=== PATIENT | male | born 1950 | race Caucasian/White ===

== ENCOUNTER 2021-03-01 10:46 | Outpatient (CLI) | payer MEDICARE, SELFPAY ==
--- NOTE | ~2021-03-01 | CT_ITS ---
EXAMINATION:CT lung screening DATE: 03/01/2021 11:16 INDICATION: Personal history of tobacco dependence. Current smoker with 30 pack year history. TECHNIQUE: Computed tomography (CT) of the chest was performed without intravenous contrast. Automate d exposure control and iterative reconstruction technique were employed. The dose-length product (DLP ) was 69.74 mGy-cm. COMPARISON: CT abdomen and pelvis 03/10/2009 FINDINGS: There is moderate emphysema. Calcified bilateral lung nodules and calcified right hilar lym ph nodes are consistent with old granulomatous disease. There is mild scarring at the lung apices. No pleural effusion. The heart size is normal. No pericardial effusion. There is mild right paratrachea l lymphadenopathy, likely reactive. Again seen is a 1.6 cm mass in right hepatic lobe, likely benign. Calcifications in the spleen are consistent with old granulomatous disease. There is a 4.0 cm cyst i n left kidney. There is mild thoracic spondylosis. IMPRESSION: 1. Lung-RADS category 2: Benign appearance or behavior. Continue annual screening with noncontrast lo w-dose chest CT in 12 months. Reviewed, dictated and finalized at location B. IMPRESSION: 1. Lung-RADS category 2: Benign appearance or behavior. Continue annual screeni ng with noncontrast low-dose chest CT in 12 months.
== END 2021-03-01 10:47 | disposition home or self-care (01) ==
LOC: ANHIMG 10:48
PROVIDERS: PCP Internal Medicine; Visit Provider Nurse Practitioner Family
DX: Z12.2 Encounter for screening for malignant neoplasm of respiratory organs (principal); Z87.891 Personal history of nicotine dependence
CPT/HCPCS: 71271

== ENCOUNTER 2022-02-13 13:42 | Outpatient (CLI) | payer MEDICARE, SELFPAY ==
--- NOTE | ~2022-02-13 | US_ITS ---
EXAMINATION: US carotid duplex BI DATE: 02/13/2022 14:50 INDICATION: Syncope and collapse. TECHNIQUE: Grayscale, color Doppler, and pulsed Doppler images of the cervical carotid arteries were obtained. The degree of vessel stenosis is placed in one of the following categories: normal, <50%, 5 0-69%, >=70% but less than near-occlusion, near-occlusion, or total occlusion. Note that percent sten osis relative to normal distal artery lumen diameter is indirectly measured from velocity measurement s as described by Sandro, et al. Radiology 2003; 229:340-346. COMPARISON: None. FINDINGS: RIGHT: The right common carotid artery (CCA) peak systolic velocity (PSV) is 92 cm/s. The right internal car otid artery (ICA) PSV is 112 cm/s. The right ICA end-diastolic velocity (EDV) is 36 cm/s. The right I CA/CCA PSV ratio is 1.2. Grayscale and color Doppler images yield an estimate of <50% diameter reduct ion from plaque in the ICA. There is antegrade flow in the right vertebral artery. LEFT: The left CCA PSV is 111 cm/s. The left ICA PSV is 107 cm/s. The left ICA EDV is 38 cm/s. The left ICA /CCA PSV ratio is 1.0. Grayscale and color Doppler images yield an estimate of <50% diameter reductio n from plaque in the ICA. There is antegrade flow in the left vertebral artery. IMPRESSION: 1. <50% stenosis in the right internal carotid artery. 2. <50% stenosis in the left internal carotid artery. Reviewed, dictated and finalized at location A.
== END 2022-02-13 13:43 | disposition home or self-care (01) ==
PROVIDERS: PCP Internal Medicine; Visit Provider Internal Medicine
DX: R55 Syncope and collapse (principal); I65.23 Occlusion and stenosis of bilateral carotid arteries
CPT/HCPCS: 93880

== ENCOUNTER 2022-03-05 10:47 | Outpatient (CLI) | payer MEDICARE, SELFPAY ==
--- NOTE | ~2022-03-05 | CT_ITS ---
EXAMINATION: CT lung screening DATE: 03/05/2022 11:05 INDICATION: Personal history of nicotine dependence, current smoker with 40 pack year history TECHNIQUE: Computed tomography (CT) of the chest was performed without intravenous contrast. The dose -length product (DLP) was 78.44 mGy-cm. Automated exposure control and iterative reconstruction techn [employer] were employed. COMPARISON: 03/01/2021 FINDINGS: There is moderate emphysema. There is a stable 3 mm nodule of the right lower lobe on image 63. Calcified pulmonary nodules and calcified right hilar lymph nodes are consistent with old granul omatous disease. The lungs are free of acute opacities. No pleural effusion or pneumothorax. There is mild bilateral gynecomastia. There is stable mild right paratracheal lymphadenopathy, likely reactiv e. A stable mass is noted in the right hepatic lobe. There is a cyst of the left kidney. IMPRESSION: 1. Lung-RADS category 2: Benign appearance or behavior. Continue annual screening with noncontrast lo w-dose chest CT in 12 months. Reviewed, dictated and finalized at location B. IMPRESSION: 1. Lung-RADS category 2: Benign appearance or behavior. Continue annual screeni ng with noncontrast low-dose chest CT in 12 months.
== END 2022-03-05 10:48 | disposition home or self-care (01) ==
PROVIDERS: PCP Internal Medicine; Visit Provider Physician Assistant
DX: Z12.2 Encounter for screening for malignant neoplasm of respiratory organs (principal); Z87.891 Personal history of nicotine dependence
CPT/HCPCS: 71271

== ENCOUNTER 2022-03-22 09:44 | Outpatient (CLI) | payer MEDICARE, SELFPAY ==
--- NOTE | ~2022-03-22 | CT_ITS ---
EXAMINATION: CT abdomen pelvis w con DATE: 03/22/2022 10:29 INDICATION: Bilateral lower abdominal mass. Weight loss. TECHNIQUE: Computed tomography (CT) of the abdomen and pelvis was performed with 100 mL Omnipaque 350 intravenous contrast. Automated exposure control and iterative reconstruction technique were employe d. The dose-length product was 165.83 mGy-cm. COMPARISON: CT abdomen and pelvis 03/10/2009 FINDINGS: The visualized portions of the lung bases demonstrate mild emphysema. Calcified right lung nodules are consistent with old granulomatous disease. No pleural effusion. The heart size is normal. No pericardial effusion. There is a 9 mm mass in left hepatic lobe that demonstrated peripheral hype renhancement on the prior CT, likely a hemangioma. There is a chronic 2.6 cm hyperenhancing mass in r ight hepatic lobe, which may be a hemangioma or focal nodular hyperplasia. The gallbladder is normal. Calcifications in the spleen are consistent with old granulomatous disease. The pancreas, adrenal gl ands, and right kidney are normal. There is a 4.5 cm cyst in left kidney. There is diverticulosis of the colon without evidence of diverticulitis. There are no dilated loops of bowel. The appendix is no rmal. There are no pathologically enlarged lymph nodes. There is no free intraperitoneal fluid. Again seen is prominent fat in left inguinal canal that may be a hernia. Again seen is a 5 mm subcutaneous radiopaque foreign body in right anterior abdomen. There is moderate lumbar spondylosis. IMPRESSION: 1. No evidence of malignancy. Reviewed, dictated and finalized at location A.
[2022-03-22 10:26] LABS: Estimated Glomerular Filt Rate > 60
== END 2022-03-22 09:45 | disposition home or self-care (01) ==
PROVIDERS: PCP Internal Medicine; Visit Provider Internal Medicine
DX: R63.4 Abnormal weight loss (principal); R19.04 Left lower quadrant abdominal swelling, mass and lump; R19.03 Right lower quadrant abdominal swelling, mass and lump; M47.816 Spondylosis without myelopathy or radiculopathy, lumbar region
CPT/HCPCS: 74177; Q9967

== ENCOUNTER 2022-05-07 10:05 | Outpatient (CLI) | payer MEDICARE, SELFPAY ==
--- NOTE | ~2022-05-07 | CT_ITS ---
EXAMINATION: CTA chest DATE: 05/07/2022 10:38 INDICATION: Shortness of breath. Syncope. TECHNIQUE: Computed tomographic angiography (CTA) of the chest was performed with 100 mL Omnipaque-35 0 intravenous contrast. Automated exposure control and iterative reconstruction technique were employ ed. The dose-length product was 220.52 mGy-cm. Maximum intensity projection 3D-reconstructions of the aorta and other arteries were constructed by the technologist on a separate workstation. COMPARISON: Chest CT 03/05/2022, CT abdomen and pelvis 03/10/2009 FINDINGS: There is moderate emphysema. There is mild scarring at the lung apices. Calcified bilateral lung nodules and calcified right hilar lymph nodes are consistent with old granulomatous disease. No pleural effusion. There are small bilateral posterior diaphragmatic hernias containing fat. Cardiome bina is noted. No pericardial effusion. Thoracic aorta measures 4.6 cm at the sinuses of Valsalva, 4. 0 cm at the sinotubular junction, 3.7 cm at the mid ascending aorta, 3.2 cm at the aortic isthmus, an d 3.1 cm in the mid descending aorta. There is mild aortic atherosclerosis. There is ulcerating plaqu e in aortic arch. There is a 1.9 cm hyperenhancing mass in right hepatic lobe stable from 03/10/2009, likely a hemangioma or focal nodular hyperplasia.. There are cysts in the kidneys measuring up to 4.6 cm on the left. There is mild thoracic spondylosis. IMPRESSION: 1. 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 2. Moderate emphysema. Reviewed, dictated and finalized at location A.
[2022-05-07 10:30] LABS: Estimated Glomerular Filt Rate > 60
== END 2022-05-07 10:06 | disposition home or self-care (01) ==
PROVIDERS: PCP Internal Medicine; Visit Provider Internal Medicine Cardiovascular Disease
DX: I77.810 Thoracic aortic ectasia (principal); Q25.43 Congenital aneurysm of aorta; J43.9 Emphysema, unspecified
CPT/HCPCS: 71275; Q9967

== ENCOUNTER 2022-05-16 00:21 | Day surgery (SDC) | payer MEDICARE, SELFPAY ==
--- NOTE | 2022-05-04 09:35 | PC.NURSE ---
Report to the Outpatient Waiting Room, entrance under the green pavilion located off [facility], at time __0830 on date __05/16/22 . Planned Procedure Time: __1030 . Time changes happen often and if your time is changed the preop area will call you the afternoon before. - You and your visitor will be asked to self-screen and do not enter if you have any COVID symptoms. - We encourage only one visitor and NO visitors under age 16 are allowed at this time. Your visitor will receive communication by the phone number that is given day of service. - The patient visitor is requested to social distance or may leave the building when not with patient due to restrictions. - A mask is required within the hospital. Patients may have clear liquids (water, carbonated beverages, clear teas, apple juice) until 3 hours prior to surgery with a maximum of 20 ounces. - No food from midnight until time of surgery - Infants may have breast milk until 4 hours before surgery, formula 6 hours prior to surgery. - Children will be allowed to drink immediately following surgery. If applicable, please bring a bottle or sippy cup to assist with drinking. Juice, water, soda, and popsicles are readily available. For infants on formula, please bring formula the day of surgery. Pacifiers are allowed. Take the following medications with a SIP of water the morning of surgery: ___AMIODARONE Medications to discontinue per physician NONE Date to take last dose HIBICLENS SHOWER MORNING OF SURGERY Please no make-up, nail maltese, hairspray, perfume, deodorant, or body powder the day of surgery. No jewelry (including any body piercings) or valuables the day of surgery, leave them at home. Please take a shower or bath the night before, or the morning of, surgery with an antibacterial soap. Wear comfortable, loose fitting clothing. Children are encouraged to wear pajamas. - Jewelry must be removed prior to entering the operating room. Rings and piercings that are not removed may be cut off. - The hospital will not accept responsibility for valuables. - Please leave all valuables, including medications, at home the day of surgery. If you are going home after surgery, a licensed patient transportation driver must drive you home. - NO public transportation without another adult. - We recommend that an adult stay with you for 24 hours following discharge. - We also recommend that you do not drive, make important decision, drink alcoholic beverages, or take any drugs that were not prescribed by your health care provider for at least 24 hours after your discharge time. For Pediatric surgeries, we recommend two adults accompany the child home. Follow any additional instructions given to you from your surgeon. If you or anyone in your household have experienced Covid symptoms in the past week, please notify your surgeon or the nurse liaison at the phone number below for possible testing. Telephone instructions given to __PATIENT and asked if any additional questions and then verbalized understanding. Patient advised to call surgeon office or pre surgery nurse liaison [phone] if any additional questions.
[2022-05-04 09:42] VITALS: BMI 20.2
--- NOTE | 2022-05-16 06:50 | WPDHPUPDATE1 ---
History and Physical Update Update Date/Time: 05/16/22 06:50 History and Physical has been reviewed, including an updated exam of the patient. There are NO changes in the patient's condition. Risks, benefits, and alternatives have been discussed and questions answered. Patient agrees to proceed with procedure.
[2022-05-16] MEDS: ACETAMINOPHEN 500 MG TABLET 1000 MG PO (08:43)
[2022-05-16 08:57] VITALS: BP 113/74; PULSE 52; RESP 16; TEMP 36.6; O2SAT 98
[2022-05-16] MEDS: LACTATED RINGERS 1,000 ML 30 ML IV CONT ×2 (09:01→11:51)
[2022-05-16] MEDS: KETOROLAC 15 MG/ML VIAL (*BKC) IV PUSH (09:01)
--- NOTE | 2022-05-16 09:46 | P.PNAN_ITS ---
Anes - Initial Pre Proc Eval Procedure: Operation Date: 05/16/22 10:30 Proposed Procedures p Repair of Bilateral Inguinal Hernias - Maverick Preston MD Date/Time: 05/16/22 09:46 Surgeon: Maverick Preston MD Pre Op Diagnosis: Toño Ing Hernias Patient Data Age: 72 Gender: M Height: 1.7 m Weight: 56.4 kg Last Vital Signs Temp 36.6 C 05/16/22 08:57 Pulse 52 L 05/16/22 08:57 Resp 16 05/16/22 08:57 BP 113/74 05/16/22 08:57 Pulse Ox 98 05/16/22 08:57 O2 Del Method Room Air 05/16/22 08:57 Allergies Allergy/AdvReac Type Severity Reaction Status Date / Time No Known Allergies Allergy Unknown Verified 05/16/22 08:41 Home Medications Medication Instructions Recorded Confirmed Type metoprolol succinate 25 mg 25 mg PO DAILY #30 tabs 05/15/22 05/16/22 Rx tablet,extended release 24 hr Patient hx anesthesia problems: none Family hx anesthesia problems: none Results Review: All pre-operative results and documents have been reviewed as part of the pre- operative evaluation. [facility] Past Medical History Medical History Abnormal weight loss Annual physical exam Body mass index [BMI] 20.0-20.9, adult (03/19/19) Cervicalgia Contracture of joint of finger of right hand Cough Encounter for screening for malignant neoplasm of prostate Hx of asbestos exposure Nicotine dependence, unspecified, uncomplicated Other fatigue Pulmonary nodule SOB (shortness of breath) Surgical History Surgical History H/O inguinal hernia repair H/O neck surgery Family History Family History Mother Family history of congestive heart failure Patient's mother is Father Patient's father is Family history of pancreatic cancer Social History Social History Smoking packs per day: 1 Smoking cigarettes per day: 20.0 Years smoked: 56 Smoking pack-years: 56.00 Smoking status: Current every day smoker Tobacco type: cigarettes Alcohol intake: never Living arrangements: with family Spiritual care concerns: No Anes - Eval Final PreProcedure Day of Procedure 05/16/22 09:46 Patient weight: thin Heart: regular rate and rhythm Lungs: decreased breath sounds Airway: Mallampati scale class II Neurological: alert and oriented Last oral intake: >/= 8 hours ASA classification: III Emergent: no Anesthetic plan: proceed Anesthesia type and monitoring: general GIVS and standard monitoring Results Review: All pre-operative results and documents have been reviewed as part of the pre- operative evaluation. Informed Consent: The patient's anesthetic plan and its attendant risks and benefits were discussed with the patient/family/POA. Questions were solicited and answers provided to the satisfaction of the patient/family/POA.
[2022-05-16] MEDS: ceFAZolin 2 GM/D5W 50 ML 2 GM/50 ML BAG IVPB (10:22)
[2022-05-16] MEDS: BUPIVACAINE/EPINEPHRINE 0.25% 50 ML VIAL INFILTRATE (10:48)
--- NOTE | 2022-05-16 11:45 | SUR.OPER ---
EBL 5ML
[2022-05-16 11:51] VITALS: BP 125/65; PULSE 48; RESP 18; O2SAT 99
[2022-05-16 12:15] VITALS: BP 136/62; PULSE 48; RESP 14
--- NOTE | 2022-05-16 12:15 | W.PM.PROC2 ---
Procedure Note - Detailed Date of Procedure 05/16/22 Pre-op Diagnosis Toño Ing Hernias Post-op Diagnosis Same Procedure Performed Repair bilateral inguinal hernias with large PerFix plug and patch Surgeon Maverick Preston MD Roof Truss Detailer Citlalli CALDERON Anesthesia General (G IV S), Local (0.25% Marcaine with epinephrine) and Other (Xaracoll) Indications Patient noted bulging in both groins back in February. He also gets a stretching uncomfortable sensation with this. He was seen in the office and found to have bilateral inguinal hernias. He is taken to surgery now for repair. Findings Patient had bilateral direct inguinal hernias Description of Procedure Patient was taken to surgery and anesthesia was introduced. Both groins and genitalia were prepped and draped. We started on the patient's left side. The proposed incision was marked on the skin. Local anesthetic was infiltrated into the skin and the subcutaneous. Incision was made and dissection was carried down through Santa's fascia to the external oblique aponeurosis. Crossing veins were cauterized and divided. The aponeurosis was exposed as was the external ring. I then infiltrated additional local deep to the aponeurosis in the area of the inguinal canal and its contents. The aponeurosis was opened laterally and extended medially through the external ring. I then dissected the leaves of the aponeurosis from the inguinal canal contents. The ileoinguinal nerve was left attached to the cord and was carefully preserved through the surgery. I mobilized the cord medially on a Pacolet drain. I then further mobilized the cord back to the internal ring. A direct hernia was noted fairly easily. It was somewhat lateral in the direct space. I dissected out from the spermatic cord. The hernia was dissected circumferentially. I then divided through the transversalis fascia with the cautery circumferentially just above the neck of the hernia. The hernia was then dunked into the retroperitoneum. The large PerFix plug was then placed in the defect. The edges were sutured to the transversalis fascia with interrupted 3-0 Vicryl suture. I then partially closed the defect with interrupted 3-0 Vicryl suture. The patch was cut to the appropriate size and placed over the inguinal canal floor. The lateral leaves were passed beyond the cord. I then put the 1st piece of Xaracoll over the patch. I laid the cord and ilioinguinal nerve over the Xaracoll. The external oblique aponeurosis was then closed with interrupted 3-0 Vicryl suture. Second piece of Xaracoll was then placed over the aponeurosis. Santa's fascia was closed with interrupted 3-0 Vicryl suture. Last pieces Xaracoll was placed in the subcutaneous. The skin was closed with subcuticular interrupted 4-0 Vicryl suture followed by a running 4-0 Monocryl skin suture. We quarantined this incision. It was covered with a towel. I then went to the right side of the patient to repair the right inguinal hernia. A mirror image right inguinal incision was drawn on the skin on the right side. Local was infiltrated into the skin and the deeper subcutaneous tissues. Incision was then made dissection carried down through the subcutaneous. Crossing veins were cauterized and divided. We continued this dissection down to the external oblique aponeurosis. The aponeurosis was exposed as was the external ring. Additional local was infiltrated deep to the aponeurosis in the area of the inguinal canal and its contents. I then opened the aponeurosis laterally and extended this incision medially through the external ring. The leaves the aponeurosis were freed from the underlying spermatic cord and inguinal canal contents. I mobilized the cord medially on a Allyn drain. I then further mobilized the cord back to the internal ring. The right side also had a direct hernia that was fairly medial in the direct space. I dissected the hernia sac free from the spermat
[2022-05-16 12:45] VITALS: BP 126/66; PULSE 46; RESP 20
--- NOTE | 2022-05-16 12:53 | SUR.PHASEII ---
8800 - dr. juan at bedside talking with pt and pt's daughter
[2022-05-16 13:15] VITALS: BP 126/66; PULSE 51; RESP 20
== END 2022-05-16 13:20 | disposition home or self-care (01) ==
PROVIDERS: PCP Internal Medicine; Visit Provider Surgery
PROC: (CPT 49505; principal; 2022-05-16 10:30)
DX: K40.20 Bilateral inguinal hernia, without obstruction or gangrene, not specified as recurrent (principal); F17.210 Nicotine dependence, cigarettes, uncomplicated
CPT/HCPCS: 49505; A9270; C1781; J0690; J1885; J2704; J3010; J7120

== ENCOUNTER 2022-10-11 07:45 | Emergency (ER) | payer MEDICARE, SELFPAY ==
[2022-10-11] VITALS (8 sets, daily range): BP systolic 161–171; BP diastolic 64–81; PULSE 55–75; RESP 17–21; TEMP 36.8; O2SAT 100
--- NOTE | ~2022-10-11 | CT_ITS ---
EXAMINATION: CT brain wo con DATE: 10/11/2022 08:23 INDICATION: Headache TECHNIQUE: Computed tomography (CT) of the head was performed without intravenous contrast. The mA wa s adjusted according to patient size. Iterative reconstruction technique was employed. Exam dose: 60 5.33 mGy-cm total exam DLP. COMPARISON: None FINDINGS: No intracranial mass lesion or hemorrhage or cerebrovascular accident, midline shift or mas s effect is detected. Mild cerebral atherosclerotic calcification is noted. Nonspecific diminished attenuation of the cerebral white matter, likely due to chronic small vessel i schemic changes. Small chronic lacunar infarct of the right cerebellar hemisphere. No subdural or epidural hematoma. No fracture or bone destruction of the cranial vault. The mastoid air cells and included paranasal si nuses are unremarkable. IMPRESSION: Mild cerebral atherosclerosis Small chronic lacunar infarct right cerebellar hemisphere No acute intracranial finding Reviewed, dictated and finalized at [facility]. Reviewed, dictated and finalized at [facility].
--- NOTE | 2022-10-11 08:05 | ECG_ITS ---
Measurements Intervals [place] Rate: 69 P: 73 DE: 168 QRS: 56 QRSD: 89 T: 71 QT: 419 QTc: 449 Interpretive Statements SINUS RHYTHM ATRIAL PREMATURE COMPLEX POSSIBLE LEFT ATRIAL ENLARGEMENT DELAYED PRECORDIAL R/S TRANSITION BORDERLINE ST-T WAVE ABNORMALITY- ANTERIOR LEADS BASELINE ARTIFACT-I, III, AVR, AVL BORDERLINE ECG NO PREVIOUS ECG AVAILABLE FOR COMPARISON Electronically Signed On 10-11-2022 9:16:16 CDT by Jerald Morris D.O.
[2022-10-11 08:21] LABS: Basophils Absolute Auto 0.1 K/mm3 (0.0-0.1); Basophils Percent Auto 0.8 % (0.2-1.2); Eosinophils Absolute Auto 0.2 K/mm3 (0-0.3); Eosinophils Percent Auto 2.7 % (0-4.4); Hematocrit 44.8 % (42.0-52.0); Hemoglobin 14.2 g/dL (14.0-18.0); Immature Granulocyte Absolute 0.01 K/mm3 (0.00-0.031); Immature Granulocyte Percent A 0.1 % (0-0.5); Lymphocytes Absolute Auto 2.47 K/mm3 (0.9-3.2); Lymphocytes Percent Auto 33.4 % (18.3-44.2); Mean Corpuscular HGB Conc 31.7 g/dl (32-36); Mean Corpuscular Hemoglobin 28.3 pg (26-34); Mean Corpuscular Volume 89.2 fl (80-100); Mean Platelet Volume 10.4 fl (7.4-10.4); Monocytes Absolute Auto 0.5 K/mm3 (0.1-0.6); Monocytes Percent Auto 7.2 % (2.6-8.5); Neutrophils Absolute Auto 4.1 K/mm3 (1.3-6.7); Neutrophils Percent Auto 55.8 % (45.5-73.1); Platelet Count Result 300 k/mm3 (150-375); Red Blood Count 5.02 M/mm3 (4.6-6.20); Red Cell Distribution Width 13.9 % (11.5-14.5); White Blood Count 7.4 K/mm3 (4.5-10.0)
[2022-10-11] MEDS: SODIUM CHLORIDE 0.9% IV 1,000 ML 999 ML IV CONT (08:24)
[2022-10-11] MEDS: KETOROLAC 15 MG/ML VIAL (*BKC) IV PUSH (08:26)
[2022-10-11 09:29] LABS: Alanine Aminotransferase 10 U/L (6-50); Albumin Level 3.8 g/dL (3.5-5.1); Alkaline Phosphatase 53 U/L (38-126); Anion Gap 6 mmol/L (8-16); Aspartate Amino Transferase 18 U/L (17-59); Bilirubin,Total 0.5 mg/dL (0.2-1.3); Blood Urea Nitrogen 15 mg/dL (9-20); Calcium 8.5 mg/dL (8.4-10.2); Carbon Dioxide 25 mmol/L (22-30); Chloride 107 mmol/L (98-107); Estimated CRCL calculation 66 ml/min; Estimated Glomerular Filt Rate > 60; Glucose 92 mg/dL (65-110); Potassium 3.8 mmol/L (3.4-5.0); Sodium 138 mmol/L (137-145)
--- NOTE | 2022-10-11 11:51 | ED.GENADULT ---
HPI - General Adult General Chief complaint: Dizziness Stated complaint: Multiple complaints Time Seen by Provider: 10/11/22 07:49 History of Present Illness HPI narrative: Patient is a 72-year-old male who presents ER with reports of frontal headache. Throbbing. Ongoing for 3 days. No trauma. Reports some dizziness that occurs with movement. Mild nausea. No fevers or chills or sweats. No focal weakness or numbness in arm or leg Related Data Allergies Allergy/AdvReac Type Severity Reaction Status Date / Time No Known Allergies Allergy Unknown Verified 10/11/22 07:53 Review of Systems Constitutional: Constitutional: Denies chills, Denies fatigue and Denies fever(s) Eyes: Eyes: Denies change in vision and Denies photophobia ENT: Denies nasal congestion and Denies sore throat Respiratory: Respiratory: Denies chest congestion, Denies cough and Denies dyspnea Gastrointestinal: Gastrointestinal: Denies abdominal pain, Denies bloating and Denies constipation Neurologic: Reports dizziness, Reports headache(s), Denies focal weakness and Denies numbness PMFSH Past Medical History Medical History Abnormal weight loss Annual physical exam Body mass index [BMI] 20.0-20.9, adult (03/19/19) Cervicalgia Contracture of joint of finger of right hand Cough Encounter for screening for malignant neoplasm of prostate Hx of asbestos exposure Nicotine dependence, unspecified, uncomplicated Other fatigue Pulmonary nodule SOB (shortness of breath) Surgical History Surgical History H/O inguinal hernia repair H/O neck surgery Hx of bilateral inguinal hernia repair Repair bilateral inguinal hernias with large PerFix plug and patch 06/04/22 Family History Family History Mother Family history of congestive heart failure Patient's mother is Father Patient's father is Family history of pancreatic cancer Social History Social History (Updated 08/08/22 @ 09:47 by Snehal Vela MA) Smoking packs per day: 1 Smoking cigarettes per day: 20.0 Years smoked: 56 Smoking pack-years: 56.00 Smoking status: Current every day smoker Tobacco type: cigarettes Alcohol intake: never Lack of Transportation: No Lack of Food: Never True Current Housing: I Have Housing Concerned About Future Housing: No Difficulty Paying Gas/Electric Bills: No Difficulty Paying for Meds: No Currently Unemployed: No Education: Associate Degree Difficulty w/ Childcare or Family Care: No Living arrangements: with family Spiritual care concerns: No Exam Narrative: GENERAL: Well-appearing, well-nourished, and in no acute distress. HEAD: Normocephalic, atraumatic. EYES: PERRL and EOMI. ENT: Mucous membranes moist. CHEST: Clear to auscultation. No respiratory distress. HEART: Regular rate and rhythm. Normal peripheral pulses. ABDOMEN: Soft, nontender, nondistended. EXTREMITIES: Normal range of motion. No edema. NEURO: Alert and oriented x3. PSYCH: Normal mood and affect. Course Course Emergency Course: Minimal improvement with Toradol. Headache resolved with morphine and dizziness resolved with meclizine. Discharge home with supportive care. No focal deficits. No thunderclap headache. No fever. Vital Signs Vital signs: Vital Signs Temperature 98.2 F 10/11/22 07:49 Pulse Rate 75 10/11/22 07:49 Respiratory Rate 18 10/11/22 07:49 Blood Pressure 161/81 H 10/11/22 07:49 Pulse Oximetry 100 10/11/22 07:49 Oxygen Delivery Room Air 10/11/22 07:49 Temperature 98.2 F 10/11/22 07:49 Pulse Rate 57 L 10/11/22 09:30 Respiratory Rate 18 10/11/22 09:30 Blood Pressure 171/81 H 10/11/22 09:30 Pulse Oximetry 100 10/11/22 09:30 Oxygen Delivery Room Air 10/11/22 07:49 Medical Decision Making Vital Sig
[2022-10-11] MEDS: ONDANSETRON INJ 4 MG/2 ML VIAL IV PUSH (12:08)
[2022-10-11] MEDS: MORPHINE SULFATE (*CRX) 4 MG/ML INJ IV PUSH (12:09)
[2022-10-11] MEDS: MECLIZINE HCL 25 MG TABLET PO (12:09)
== END 2022-10-11 14:05 | disposition home or self-care (01) ==
PROVIDERS: Emergency Provider Emergency Medicine; PCP Internal Medicine
DX: R51.9 Headache, unspecified (principal); R42 Dizziness and giddiness; F17.210 Nicotine dependence, cigarettes, uncomplicated; I49.1 Atrial premature depolarization; R94.31 Abnormal electrocardiogram [ECG] [EKG]
CPT/HCPCS: 36415; 70450; 80053; 85025; 93005; 96361; 96374; 96375; 99284; A9270; J1885; J2270; J2405; J7030

== ENCOUNTER 2022-12-24 10:12 | Observation (INO) | payer MEDICARE, SELFPAY ==
[2022-12-24] VITALS (58 sets, daily range): BP systolic 131–173; BP diastolic 59–93; PULSE 45–63; RESP 11–24; TEMP 36.1–36.4; O2SAT 97–100; BMI 16.7
--- NOTE | ~2022-12-24 | US_ITS ---
EXAMINATION: US carotid duplex BI DATE: 12/24/2022 23:32 INDICATION: Syncope. TECHNIQUE: Grayscale, color Doppler, and pulsed Doppler images of the cervical carotid arteries were obtained. The degree of vessel stenosis is placed in one of the following categories: normal, <50%, 5 0-69%, >=70% but less than near-occlusion, near-occlusion, or total occlusion. Note that percent sten osis relative to normal distal artery lumen diameter is indirectly measured from velocity measurement s as described by Sandro, et al. Radiology 2003; 229:340-346. COMPARISON: Ultrasound 02/13/2022 FINDINGS: RIGHT: The right common carotid artery (CCA) peak systolic velocity (PSV) is 95 cm/s. The right internal car otid artery (ICA) PSV is 97 cm/s. The right ICA end-diastolic velocity (EDV) is 25 cm/s. The right IC A/CCA PSV ratio is 1.0. Grayscale and color Doppler images yield an estimate of <50% diameter reducti on from plaque in the ICA. There is antegrade flow in the right vertebral artery. LEFT: The left CCA PSV is 77 cm/s. The left ICA PSV is 76 cm/s. The left ICA EDV is 20 cm/s. The left ICA/C CA PSV ratio is 1.0. Grayscale and color Doppler images yield an estimate of <50% diameter reduction from plaque in the ICA. There is antegrade flow in the left vertebral artery. IMPRESSION: 1. <50% stenosis in the right internal carotid artery. 2. <50% stenosis in the left internal carotid artery. Reviewed, dictated and finalized at location [facility].
--- NOTE | ~2022-12-24 | XR_ITS ---
EXAMINATION: XR chest 2V 12/24/2022 12:58 INDICATION: Syncope. Hypertension. PROCEDURE: PA and lateral views of the chest COMPARISON: 08/15/2012 FINDINGS: The lungs are clear. The lungs are hyperinflated which is consistent with, but not diagnost ic of chronic obstructive pulmonary disease. The cardiomediastinal silhouette is within normal limits . There are no pleural effusions. There is no pneumothorax suspected. There are calcified granulom as of the right lung base. IMPRESSION: 1: NO ACUTE CARDIOPULMONARY DISEASE. Reviewed, dictated and finalized at location []
--- NOTE | 2022-12-24 10:15 | ECG_ITS ---
Measurements Intervals Wade Rate: 54 P: 82 KS: 172 QRS: 65 QRSD: 94 T: 71 QT: 448 QTc: 426 Interpretive Statements SINUS BRADYCARDIA POSSIBLE LEFT ATRIAL ENLARGEMENT BORDERLINE ECG COMPARED TO ECG 10/11/2022 07:55:05 SINUS BRADYCARDIA NOW PRESENT Electronically Signed On 12-24-2022 17:06:02 CDT by Rasheed Blunt M.D.
[2022-12-24 10:39] LABS: Basophils Absolute Auto 0.1 K/mm3 (0.0-0.1); Basophils Percent Auto 0.8 % (0.2-1.2); Eosinophils Absolute Auto 0.3 K/mm3 (0-0.3); Eosinophils Percent Auto 4.7 % (0-4.4); Hematocrit 45.9 % (42.0-52.0); Hemoglobin 14.5 g/dL (14.0-18.0); Immature Granulocyte Absolute 0.01 K/mm3 (0.00-0.031); Immature Granulocyte Percent A 0.2 % (0-0.5); Lymphocytes Absolute Auto 1.78 K/mm3 (0.9-3.2); Lymphocytes Percent Auto 29.7 % (18.3-44.2); Mean Corpuscular HGB Conc 31.6 g/dl (32-36); Mean Corpuscular Hemoglobin 28.4 pg (26-34); Mean Platelet Volume 10.1 fl (7.4-10.4); Monocytes Absolute Auto 0.5 K/mm3 (0.1-0.6); Neutrophils Absolute Auto 3.3 K/mm3 (1.3-6.7); Neutrophils Percent Auto 55.6 % (45.5-73.1); Platelet Count Result 263 k/mm3 (150-375); Red Cell Distribution Width 14.1 % (11.5-14.5)
[2022-12-24 10:57] LABS: Alanine Aminotransferase 13 U/L (6-50); Albumin Level 4.4 g/dL (3.5-5.1); Alkaline Phosphatase 65 U/L (38-126); Anion Gap 4 mmol/L (8-16); Aspartate Amino Transferase 25 U/L (17-59); Bilirubin,Total 0.5 mg/dL (0.2-1.3); Blood Urea Nitrogen 15 mg/dL (9-20); Calcium 9.1 mg/dL (8.4-10.2); Carbon Dioxide 35 mmol/L (22-30); Chloride 101 mmol/L (98-107); Estimated CRCL calculation 55 ml/min; Estimated Glomerular Filt Rate > 60; Glucose 98 mg/dL (65-110); Potassium 3.5 mmol/L (3.4-5.0); Sodium 140 mmol/L (137-145)
--- NOTE | 2022-12-24 12:48 | ED.SYNCOPE ---
HPI - Syncope General Chief Complaint: Syncope Stated Complaint: syncopal episode/htn Time Seen by Provider: 12/24/22 10:24 History of Present Illness HPI narrative: Patient is a 72-year-old male who presents to the ER status post syncope. Patient reports he was sitting on his porch watching his dog have bowel movement when he felt suddenly lightheaded and then lost consciousness and woke up on the ground. Unknown downtime. No chest pain or chest pressure or difficulty breathing. No history of arrhythmia. Reports she has history of an ascending aortic aneurysm that is not yet ready to be repaired. He follows with Dr. Morris. Berna at this time. Related Data Allergies Allergy/AdvReac Type Severity Reaction Status Date / Time No Known Allergies Allergy Unknown Verified 12/24/22 10:36 Review of Systems Review of Systems: All systems reviewed & are unremarkable except as noted in HPI and below Constitutional: Constitutional: Denies chills, Denies fatigue and Denies fever(s) Cardiovascular: Cardiovascular: Denies chest pain, Denies radiating jaw, neck or arm pain and Denies slow heart rate (Currently bradycardic but does not feel it.) Respiratory: Respiratory: Denies cough and Denies dyspnea Gastrointestinal: Gastrointestinal: Denies abdominal pain, Denies nausea and Denies vomiting Neurologic: Reports syncope, Denies headache(s), Denies focal weakness and Denies numbness PMFSH Past Medical History Medical History Abnormal weight loss Annual physical exam Body mass index [BMI] 20.0-20.9, adult (03/19/19) Cervicalgia Contracture of joint of finger of right hand Cough Encounter for screening for malignant neoplasm of prostate Hx of asbestos exposure Nicotine dependence, unspecified, uncomplicated Other fatigue Pulmonary nodule SOB (shortness of breath) Surgical History Surgical History H/O inguinal hernia repair H/O neck surgery Hx of bilateral inguinal hernia repair Repair bilateral inguinal hernias with large PerFix plug and patch 06/04/22 Family History Family History Mother Family history of congestive heart failure Patient's mother is Father Patient's father is Family history of pancreatic cancer Social History Social History Smoking packs per day: 1 Smoking cigarettes per day: 20.0 Years smoked: 56 Smoking pack-years: 56.00 Smoking status: Current every day smoker Tobacco type: cigarettes Alcohol intake: never Lack of Transportation: No Lack of Food: Never True Current Housing: I Have Housing Concerned About Future Housing: No Difficulty Paying Gas/Electric Bills: No Difficulty Paying for Meds: No Currently Unemployed: No Education: Associate Degree Difficulty w/ Childcare or Family Care: No Living arrangements: with family Spiritual care concerns: No Exam Narrative: GENERAL: Well-appearing, well-nourished, and in no acute distress. HEAD: Normocephalic, atraumatic. EYES: PERRL and EOMI. ENT: Mucous membranes moist. CHEST: Clear to auscultation. No respiratory distress. HEART: Regular rate and rhythm. No murmur heard. Normal peripheral pulses. ABDOMEN: Soft, nontender, nondistended, normal active bowel sounds. EXTREMITIES: Normal range of motion. No edema. SKIN: Warm, dry, no rash. NEURO: No focal deficits. Alert and oriented x3. PSYCH: Normal mood and affect. Course Course Emergency Course: Patient accepted to hospitalist service, cardiology will consult. 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
[2022-12-24 13:03] LABS: Troponin I < 0.012 ng/mL (0.000-0.034)
[2022-12-24] MEDS: ACETAMINOPHEN 325 MG TABLET 650 MG PO (15:01)
--- NOTE | 2022-12-24 17:22 | ADMGEN ---
This patient, Luis Felipe Robert, was admitted to [facility] Surg Room 326-01. Patient/family oriented to hospital policies and general routines including ID bracelet, bed and alarms, visiting hours, pain management, procedures, bathroom and other care routines, personal items, smoking policy, room service/diet, and visiting hours. Information on how to activate the Rapid Response Team has been discussed. Patient/Family are encouraged to report perceived risks to care and to ask questions if they do not understand what they are told or what they should do.
[2022-12-24] MEDS: HYDROcodone/acetaminophen (*CRX) 5-325 MG TABLET 1 TAB PO ×2 (18:01→22:25)
--- NOTE | 2022-12-24 20:53 | PM.IMHP ---
H&P: HPI History of Present Illness Date/Time: 12/24/22 20:50 Chief Complaint: Syncope. Narrative: This is a very pleasant 72-year-old male smoker with history of chronic obstructive pulmonary artery disease, ascending aortic aneurysm, and paroxysmal ventricular tachycardia who presented to the emergency department via private vehicle from home for evaluation after syncopal episode. The patient provides the following history. He has not been feeling himself for couple of days and he reports having occasional episodes of headache and fatigue which seems to correlate to his blood pressures running high, as high as 199/90. This is unusual for him and his blood pressures are typically very well controlled if not on the low end of normal. This morning he was sitting out on the porch while his dog was going to the bathroom and suddenly he felt warm and lightheaded. The next thing he knows he is waking up on his side on the ground. He is not certain as to how long he was unresponsive but he does not think it was a brief episode. He felt ?like I had been hit with a baseball bat all over? once he came to. He had a similar episode in March 2022 and he wore a 27 day event monitor which showed a predominantly sinus rhythm and 1 episode of nonsustained ventricular tachycardia at 195 beats per minute lasting 16 beats one afternoon while he was napping. He has been on metoprolol since that time and has not had any other episodes before today. He denies injury in the fall. He has not had chest or pleuritic pain he denies palpitations and shortness of breath. He does not drink much in the way of alcohol. He has no known history of ischemic disease. Blood pressure was 170/76 on arrival to the emergency department. His heart rate has been persistently in the mid 50s which seems to be his baseline. CMP and CBC were essentially unremarkable and baseline troponin was negative. EKG showed sinus bradycardia without ST segment depressions or elevations. Chest x-ray showed no acute cardiopulmonary disease. He is being admitted in this setting for close monitoring and Cardiology consultation. At the time my evaluation he is resting comfortably and has no specific complaints. He is however concerned about the event that happened today. Review of Systems Review of Systems: Twelve systems were reviewed. He has been monitoring his blood pressures at home and they seem to be fluctuating recently. He is typically at the lower end of normal however he has occasions where he develops fatigue and headache and he has noted his blood pressure to be as high as 199/90. He brought his cuff in with him today and it seems to correlate with the readings we have been getting here at the hospital. No recent cold or flu symptoms. He denies significant alcohol use. He does drink caffeine in the form of tea most days. Appetite has not been great for some time and he has lost about 30 lb in the last year and a half unintentionally. He does have COPD/emphysema but does not seem to be very limited by that. No significant cough. He has not noticed blood in the stool. He is up-to-date on PSA screening and surveillance chest CT given the fact that he is a smoker. Except as documented, all other systems were reviewed and are negative. [facility] Past Medical History Medical History (Updated 12/24/22 @ 20:58 by Valentina Esteban PA-C) Ascending aortic aneurysm Chronic obstructive pulmonary disease Migraine Nicotine dependence Pulmonary nodule Transient ischemic attack Surgical History Surgical History History of bilateral inguinal hernia repair History of colonoscopy History of inguinal hernia repair History of neck surgery Family History Family History Mother Patient's mother is Family history of congestive heart failure Diabetes mellitus Father Patient's father is deceas
[2022-12-24] MEDS: NICOTINE (*PBKC) 21 MG PATCH 1 PATCH TRANSDERM (23:23)
[2022-12-24] MEDS: POTASSIUM CHLORIDE 20 MEQ ER TABLET 40 MEQ PO (23:24)
[2022-12-25] VITALS (15 sets, daily range): BP systolic 128–158; BP diastolic 68–84; PULSE 57–83; RESP 16–18; TEMP 36–36.6; O2SAT 94–99; BMI 16.7
--- NOTE | 2022-12-25 | ECHO_ITS ---
Patient Info Name: Luis Felipe Robert Age: 72 years : 1950 Gender: Male Ht: 67 in Wt: 106 lbs BSA: 1.49 m2 HR: 63 bpm BP: 145 / 83 mmHg Heart Rhythm: Sinus Rhythm Technical Quality: Fair Exam Date: 12/25/2022 9:55 AM Exam Location: [facility] Patient Status: Inpatient Admit Date: 12/24/2022 Staff Ordering Physician: Valentina Esteban PA-C Senior Research Executive: Andie Hobbs RDCS Attending Provider: Stas Willson MD Referring Physician: Carlito MELENDEZ; Exam Type: CA echo doppler color flow Study Info Indications - syncope Complete two-dimensional, color flow and Doppler transthoracic echocardiogram is performed. Contrast/Agitated Saline Contrast/Ag. Saline: Definity Amount: 3.00 ml Summary 1. Complete two-dimensional, color flow and Doppler transthoracic echocardiogram is performed. 2. Left ventricular chamber dimension is normal. 3. Left ventricular systolic function is normal, estimated at 65-70%. 4. There is mildly increased left ventricular wall thickness. 5. The left ventricular diastolic function is grade I diastolic dysfunction. 6. There is no aortic valve stenosis. 7. There is mild to moderate tricuspid valve regurgitation. 8. Mild pulmonary hypertension, estimated pulmonary arterial systolic pressure is 36 mmHg. 9. Right atrial chamber dimension is mildly enlarged. Filamentous mobile echodensity in right atrium consistent with Chiari network, normal variant. Left Ventricle Left ventricular chamber dimension is normal. Left ventricular systolic function is normal, estimated at 65-70%. There is mildly increased left ventricular wall thickness. The left ventricular diastolic function is grade I diastolic dysfunction. Right Ventricle Right ventricular chamber dimension is normal. Right ventricular systolic function is normal. Left Atria Left atrial chamber dimension is normal. Right Atria Right atrial chamber dimension is mildly enlarged. Filamentous mobile echodensity in right atrium consistent with Chiari network, normal variant. Aortic Valve The aortic valve is trileaflet. There is mild aortic valve sclerosis. There is no aortic valve stenosis. There is mild aortic valve regurgitation. Pulmonic Valve The pulmonic valve is not well visualized. There is mild pulmonic regurgitation. Mitral Valve The mitral valve has normal leaflets. There is mild mitral valve regurgitation. Tricuspid Valve The tricuspid valve leaflets are normal. There is mild to moderate tricuspid valve regurgitation. Mild pulmonary hypertension, estimated pulmonary arterial systolic pressure is 36 mmHg. Pericardium/Pleural The pericardium appears normal. There is trivial pericardial effusion. Inferior Vena Cava Normal inferior vena cava with >50% collapse upon inspiration consistent with normal right atrial pressure, 5 mmHg. Aorta The aortic root size at the sinus of Valsalva is borderline dilated. Left Ventricular Outflow Tract Name Value Normal LVOT 2D LVOT Diameter 2.2 cm LVOT Doppler LVOT Peak Gradient 3 mmHg LVOT Mean Gradient 2 mmHg LVOT VTI 20 cm
[2022-12-25 06:58] LABS: Anion Gap -1 mmol/L (8-16); Blood Urea Nitrogen 18 mg/dL (9-20); Calcium 8.3 mg/dL (8.4-10.2); Carbon Dioxide 36 mmol/L (22-30); Chloride 103 mmol/L (98-107); Estimated CRCL calculation 56 ml/min; Estimated Glomerular Filt Rate > 60; Glucose 82 mg/dL (65-110); Sodium 138 mmol/L (137-145)
[2022-12-25] MEDS: NICOTINE (*PBKC) 21 MG PATCH 1 PATCH TRANSDERM (09:34)
[2022-12-25] MEDS: hydrALAZINE 10 MG TABLET PO ×4 (09:35→20:59)
[2022-12-25] MEDS: ACETAMINOPHEN/ASPIRIN/CAFFEINE 250-250-65 MG TABLET 1 TABLET PO (09:57)
--- NOTE | 2022-12-25 10:32 | PM.IMPN ---
Progress Note: A&P Assessment and Plan (1) Syncope: Code(s): R55 - Syncope and collapse Status: Acute Assessment and Plan: Likely secondary to bradycardia. Continue to monitor on telemetry. Cardiology consulted. Hold metoprolol for now. We will use hydralazine for elevated blood pressure (2) Chronic obstructive pulmonary disease: Code(s): J44.9 - Chronic obstructive pulmonary disease, unspecified Status: Acute Assessment and Plan: Stable (3) Nicotine dependence: Code(s): F17.200 - Nicotine dependence, unspecified, uncomplicated Status: Acute Assessment and Plan: Patient counseled on smoking cessation. Nicotine patch ordered Subjective Date/time seen: 12/25/22 10:32 Interval history: Patient currently asymptomatic Review of Systems Review of Systems: Negative other than HPI Exam Narrative: General: Well-developed, thin male sitting up in bed in no acute distress. Weight: 48.3 kg. BMI: 16.7. HEENT: PERRL, EOMI. Sclera anicteric. Oral mucosa moist. Oropharynx clear. Neck: Supple. No carotid bruits. Respiratory: Lungs are clear to auscultation bilaterally. Cardiovascular: Regular rate and rhythm with S1-S2. Gastrointestinal: Abdomen is soft, nontender, and nondistended with positive bowel sounds. Skin: Warm and dry. No rash or lesions on limited exam. Extremities: No cyanosis, clubbing, or edema. Radial and pedal pulses intact. Neurological: Alert. Cranial nerves 2-12 are grossly intact. No gross focal deficits to casual conversation. Psychiatric: Pleasant and cooperative with normal mood and affect. Judgment and insight intact. Objective Data Vital Signs Vital Signs: Vital Signs - 24 hr 12/24/22 10:34 12/24/22 10:45 12/24/22 10:46 Temperature Pulse Rate 49 L 51 L Respiratory Rate 18 19 Blood Pressure 139/78 Pulse Oximetry 99 98 99 Oxygen Delivery Room Air 12/24/22 11:00 12/24/22 11:01 12/24/22 11:15 Temperature Pulse Rate 46 L 54 L 54 L Respiratory Rate 16 17 Blood Pressure 143/81 H 163/81 H Pulse Oximetry 98 97 Oxygen Delivery 12/24/22 11:15 12/24/22 11:02 12/24/22 11:15 Temperature Pulse Rate 49 L 55 L Respiratory Rate 19 11 L Blood Pressure 140/84 163/81 H Pulse Oximetry 97 98 Oxygen Delivery 12/24/22 11:16 12/24/22 11:17 12/24/22 11:30 Temperature Pulse Rate 55 L 53 L 46 L Respiratory Rate 19 20 12 Blood Pressure 140/84 Pulse Oximetry 99 Oxygen Delivery 12/24/22 11:31 12/24/22 11:45 12/24/22 11:46 Temperature Pulse Rate 46 L 45 L 46 L Respiratory Rate 19 19 20 Blood Pressure 147/89 H 164/78 H Pulse Oximetry 100 99 99 Oxygen Delivery 12/24/22 12:00 12/24/22 12:01 12/24/22 12:15 Temperature Pulse Rate 45 L 48 L 62 Respiratory Rate 19 20 16 Blood Pressure 166/86 H Pulse Oximetry 99 99 98 Oxygen Delivery 12/24/22 12:16 12/24/22 12:30 12/24/22 12:31 Temperature Pulse Rate 54 L 47 L 48 L Respiratory Rate 20 20 20 Blood Pressure 156/87 H 163/81 H Pulse Oximetry 99 99 99 Oxygen Delivery 12/24/22 12:45 12/24/22 12:46 12/24/22 13:00 Temperature Pulse Rate 49 L 50 L 54 L Respiratory Rate 14 12 18 Blood Pressure 159/86 H Pulse Oximetry 99 99 99 Oxygen Delivery 12/24/22 13:06 12/24/22 13:15 12/24/22 13:16 Temperature Pulse Rate 62 50 L 55 L Respiratory Rate 24 H 14 16 Blood Pressure 157/87 H 159/87 H Pulse Oximetry 100 100 100 Oxygen Delivery 12/24/22 13:30 12/24/22 13:31 12/24/22 13:45 Temperature Pulse Rate 52 L 54 L 51 L Respiratory Rate 24 H 16 19 Blood Pressure 162/82 H Pulse Oximetry 100 100 100 Oxygen Delivery 12/24/22 13:46 12/24/22 14:00 12/24/22 14:01 Temperature Pulse Rate 54 L 63 63 Respiratory Rate 23 H 19 15 Blood Pressure 164/84 H 173/93 H Pulse Oximetry 99 98 100 Oxygen Delivery 12/24/22 14:15 12/24/22 14:16 12/24/22 14:30 Temperature
--- NOTE | 2022-12-25 15:02 | PM.CNCAR ---
Assessment and Plan Assessment and plan (1) Syncope: Qualifiers: Syncope type: unspecified Qualified Code(s): R55 - Syncope and collapse Code(s): R55 - Syncope and collapse Status: Acute Assessment and Plan: Etiology remains unclear. As patient describes he had been seated for 5-10 minutes next thing he recalls waking up on the ground. He states he had no warning or preceding symptoms of lightheadedness, dizziness, palpitation, chest pain, recent illness or preceding headache. A patient was bradycardic presentation he was asymptomatic in this regard and is not the cause of his symptoms. However, I cannot exclude possibility of tachy and or bradyarrhythmia was contribution as discussed at great length with the patient and his daughter bedside. All questions were answered to their satisfaction. Patient has had 2 episodes with complete loss of consciousness over the past year. He has had very frequent episodes of near-syncope and or transient lightheadedness, dizziness with position change and well seated which lasted few seconds and resolve but more often associated with severe headache for which he takes Excedrin. He does not know why he has been having more frequent headaches. He had noted his blood pressure was in the 190s prior to coming in after he passed out but had not been checking his blood pressure consistency. Metoprolol has been held. Carotid Dopplers personally reviewed and discussed negative for obstructive disease less than 50% stenosis bilaterally which is unchanged compared study performed a year earlier. Carotid arterial obstruction is not his problem. Discussed at length benefits, risks and alternatives to loop recorder implantation for evaluation for tachy/Marlen arrhythmias contribution to syncope and near-syncope. Given patient's very frequent near syncopal symptoms would not be unreasonable to repeat a 30 day classroom monitor upon discharge particular given recent syncopal spell and if at that time these results are unrevealing then proceed with an implantable loop recorder. They verbalized understanding agreed with plan of care. Patient will follow-up with Dr. Morris as an outpatient. By history there is no clear evidence for seizure although this cannot be entirely excluded. Patient has been advised not to drive until otherwise informed. Patient and his daughter verbalized understanding and agreed. Telemetry thus far does not reveal concerning tachy or bradyarrhythmia, prolonged pauses or high-grade AV blocks. Will review 2D echocardiogram with recommendations to follow. If no concerning or tachy-marlen arrhythmias, significant orthostasis and BP is control with medical therapy patient may then be considered for discharge home to follow up as an outpatient with Dr. Morris and his PCP. Spent 83 minutes in the care of this patient including discussions at bedside with the patient and his daughter, nursing staff, chart review, medical decision-making, and documentation. (2) Near syncope: Code(s): R55 - Syncope and collapse Status: Acute Assessment and Plan: Patient reports frequent intermittent near syncopal symptoms lightheaded, dizziness which passed several seconds occurring at rest, sometimes with position change or even sitting in a chair without warning. These symptoms sound vasovagal and orthostatic nature, however, orthostatics have not yet been documented. Patient reports frequent or recent headaches with occasional nausea and vomiting with near syncopal symptoms. (3) Hypertension: Code(s): I10 - Essential (primary) hypertension Status: Acute Assessment and Plan: BP elevated but asymptomatic at this time. I would favor simplification of his antihypertensive regimen. Consider discontinuation of hydralazine in favor of losartan 25 mg daily. Avoid symptomatic hypotension. Check orthostatic vital signs as patient reports symptoms concerning in this reg
[2022-12-26] MEDS: hydrALAZINE 10 MG TABLET PO (08:26)
[2022-12-26] MEDS: NICOTINE (*PBKC) 21 MG PATCH 1 PATCH TRANSDERM (08:26)
--- NOTE | 2022-12-26 19:13 | PC.NURSE ---
Paper documentation exists on this patient due to [facility] System downtime on 12/26/22 from 0030 to [1930] .
--- NOTE | 2022-12-27 06:45 | PN_ITS ---
DATE OF SERVICE: 12/26/2022 TIME OF SERVICE: 12:38 p.m. REASON FOR FOLLOWUP: Syncope. SUBJECTIVE: The patient feels well this morning. Denies dizziness or lightheadedness. No new issues overnight. No palpitations, chest pain, or shortness of breath. Telemetry reviewed personally, sinus rhythm, occasional bradycardia overnight upper 40s, low 50s while sleeping, brief asymptomatic SVT, heart rate in the 130s. No clear atrial fibrillation or atrial flutter. Orthostatics done last night. Lying systolic blood pressure 150, standing systolic blood pressure 128 mmHg. OBJECTIVE: VITAL SIGNS: Temperature 97.8 degrees Fahrenheit, pulse 83, respiratory rate 16, and blood pressure 128/84. The patient is saturating 96% on room air. The patient weighs 48.6 kg. He is 67 inches tall. GENERAL: The patient is a pleasant, thin male, in no apparent distress. Alert and oriented x3. HEENT: Head, atraumatic and normocephalic. Eyes, sclerae anicteric. NECK: Supple. Normal range of motion. No JVD. CARDIAC: Regular rate and rhythm. Normal S1 and S2. No appreciable murmurs, clicks, or rubs. LUNGS: Clear to auscultation bilaterally. Diminished breath sounds at bases. No rales or wheezes. ABDOMEN: Soft, nontender, and nondistended. Positive bowel sounds throughout. EXTREMITIES: No edema, clubbing, or cyanosis. Extremities warm and well perfused. NEURO: Nonfocal neuro exam. PSYCHIATRIC: Mood calm and appropriate. SKIN: Warm and dry without ecchymosis, rash, or petechiae. LABORATORY DATA: TSH 1.10, this is from 12/25/2022. Sodium 138, potassium 4.0, chloride 103, bicarb 36, and glucose 82. White blood cell count 6.0, hemoglobin 14.5, hematocrit 45.9, and platelet count 263. Telemetry sinus rhythm. Occasional PVCs. Brief SVT in 130s. No prolonged pauses or high-grade AV blocks. Further review of medical records is not possible as [facility] is inaccessible. IMPRESSION: 1. Unexplained syncope. 2. Hypertension. 3. Unintentional weight loss. 4. History of nonsustained ventricular tachycardia. 5. Tobacco abuse. 6. Ascending aortic aneurysm. PLAN OF CARE: 1. With regard to hypertension, consider alternative antihypertensive regimen for simplification, such as angiotensin receptor james low dose. 2. May hold beta-james for now given concern for bradycardia at admission as etiology of syncope remains unknown secondary to tachy, but more likely bradyarrhythmia and pathologic pause. 3. Orthostatic hypotension evident by vital signs. Advised the patient to remain hydrated, rise to floor from a seated position. Avoid falls and injuries. He was also counseled to wear compression stockings. 4. Beta blockers will be advised given his ascending aortic aneurysm. However, he has been instructed to obtain a 30-day potline monitor upon discharge for further evaluation of tachy and marlen arrhythmias contribution to syncopal episodes. I have also advised loop recorder implantation if this remains unrevealing. The patient follows with Dr. Morris and will contact his office immediately upon discharge to schedule followup. Further management per his office. 5. Discontinue hydralazine in favor of losartan. 6. Smoking cessation counseling. 7. The patient is stable for discharge from cardiac perspective. Given recurrent significant symptoms and/or syncope, return to the ER or contact Dr. Morris's office for further evaluation. We have been following this patient on behalf of Dr. Morris as he is out of town and unavailable. D I MT: Sidney
== END 2022-12-26 19:00 | disposition home or self-care (01) ==
LOC: ANHED 14:29 → ANH3MEDSUR 16:59
PROVIDERS: Physician Assistant; Admitting Provider Hospitalist; Emergency Provider Emergency Medicine; PCP Internal Medicine; Visit Provider Chiropractor
DX: R55 Syncope and collapse (principal); J44.9 Chronic obstructive pulmonary disease, unspecified; I71.21 Aneurysm of the ascending aorta, without rupture; I11.9 Hypertensive heart disease without heart failure; R06.02 Shortness of breath; I47.29 Other ventricular tachycardia; I48.0 Paroxysmal atrial fibrillation; R00.1 Bradycardia, unspecified; I07.1 Rheumatic tricuspid insufficiency; I27.20 Pulmonary hypertension, unspecified; R63.4 Abnormal weight loss; Z68.1 Body mass index [BMI] 19.9 or less, adult; F17.210 Nicotine dependence, cigarettes, uncomplicated; Z86.73 Personal history of transient ischemic attack (TIA), and cerebral infarction without residual deficits; Z79.82 Long term (current) use of aspirin; Z79.899 Other long term (current) drug therapy
CPT/HCPCS: 36415; 71046; 80048; 80053; 83735; 84443; 84484; 85025; 93005; 93306; 93880; 99285; A9270; G0378

== ENCOUNTER 2023-03-06 13:34 | Outpatient (CLI) | payer MEDICARE, SELFPAY ==
--- NOTE | ~2023-03-06 | CT_ITS ---
EXAMINATION: CT lung screening DATE: 03/06/2023 13:48 INDICATION: Z87.891 - Personal history of nicotine dependence TECHNIQUE: Computed tomography (CT) of the chest was performed without intravenous contrast. Addition al 3D reconstructions utilizing coronal maximum intensity projection (MIP) were performed. Automated exposure control and iterative reconstruction technique were employed. The dose-length product was 12 0.68 mGy-cm. COMPARISON: 05/07/2022 FINDINGS: Mild to moderate emphysema with biapical pleural-parenchymal scarring, right greater than left. There is a new region of tree-in-bud opacity in the right middle lobe which includes several <4 mm nodules . The tree-in-bud configuration favors an infectious or inflammatory etiology with endobronchial spre ad. There are few calcified nodules in the left upper and bilateral lower lobes which along with calc ified right hilar lymph nodes and a few splenic calcifications are consistent with old granulomatous disease. Heart size is normal. No pericardial effusion. No interval change in a sinus of Valsalva ane urysm which measures up to 4.6 cm on the current study. More distal aorta is normal in caliber. No pa thologically enlarged thoracic lymphadenopathy. 4.5 cm cyst at the upper pole the left kidney. 3 cm low-attenuation mass in the right hepatic lobe which can be seen dating back to 2020 and with hyperen hancement on the prior contrast enhanced study most consistent with either a hemangioma or focal nodu lar hyperplasia. Mild thoracic spondylosis. IMPRESSION: 1. Lung-RADS category 2: Benign appearance or behavior. Continue annual screening with noncontrast lo w-dose chest CT in 12 months. Reviewed, dictated and finalized at location A. IMPRESSION: 1. Lung-RADS category 2: Benign appearance or behavior. Continue annual screeni ng with noncontrast low-dose chest CT in 12 months.
== END 2023-03-06 13:35 | disposition home or self-care (01) ==
PROVIDERS: PCP Internal Medicine; Visit Provider Physician Assistant
DX: Z12.31 Encounter for screening mammogram for malignant neoplasm of breast (principal); R92.8 Other abnormal and inconclusive findings on diagnostic imaging of breast; Z87.891 Personal history of nicotine dependence
CPT/HCPCS: 71271

== ENCOUNTER 2023-04-19 15:24 | Outpatient (CLI) | payer MEDICARE, SELFPAY ==
--- NOTE | ~2023-04-19 | CT_ITS ---
EXAMINATION: CTA chest DATE: 04/19/2023 15:48 INDICATION: Aneurysm of ascending aorta without rupture. TECHNIQUE: Computed tomographic angiography (CTA) of the chest was performed with 100 mL Omnipaque-35 0 intravenous contrast. Automated exposure control and iterative reconstruction technique were employ ed. The dose-length product was 227.28 mGy-cm. Maximum intensity projection 3D-reconstructions of the aorta and other arteries were constructed by the technologist on a separate workstation. COMPARISON: Chest CT 03/06/2023, CTA 05/07/22, CT abdomen and pelvis 03/22/2022 FINDINGS: There is moderate emphysema. There is mild scarring at the lung apices. Calcified bilateral lung nodules and calcified hilar lymph nodes are consistent with old granulomatous disease. No pleur al effusion. The heart size is normal. No pericardial effusion. Again seen is a 3.4 cm hemangioma in the liver. There is a 4.8 cm cyst in left kidney. The aorta measures 4.6 cm at the sinuses of Valsalv a, 3.8 cm at the sinotubular junction, 3.7 cm in the mid ascending aorta, 2.9 cm at the aortic isthmu s, and 3.0 cm in the mid descending aorta. There is moderate thoracic spondylosis. IMPRESSION: 1. Ectasia of ascending aorta measuring up to 4.6 cm at the sinuses of Valsalva. Reviewed, dictated and finalized at location E. IMPRESSION: 1. Ectasia of ascending aorta measuring up to 4.6 cm at the sinuses of Valsalva .
[2023-04-19 15:41] LABS: Estimated Glomerular Filt Rate > 60
== END 2023-04-19 15:25 | disposition home or self-care (01) ==
LOC: ANHIMG 15:26
PROVIDERS: PCP Internal Medicine; Visit Provider Internal Medicine Cardiovascular Disease
DX: I71.21 Aneurysm of the ascending aorta, without rupture (principal)
CPT/HCPCS: 71275; Q9967

== ENCOUNTER 2023-08-06 06:47 | Emergency (ER) | payer MEDICARE, SELFPAY ==
[2023-08-06] VITALS (10 sets, daily range): BP systolic 135–154; BP diastolic 68–89; PULSE 59–67; RESP 15–21; TEMP 36.3; O2SAT 97–100
--- NOTE | ~2023-08-06 | XR_ITS ---
Clinical Indication: Chest pain PA and lateral views of the chest: Comparison: 12/24/2022 Findings: Stable calcified right basilar granuloma. The lungs are otherwise clear, without evidence o f focal consolidation or pleural effusion. Cardiomediastinal silhouette is within normal limits. Bon es and soft tissues are unremarkable. Impression: Possible COPD. No acute pulmonary abnormality seen. Reviewed, dictated and finalized at location M. SERVICING RIG OPERATOR Impression: Possible COPD. No acute pulmonary abnormality seen.
--- NOTE | ~2023-08-06 | US_ITS ---
US abdomen limited INDICATION: PROCEDURE: Realtime right upper abdominal ultrasound. COMPARISON: No prior studies for comparison. FINDINGS: The pancreas is normal without focal mass or pancreatic ductal dilation. There are multipl e echogenic masses of the liver, largest measuring 3.56 x 2.1 x 1.9 cm, suspicious for metastatic dis ease. There is normal directional flow in the portal vein. The gallbladder is normal without stones, gallbladder wall thickening or pericholecystic fluid. Comm on bile duct measures 5 mm. No sonographic Milian's sign. IMPRESSION: 1: Multiple echogenic masses of the liver measuring up to 3.5 cm, suspicious for metastatic disease. Correlate for history of malignancy. Recommend correlation with dynamic contrast-enhanced CT or MRI o f the abdomen. Reviewed, dictated and finalized at location L. T POTATO DISINTEGRATOR IMPRESSION: 1: Multiple echogenic masses of the liver measuring up to 3.5 cm, suspicious fo r metastatic disease. Correlate for history of malignancy. Recommend correlatio n with dynamic contrast-enhanced CT or MRI of the abdomen.
--- NOTE | 2023-08-06 06:51 | ECG_ITS ---
Measurements Intervals [place] Rate: 64 P: 79 NV: 173 QRS: 76 QRSD: 93 T: 76 QT: 403 QTc: 419 Interpretive Statements SINUS RHYTHM BORDERLINE T WAVE ABNORMALITY- ANTERIOR LEADS BORDERLINE ECG COMPARED TO ECG 12/24/2022 10:18:25 SINUS RHYTHM NOW PRESENT Electronically Signed On 08-06-2023 6:56:[address] PA[address] HELPER by Jerald Morris D.O.
[2023-08-06 07:10] LABS: Basophils Absolute Auto 0.1 K/mm3 (0.0-0.1); Basophils Percent Auto 0.8 % (0.2-1.2); Eosinophils Absolute Auto 0.4 K/mm3 (0-0.3); Eosinophils Percent Auto 5.8 % (0-4.4); Hematocrit 43.8 % (42.0-52.0); Hemoglobin 13.8 g/dL (14.0-18.0); Immature Granulocyte Absolute 0.02 K/mm3 (0.00-0.031); Immature Granulocyte Percent A 0.3 % (0-0.5); Lymphocytes Absolute Auto 1.86 K/mm3 (0.9-3.2); Lymphocytes Percent Auto 26.3 % (18.3-44.2); Mean Corpuscular HGB Conc 31.5 g/dl (32-36); Mean Corpuscular Hemoglobin 29.3 pg (26-34); Mean Platelet Volume 10.4 fl (7.4-10.4); Monocytes Absolute Auto 0.6 K/mm3 (0.1-0.6); Monocytes Percent Auto 8.6 % (2.6-8.5); Neutrophils Absolute Auto 4.1 K/mm3 (1.3-6.7); Neutrophils Percent Auto 58.2 % (45.5-73.1); Platelet Count Result 239 k/mm3 (150-375); Red Blood Count 4.71 M/mm3 (4.6-6.20); Red Cell Distribution Width 13.6 % (11.5-14.5); White Blood Count 7.1 K/mm3 (4.5-10.0)
[2023-08-06] MEDS: ASPIRIN 81 MG CHEWABLE TABLET 324 MG PO (07:21)
[2023-08-06 07:23] LABS: Prothrombin Time 13.5 Seconds (11.1-14.7)
[2023-08-06 07:24] LABS: Partial Thromboplastin Time 29.8 SECONDS (22.3-36.8)
[2023-08-06 07:25] LABS: Alanine Aminotransferase 13 U/L (6-50); Alkaline Phosphatase 60 U/L (38-126); Anion Gap 4 mmol/L (8-16); Aspartate Amino Transferase 24 U/L (17-59); Bilirubin,Total 0.6 mg/dL (0.2-1.3); Blood Urea Nitrogen 19 mg/dL (9-20); Calcium 9.2 mg/dL (8.4-10.2); Carbon Dioxide 32 mmol/L (22-30); Chloride 103 mmol/L (98-107); Estimated CRCL calculation 62 ml/min; Estimated Glomerular Filt Rate > 60; Glucose 86 mg/dL (65-110); Lipase 43 U/L (23-300); Potassium 3.7 mmol/L (3.4-5.0); Sodium 139 mmol/L (137-145)
[2023-08-06 07:37] LABS: Troponin I < 0.012 ng/mL (0.000-0.034)
--- NOTE | 2023-08-06 08:24 | ED.CHESTPAIN ---
HPI - Chest Pain General Chief Complaint: Chest Pain Stated Complaint: R sided chest pain Time Seen by Provider: 08/06/23 07:09 History of Present Illness HPI narrative: 73-year-old male presenting to the emergency department for evaluation of right upper quadrant pain. Patient states he is having no pain yesterday but began having the pain this morning approximately 5:00 a.m.. Patient states the pain is short lasting sharp and does not radiate. Patient denies any associated chest pain or shortness of breath. Patient denies any associated nausea vomiting diarrhea or constipation. Patient has no prior history of kidney stones and has no prior history of gallbladder disease. Patient denies any history of coronary artery disease and does follow-up with Cardiology, Dr. Morris for proximal AFib. Patient declined any medications for pain control Related Data Home Medications Medication Instructions Recorded Confirmed kuthftd-ibhfthexcaopk-oypfbfod 250 1 tablet PO Q4-6H PRN Headache 12/24/22 06/12/23 mg-250 mg-65 mg tablet (Excedrin Extra Strength) Allergies Allergy/AdvReac Type Severity Reaction Status Date / Time No Known Allergies Allergy Unknown Verified 08/06/23 07:16 Review of Systems Review of Systems: All systems reviewed & are unremarkable except as noted in HPI and below PMFSH Past Medical History Medical History Ascending aortic aneurysm Chronic obstructive pulmonary disease Migraine Nicotine dependence Pulmonary nodule Transient ischemic attack Surgical History Surgical History History of bilateral inguinal hernia repair History of colonoscopy History of inguinal hernia repair History of neck surgery Family History Family History Mother Patient's mother is Family history of congestive heart failure Diabetes mellitus Father Patient's father is Family history of pancreatic cancer Grandparent Diabetes mellitus Social History Social History Social History: Surrogate medical decision maker: Ciara Robert, spouse. Code status: Full code. Smoking packs per day: 1.5 Smoking cigarettes per day: 30.0 Years smoked: 56 Smoking pack-years: 84.00 Smoking status: Current every day smoker Tobacco type: cigarettes Alcohol intake: never Substance use: never Substance use type: does not use Lack of Transportation: No Lack of Food: Never True Current Housing: I Have Housing Concerned About Future Housing: No Difficulty Paying Gas/Electric Bills: No Difficulty Paying for Meds: No Currently Unemployed: No Education: Associate Degree Difficulty w/ Childcare or Family Care: No Additional living arrangements comments: Lives with spouse in [place]. Additional occupation/education comments: Retired. Spiritual care concerns: No Exam Narrative: APPEARANCE: Well appearing, no pain, no distress, well-nourished. HEAD: normocephalic, atraumatic. EYES: PERRLA/EOMI, conjunctivae clear. NOSE: Normal no drainage NECK: Supple. No adenopathy, no masses. RESPIRATORY: Airway patent, respirations nonlabored. Clear to auscultation bilaterally, no rales, rhonchi, wheezing. CARDIOVASCULAR: Regular rate and rhythm without murmurs rubs or gallops. ABDOMINAL: Right upper quadrant tenderness to palpation, no rib tenderness to palpation, MUSCULOSKELETAL: Moves all extremities. Strength/ROM intact, No edema, No calf tenderness. NEURO: Alert. Cranial nerves II through XII intact. Grossly intact SKIN: No overlying rash or urine Course Course Emergency Course: 73-year-old male present to the emergency department for evaluation of right-sided right upper quadrant pain. Ultrasound was negative for acute cholecystitis but did show meera
[2023-08-06 09:36] LABS: Appearance Urine Clear (Clear); Bilirubin Urine Negative (Negative); Blood Urine Negative (Negative); Color Urine Yellow (Yellow); Glucose Urine UA Negative (Negative); Ketones Urine Negative (Negative); Leukocyte Esterase Ur Negative LEU/UL (Negative); Nitrate Urine Negative (Negative); Protein Urine Negative (Negative); Specific Grav Ur 1.024 (1.001-1.035); Urobilinogen Urine 0.2 mg/dL (<2.0); pH Urine 5.5 (5.0-9.0)
[2023-08-06 09:43] LABS: Add Urine Microscopic? NO
--- NOTE | 2023-08-06 09:59 | ECG_ITS ---
Measurements Intervals [place] Rate: 55 P: 74 NH: 178 QRS: 68 QRSD: 87 T: 54 QT: 419 QTc: 403 Interpretive Statements SINUS BRADYCARDIA WITH SINUS ARRHYTHMIA BASELINE ARTIFACT- I, II, III, AVR, AVL, AVF, V4-V6 BORDERLINE ECG COMPARED TO ECG 08/06/2023 06:55:03 SINUS BRADYCARDIA NOW PRESENT SINUS ARRHYTHMIA NOW PRESENT Electronically Signed On 08-06-2023 10:08:46 INTERNATIONAL PROJECT MANAGER by Jerald Morris D.O.
[2023-08-06 10:19] LABS: Troponin I < 0.012 ng/mL (0.000-0.034)
--- NOTE | 2023-08-06 10:58 | PC.NURSE ---
Report given to Arlene BUNCH, all questions answered
== END 2023-08-06 11:10 | disposition home or self-care (01) ==
PROVIDERS: Emergency Medicine; Emergency Provider Emergency Medicine; PCP Internal Medicine
DX: R10.11 Right upper quadrant pain (principal); J44.9 Chronic obstructive pulmonary disease, unspecified; I71.21 Aneurysm of the ascending aorta, without rupture; Z86.73 Personal history of transient ischemic attack (TIA), and cerebral infarction without residual deficits; F17.210 Nicotine dependence, cigarettes, uncomplicated; R00.1 Bradycardia, unspecified; R22.0 Localized swelling, mass and lump, head
CPT/HCPCS: 36415; 71046; 76705; 80053; 81003; 83690; 84484; 85025; 85610; 85730; 93005; 99284; A9270

== ENCOUNTER 2023-08-15 06:34 | Outpatient (CLI) | payer MEDICARE, SELFPAY ==
--- NOTE | ~2023-08-15 | CT_ITS ---
CT of the Abdomen and Pelvis: Indication: Hepatomegaly Technique: 2.5 mm axial scans were obtained through the abdomen and pelvis prior to and following in travenous administration of 100 cc of Omnipaque 350. Dose reduction technique was used on this scan b y utilizing automated exposure control and iterative reconstruction technique. The dose-length produc t (DLP) was 433.92 mGy-cm. COMPARISON: 03/22/2022 Findings: Scans through the lung bases are unremarkable. There is a 4 cm cm subtle hypodense hepatic mass which demonstrate discontinuous nodular peripheral e nhancement on postcontrast images, with progressive fill in, most compatible with hemangioma. The spl een, pancreas, gallbladder, adrenals and kidneys are within normal limits. No evidence of aortic ane urysm. No lymphadenopathy. No bowel obstruction or bowel wall thickening. There is no evidence to suggest acute appendicitis. Images through the pelvis were performed. Urinary bladder unremarkable. Prostate gland enlarged. No a scites. Impression: Hepatic hemangioma, as detailed above. Reviewed, dictated and finalized at location . HOST OR HOSTESS Impression: Hepatic hemangioma, as detailed above.
== END 2023-08-15 06:35 | disposition home or self-care (01) ==
PROVIDERS: PCP Internal Medicine; Visit Provider Internal Medicine
DX: R16.0 Hepatomegaly, not elsewhere classified (principal)
CPT/HCPCS: 74178; Q9967

== ENCOUNTER 2024-03-24 13:30 | Outpatient (CLI) | payer MEDICARE, SELFPAY ==
--- NOTE | ~2024-03-24 | CT_ITS ---
CT Scan of the Chest without Contrast: Clinical Indication: Lung cancer screening, nicotine dependence Technique: Contiguous sections were acquired throughout the chest without intravenous contrast. Dose reduction technique was used on this scan by utilizing automated exposure control and iterative recon struction technique. The dose-length product (DLP) was 72.33 mGy-cm. COMPARISON: 04/19/2023 Findings: There is no evidence of any significant mediastinal, hilar or axillary lymphadenopathy. The mediastin al soft tissues appear normal. There is no evidence of pleural or pericardial effusion. There is bilateral upper lobe emphysema and right apical scarring. Calcified right lower lobe granulo ma present. Images through the upper abdomen reveal no abnormalities. Impression: Lung RADS 2: Benign appearance. [address] advised. Reviewed, dictated and finalized at location . Impression: Lung RADS 2: Benign appearance. [address] advised.
== END 2024-03-24 13:31 | disposition home or self-care (01) ==
PROVIDERS: PCP Internal Medicine; Visit Provider Nurse Practitioner Family
DX: Z12.2 Encounter for screening for malignant neoplasm of respiratory organs (principal); F17.210 Nicotine dependence, cigarettes, uncomplicated
CPT/HCPCS: 71271

== ENCOUNTER 2024-06-02 12:37 | Outpatient (CLI) | payer MEDICARE, SELFPAY ==
--- NOTE | ~2024-06-02 | CT_ITS ---
EXAMINATION: CTA chest DATE: 06/02/2024 13:12 INDICATION: Aneurysm of ascending aorta without rupture. TECHNIQUE: Computed tomographic angiography (CTA) of the chest was performed with 100 mL Omnipaque-35 0 intravenous contrast. Automated exposure control and iterative reconstruction technique were employ ed. The dose-length product was 216.11 mGy-cm. Maximum intensity projection 3D-reconstructions of the aorta and other arteries were constructed by the technologist on a separate workstation. COMPARISON: Chest CT 03/24/2024, 04/19/2023 FINDINGS: There is moderate emphysema. There is mild scarring at the lung apices. A calcified right l radha nodule and calcified right hilar lymph nodes are consistent with old granulomatous disease. No pl eural effusion. The heart size is normal. No pericardial effusion. There is no pulmonary embolus. The re is a 3.1 cm mass in right hepatic lobe with peripheral puddling of contrast, consistent with a hem angioma. Calcifications in the spleen are consistent with old granulomatous disease. There are cysts in the kidneys measuring up to 5.1 cm on the left. The aorta measures 4.6 cm at the sinuses of Valsa lva, 3.6 cm at the sinotubular junction, 3.7 cm in the mid aorta, 3.2 cm at the aortic isthmus, and 3 .2 cm in the mid descending aorta. There is mild thoracic spondylosis. IMPRESSION: 1. Aortic ectasia measuring 4.6 cm at the sinuses of Valsalva, stable from 04/19/2023. Reviewed, dictated and finalized at location A. BER HAND IMPRESSION: 1. Aortic ectasia measuring 4.6 cm at the sinuses of Valsalva, stable from 04/19.
[2024-06-02 12:58] LABS: Estimated Glomerular Filt Rate > 60
== END 2024-06-02 12:38 | disposition home or self-care (01) ==
LOC: MICIMG 12:38
PROVIDERS: PCP Internal Medicine; Visit Provider Internal Medicine Cardiovascular Disease
DX: I71.21 Aneurysm of the ascending aorta, without rupture (principal)
CPT/HCPCS: 71275; Q9967

== ENCOUNTER 2024-08-27 11:41 | Emergency (ER) | payer MEDICARE, SELFPAY ==
--- NOTE | ~2024-08-27 | CT_ITS ---
EXAMINATION: CTA BRAIN/CAROTID DATE: 08/27/2024 16:28 INDICATION: Headache with neuropathy TECHNIQUE: Computed tomographic angiography (CTA) of the head and neck was performed with 100 mL Omni paque-350 intravenous contrast. Multiplanar reconstructions and maximum intensity projection 3D-recon structions of the carotid arteries and of the intracranial arteries were created by the technologist on a separate workstation. Precontrast CT of the head was also obtained. Automated exposure control and iterative reconstruction technique were employed.The dose-length product was 1639.27 mGy-cm. COMPARISON: Head CT dated 10/11/[address] dated 06/02/2024 FINDINGS: Carotid arteries: Thoracic aorta is normal in caliber with small amount of nonhemodynamically significant atherosclerot ic plaque including some ulcerated plaque but no dissection. There is 0% stenosis of the right and le ft carotid bulbs relative to normal distal artery lumen diameter (NASCET criteria). The cervical port ion of the right internal carotid artery is tortuous. No interval change since 05/06 and mild medias tinal lymphadenopathy. There are calcified AP window lymph nodes consistent with old granulomatous di sease. Moderate paraseptal and upper lungs. Head: No acute intracranial hemorrhage, acute infarction or abnormal extra axial fluid collection. There is mild scattered white matter hypoattenuation consistent with chronic small vessel ischemic disease. Ventricles are normal and symmetric. No mass/mass effect. No abnormally enhancing brain lesions. The orbits, paranasal sinuses and mastoid air cells are normal. Intracranial arteries There is no hemodynamically significant stenosis in the vertebral, basilar and internal carotid arter ies. Vertebral arteries are codominant. There are no aneurysms identified. Both A1 and P1 segments a re patent. Cerebral arterial arborization appears symmetric. IMPRESSION: 1. 0% stenosis of the right and left carotid bulbs relative to normal distal artery lumen diameter (N ASCET criteria). 2. Normal aging brain. No acute intracranial process or abnormally enhancing brain lesions. 3. Unremarkable cerebral CT angiogram with no thrombosis, hemodynamically significant stenosis or ane urysm. Reviewed, dictated and finalized at location A. WORKER GENERAL IMPRESSION: 1. 0% stenosis of the right and left carotid bulbs relative to normal distal ar jalen lumen diameter (NASCET criteria). 2. Normal aging brain. No acute intracranial process or abnormally enhancing br ain lesions. 3. Unremarkable cerebral CT angiogram with no thrombosis, hemodynamically signi ficant stenosis or aneurysm.
--- OUTSIDE RECORDS SUMMARY | 2024-08-27 11:44 | XMS_ITS | Clinical Summary ---
Author Organization [facility] Address [address] [place] [address] Care Team Providers Care Molder Name Role Phone Jorge Sin MD Primary Care Provider [phone] Allergies No known active allergies Medications albuterol sulfate HFA 108 (90 Base) MCG/ACT inhaler Inhale 2 puffs into the lungs every 6 (six) hours as needed for Wheezing. 1 Inhaler 07/29/2020 Active Social History Tobacco Use Types Packs/Day Years Used Date Smoking Tobacco: Every Day Cigarettes 1 50 Smokeless Tobacco: Never Tobacco Cessation:Ready to Q uit: No; Counseling Given: Yes Alcohol Use Standard Drinks/Week Comments Never 0 (1 standard drink = 0.6 oz pur e alcohol) AUDIT-C Answer Date Recorded Q1: How often do you have a drink containing alc ohol? Never 07/29/2020 Average Number of Drinks Not on file 021 Frequency of Binge Drinking Not on file 07/15 Sex and Gender Information Value Date Recorded Sex Assigned at Not on file Legal Sex Male 5:32 PM CDT Gender Identity Not on file Sexual Orientation Not on file Last Filed Vital Signs Vital Sign Reading Time Taken Comments Blood Pressure 130/83 07/29/2020 11:06 AM KAPOK MACHINE OPERATOR Pulse 58 07/29/2020 11:09 AM KAPOK MACHINE OPERATOR Temperature 36.9 C (98.5 F) 07/29/2020 9:47 AM KAPOK MACHINE OPERATOR Respiratory Rate 21 07/29/2020 11:09 AM KAPOK MACHINE OPERATOR Oxygen Saturation 96% 07/29/2020 11:09 AM KAPOK MACHINE OPERATOR Inhaled Oxygen Concentration - - Weight 63.5 kg (140 lb) 07/29/2020 9:47 AM KAPOK MACHINE OPERATOR Height 171.5 cm (5' 7.5 ) 07/29/2020 9:47 AM KAPOK MACHINE OPERATOR Body Mass Index 21.6 07/29/2020 9:47 AM KAPOK MACHINE OPERATOR Plan of Treatment Health Maintenance Due Date Last Done Comments Colorectal Cancer Screening Colonoscopy (10 Years) 1950 Pneumococcal Vaccine: 65+ Ye ars (1 of 2 - PCV) 1956 Hepatitis C 1968 DTaP, Tdap and Td Vaccines ( 1 - Tdap) 1969 Zoster Vaccines (1 of 2) 2000 Annual Medicare Wellness Visit 2015 COVID-19 Vaccine (1 - 2023-2 5 season) 2024 Influenza Adult (#1) 2024 RSV Immunization or 60+ Years (1 - 1-dose 75+ series) 2025 Meningococcal B Vaccine Aged Out No l onger eligible based on patient's age to complete this topic Meningococcal Vaccine Aged Out No jacoby ean eligible based on patient's age to complete this topic RSV Immunizations Under 20 Months Aged Out No longer eligible based on patient's age to complete this topic Insurance Care Teams Molder Relationship Specialty Start Date End Date Jorge Sin MD [address] [place] [address] PCP - General INTERNAL MEDICINE 03/24/19
--- OUTSIDE RECORDS SUMMARY | 2024-08-27 11:44 | XMS_ITS | Continuity of Care Document ---
Author Organization [facility] Address [address] [place] [address] Phone Care Team Providers Care Sandal Parts Assembler Name Role Phone Doisy, Edward Unavailable Unavailable Advance Directives Directive Yes / No Effective Date File Name No Information Encounters Encounter Description Practice Location Reason(s) For Visit Diagnoses Date Provider Providers Copied on Encounter [facility], [address], [place], [place], [id number], [place] tel:[phone] [address] [facility] [place] No Information Sep-1 8-200 0 Doisy Edward. [address] [place] , [address], [place], [address], [place]. tel:[phone] Family History Family Member Type Diagnosis Age At Onset No Information Payers Payer name Insurance type Covered republican ID Authoriza tion(s) [employer] [id number] Social History Type Description Quantity Date Captured [...]
--- OUTSIDE RECORDS SUMMARY | 2024-08-27 11:45 | XMS_ITS | Clinical Summary ---
Author Organization [facility] [address] Address [address] [place] [address] Care Team Providers Care Middle [employer] Sports Coach Name Role Phone Jorge Sin MD Primary Care Provider [phone] Allergies No known active allergies Medications metoprolol gandhi-hydrochloroth iaz 100-12.5 mg tablet extended release 24 hr Take 12 mg by mouth daily Active losartan (COZAAR) 50 mg tablet Take 1 tablet (50 mg total) by mouth daily Active Active Problems Problem Noted Date Diagnosed Date Epistaxis 04/01/2023 Deviated nasal septum 04/01/2023 Cervicalgia 08/30/2011 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 Castañeda (Added by TW Conv) HERNIA REPAIR 07/15/2021 - 07/14/2022 Bilateral Medical History Medical History Date Comments Cervicalgia Neck pain - (Add ed by TW Conv) Family History Medical History Relation Name Comments Cancer Other Cancer - (Added by TW Conv) Diabetes Other Diabetes Mellit us - (Added by TW Conv) Heart disease Other Heart Disease - (Added by TW Conv) Hypertension Other Hypertension - (Added by TW Conv) Relation Name Status Comments Other Social History Tobacco Use Types Packs/Day Years Used Date Smoking Tobacco: Every Day Cigarettes Tobacco Cessation:Ready to Q uit: Not Asked; Counseling Given: Not Answered Sex and Gender Information Value Date Recorded Sex Assigned at Not on file Legal Sex Male 9:17 AM SHIP'S SURVEYOR Gender Identity Not on file Sexual Orientation Not on file Obstetrics History Last Filed Vital Signs Vital Sign Reading Time Taken Comments Blood Pressure 119/73 07/31/2012 10:19 AM SHIP'S SURVEYOR Pulse 75 07/31/2012 10:19 AM SHIP'S SURVEYOR Temperature - - Respiratory Rate 18 04/01/2023 9:32 AM CDT Oxygen Saturation 96% 07/31/2012 10:19 AM SHIP'S SURVEYOR Inhaled Oxygen Concentration - - Weight 56.7 kg (125 lb) 04/01/2023 9:32 AM CDT Height 170.2 cm (5' 7 ) 04/01/2023 9:32 AM CDT Body Mass Index 19.58 04/01/2023 9:32 AM CDT Plan of Treatment Health Maintenance Due Date Last Done Comments Colon Cancer Screening-Colonoscopy 1950 Depression Screening 1950 Fall Risk Assessment 1950 Hepatitis C Screening 1950 Pneumococcal vaccine 65+ (1 of 2 - PCV) 1956 DTaP/Tdap/Td Vaccine (1 - Tdap) 1961 Hepatitis B Screening 1968 Zoster Vaccine (1 of 2) 2000 Abdominal Aortic Aneurysm (AAA) Screen 2015 Well Visit 65+ 2015 Influenza Vaccine (#1) 2024 Insurance [facility]IC[facility] Address: [address] [address] [facility] Address: [facility] [address] [place] [address] Care Teams Middle School Sports Coach Relationship Specialty Start Date End Date Jorge Sin MD [address] [facility] [address] [place] [address] PCP - General Internal Medicine 12/24/22
--- OUTSIDE RECORDS SUMMARY | 2024-08-27 11:45 | XMS_ITS | Referral Summary ---
Author Organization [facility] [address] Address [address] [place] [address] Care Team Providers Care Blood Donor Recruiter Name Role Phone Jorge Sin MD Primary Care Provider [phone]- [phone] Allergies No known active allergies Medications metoprolol gandhi-hydrochloroth iaz 100-12.5 mg tablet extended release 24 hr Take 12 mg by mouth daily Active losartan (COZAAR) 50 mg tablet Take 1 tablet (50 mg total) by mouth daily Active Active Problems Problem Noted Date Diagnosed Date Epistaxis 04/01/2023 Deviated nasal septum 04/01/2023 Cervicalgia 08/30/2011 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 Social History Tobacco Use Types Packs/Day Years Used Date Smoking Tobacco: Every Day Cigarettes Tobacco Cessation:Ready to Q uit: Not Asked; Counseling Given: Not Answered Sex and Gender Information Value Date Recorded Sex Assigned at Not on file Legal Sex Male 9:17 AM AUTOGRAPHER Gender Identity Not on file Sexual Orientation Not on file Last Filed Vital Signs Vital Sign Reading Time Taken Comments Blood Pressure 119/73 07/31/2012 10:19 AM AUTOGRAPHER Pulse 75 07/31/2012 10:19 AM AUTOGRAPHER Temperature - - Respiratory Rate 18 04/01/2023 9:32 AM CDT Oxygen Saturation 96% 07/31/2012 10:19 AM AUTOGRAPHER Inhaled Oxygen Concentration - - Weight 56.7 kg (125 lb) 04/01/2023 9:32 AM CDT Height 170.2 cm (5' 7 ) 04/01/2023 9:32 AM CDT Body Mass Index 19.58 04/01/2023 9:32 AM CDT Plan of Treatment Not on file Insurance MEDICARE SOLUTIONS Member Subscriber Plan / Payer (Ef fective 2022-Present) Name:Luis Felipe Robert Erica Relation to Subscriber:Self Name:Luis Felipe Robert Erica Payer ID:[id number] (NAIC) Type:[facility] MEDIC[facility] Address: [place] [phone] MEDICARE SOLUTIONS Care Teams Blood Donor Recruiter Relationship Specialty Start Date End Date Jorge Sin MD [address] [facility] [address] [place] [address] PCP - General Internal Medicine 12/24/22
[2024-08-27 11:47] VITALS: BP 183/83; PULSE 65; RESP 16; TEMP 36.4; O2SAT 98
[2024-08-27 14:29] VITALS: BP 188/96; PULSE 56; RESP 17; O2SAT 99
--- OUTSIDE RECORDS SUMMARY | 2024-08-27 14:53 | XMS_ITS | Clinical Summary ---
Author Organization [facility] Address [address] [place] [address] Care Team Providers Care Manager Oracle Database Name Role Phone Jorge Sin MD Primary Care Provider [phone] Allergies No known active allergies Medications albuterol [...] Comments Blood Pressure 130/83 07/29/2020 11:06 AM TELECOM FIELD TECHNICIAN Pulse 58 07/29/2020 11:09 AM TELECOM FIELD TECHNICIAN Temperature 36.9 C (98.5 F) 07/29/2020 9:47 AM TELECOM FIELD TECHNICIAN Respiratory Rate 21 07/29/2020 11:09 AM TELECOM FIELD TECHNICIAN Oxygen Saturation 96% 07/29/2020 11:09 AM TELECOM FIELD TECHNICIAN Inhaled Oxygen Concentration - - Weight 63.5 kg (140 lb) 07/29/2020 9:47 AM TELECOM FIELD TECHNICIAN Height 171.5 cm (5' 7.5 ) 07/29/2020 9:47 AM TELECOM FIELD TECHNICIAN Body Mass Index 21.6 07/29/2020 9:47 AM TELECOM FIELD TECHNICIAN Plan of Treatment Health Maintenance Due Date [...] to complete this topic Insurance Care Teams Manager Oracle Database Relationship Specialty Start Date End Date Jorge Sin MD [address] [place] [address] PCP - General INTERNAL MEDICINE 03/24/19
--- OUTSIDE RECORDS SUMMARY | 2024-08-27 14:53 | XMS_ITS | Referral Summary ---
Author Organization [facility] [address] Address [address] [place] [address] Care Team Providers Care Squad Sergeant Name Role Phone Jorge Sin MD Primary Care Provider [phone]- [phone] Allergies No known active allergies Medications metoprolol [...] on file Legal Sex Male 9:17 AM TENSIONING MACHINE OPERATOR Gender Identity Not on file Sexual Orientation Not on file Last Filed Vital Signs Vital Sign Reading Time Taken Comments Blood Pressure 119/73 07/31/2012 10:19 AM TENSIONING MACHINE OPERATOR Pulse 75 07/31/2012 10:19 AM TENSIONING MACHINE OPERATOR Temperature - - Respiratory Rate 18 04/01/2023 9:32 AM CDT Oxygen Saturation 96% 07/31/2012 10:19 AM TENSIONING MACHINE OPERATOR Inhaled Oxygen Concentration - - Weight 56.7 kg (125 lb) 04/01/2023 9:32 AM CDT Height 170.2 cm (5' 7 ) 04/01/2023 9:32 AM CDT Body Mass Index 19.58 04/01/2023 9:32 AM CDT Plan of Treatment Not on file Insurance MEDICARE SOLUTIONS Member Subscriber Plan / Payer (Ef fective 2022-Present) Name:Luis Felipe Robert Erica Relation to Subscriber:Self Name:Luis Felipe Robert Erica Payer ID:[id number] (NAIC) Type:[facility] MEDICARE Address: [place] [id number] MEDICARE SOLUTIONS Care Teams Squad Sergeant Relationship Specialty Start Date End Date Jorge Sin MD [address] [facility] [address] [place] [address] PCP - General Internal Medicine 12/24/22
--- OUTSIDE RECORDS SUMMARY | 2024-08-27 14:53 | XMS_ITS | Clinical Summary ---
Author Organization [facility] [address] Address [address] [place] [address] Care Team Providers Care Photo Intern Name Role Phone Jorge Sin MD Primary Care Provider [phone]- [phone] Allergies No known active allergies Medications metoprolol [...] 05/29/2011 Surgical History Surgery Date Site/Laterality Comments [place] UNLISTED PROCEDURE ABDOMEN PERITONEUM & OMENTUM Hernia [...] on file Legal Sex Male 9:17 AM WASTE AND BATTING WASTE CHOPPER Gender Identity Not on file Sexual Orientation Not on file Obstetrics History Last Filed Vital Signs Vital Sign Reading Time Taken Comments Blood Pressure 119/73 07/31/2012 10:19 AM WASTE AND BATTING WASTE CHOPPER Pulse 75 07/31/2012 10:19 AM WASTE AND BATTING WASTE CHOPPER Temperature - - Respiratory Rate 18 04/01/2023 9:32 AM CDT Oxygen Saturation 96% 07/31/2012 10:19 AM WASTE AND BATTING WASTE CHOPPER Inhaled Oxygen Concentration - - Weight 56.7 [...] Influenza Vaccine (#1) 2024 Insurance MEDICARE SOLUTIONS MEDICARE SOLUTIONS Care Teams Photo Intern Relationship Specialty Start Date End Date Jorge Sin MD [address] [facility] [address] [place] [address] PCP - General Internal Medicine 12/24/22
--- OUTSIDE RECORDS SUMMARY | 2024-08-27 14:53 | XMS_ITS | Continuity of Care Document ---
Author Organization [facility] Address [address] [place] [address] Phone Care Team Providers Care Carry In Worker Name Role Phone Doisy, Edward Unavailable Unavailable Advance Directives Directive Yes / No Effective Date File Name No Information Encounters Encounter Description Practice Location Reason(s) For Visit Diagnoses Date Provider Providers Copied on Encounter [facility], [address], [place], [place], [id number], [place] tel:[phone] [facility] [place] No Information Sep-1 8-200 0 Doisy Edward. [address] , [address], [place], [address], [place]. tel:[phone] Family History Family Member Type Diagnosis Age At Onset No Information Payers Payer name Insurance type Covered republican ID Authoriza tion(s) [employer] Workers Compensation [id number] Social History Type Description Quantity Date Captured [...]
[2024-08-27] MEDS: METOCLOPRAMIDE HCL INJ 10 MG/2 ML VIAL IV PUSH (15:25)
[2024-08-27] MEDS: diphenhydrAMINE HCl INJ 50 MG/ML VIAL 25 MG IV PUSH (15:25)
[2024-08-27 15:29] LABS: Basophils Percent Auto 0.6 % (0.2-1.2); Eosinophils Absolute Auto 0.2 K/mm3 (0-0.3); Eosinophils Percent Auto 4.3 % (0-4.4); Hematocrit 41.1 % (42.0-52.0); Hemoglobin 12.9 g/dL (14.0-18.0); Immature Granulocyte Absolute 0.02 K/mm3 (0.00-0.031); Immature Granulocyte Percent A 0.4 % (0-0.5); Lymphocytes Absolute Auto 1.69 K/mm3 (0.9-3.2); Lymphocytes Percent Auto 33.1 % (18.3-44.2); Mean Corpuscular HGB Conc 31.4 g/dl (32-36); Mean Corpuscular Volume 89.2 fl (80-100); Mean Platelet Volume 9.7 fl (7.4-10.4); Monocytes Absolute Auto 0.4 K/mm3 (0.1-0.6); Monocytes Percent Auto 8.6 % (2.6-8.5); Neutrophils Absolute Auto 2.7 K/mm3 (1.3-6.7); Platelet Count Result 234 k/mm3 (150-375); Red Blood Count 4.61 M/mm3 (4.6-6.20); Red Cell Distribution Width 13.9 % (11.5-14.5); White Blood Count 5.1 K/mm3 (4.5-10.0)
[2024-08-27] MEDS: SODIUM CHLORIDE 0.9% IV 50 ML (15:31)
[2024-08-27 15:48] LABS: Anion Gap 6 mmol/L (4-12); Blood Urea Nitrogen 16 mg/dL (9-20); Calcium 8.5 mg/dL (8.4-10.2); Carbon Dioxide 31 mmol/L (22-30); Chloride 101 mmol/L (98-107); Estimated CRCL calculation 64 ml/min; Estimated Glomerular Filt Rate > 60; Glucose 88 mg/dL (65-110); Potassium 3.8 mmol/L (3.4-5.0); Sodium 138 mmol/L (137-145)
--- NOTE | 2024-08-27 16:47 | ED_ITS ---
HPI - Headache General Chief Complaint: Headache Stated Complaint: h/a x2 months +mult. other complaints Time Seen by Provider: 08/27/24 14:34 History of Present Illness HPI Narrative: Patient presents with months of headache, worse with light, associated with nausea. H/o AVM, aneurysms, wanted to f/u with his PCP but there is months of waiting and he is very concerned and wants to make sure things okay. He has also noticed occasionally a pulsing spot around his left neck, and occasionally some tingling to his 3rd and 4th toe pain Related Data Home Medications ?Medication ?Instructions ?Recorded ?Confirmed ?Last Taken ?Type vzclyjd-ppmwolkfousfg-ppzzmock 250 1 tablet PO Q4-6H PRN Headache 12/24/22 05/05/24 12/24/22 07:00 History mg-250 mg-65 mg tablet (Excedrin Extra Strength) Allergies Allergy/AdvReac Type Severity Reaction Status Date / Time No Known Allergies Allergy Unknown Verified 08/27/24 11:47 Review of Systems 2 Review of Systems: All systems reviewed & are unremarkable except as noted in HPI and below PMFSH Past Medical History Medical History Ascending aortic aneurysm Chronic obstructive pulmonary disease Migraine Nicotine dependence Pulmonary nodule Transient ischemic attack Surgical History Surgical History History of bilateral inguinal hernia repair History of colonoscopy History of inguinal hernia repair History of neck surgery Family History Family History Mother Patient's mother is Family history of congestive heart failure Diabetes mellitus Father Patient's father is Family history of pancreatic cancer Grandparent Diabetes mellitus Social History Social History Social History: Surrogate medical decision maker: Ciara Robert, spouse. Code status: Full code. Smoking packs per day: 1.5 Smoking cigarettes per day: 30.0 Years smoked: 56 Smoking pack-years: 84.00 Smoking status: Current every day smoker Tobacco type: cigarettes Alcohol intake: never Substance use: never Substance use type: does not use Do You Feel Safe in your Home?: Yes Lack of Transportation: No Lack of Food: Never True Current Housing: I Have Housing Concerned About Future Housing: No Difficulty Paying Gas/Electric Bills: No Difficulty Paying for Meds: No Currently Unemployed: No Education: Associate Degree Difficulty w/ Childcare or Family Care: No Additional living arrangements comments: Lives with spouse in [place]. Additional occupation/education comments: Retired. Spiritual care concerns: No Exam 2 Narrative: EXAMINATION OF ORGAN SYSTEMS/BODY AREAS: Constitutional: Vital signs per nursing GENERAL:[No acute distress, non-toxic appearing.] HEAD: Normal with no signs of head trauma. EYES: EOMI, conjunctiva normal ENT: Hearing grossly intact LUNGS: Nonlabored breathing. HEART: [Regular rate and rhythm], normal left DP pulses, good perfusion to the toes ABD: [Soft], [nontender to palpation] EXT: Normal range of motion SKIN: [No rashes or lesions.] NEURO: [Alert and oriented x 3. No gross focal sensory or strength deficits.] PSYCH: Normal affect Course Vital Signs Vital signs: Vital Signs Temperature 97.6 F 08/27/24 11:47 Pulse Rate 65 08/27/24 11:47 Respiratory Rate 16 08/27/24 11:47 Blood Pressure 183/83 H 08/27/24 11:47 Pulse Oximetry 98 08/27/24 11:47 Oxygen Delivery Room Air 08/27/24 11:47 Temperature 97.6 F 08/27/24 11:47 Pulse Rate 56 L 08/27/24 14:29 Respiratory Rate 17 08/27/24 14:29 Blood Pressure 188/96 H 08/27/24 14:29 Pulse Oximetry 99 08/27/24 14:29 Oxygen Delivery Room Air 08/27/24 11:47 MDM - Headache MDM Narrative Medical decision making narrative: 74M presents to the emergency department for headache as well as the occasional paresthesias to 2 of his left toes.. Patient is hemodynamically stable. No focal neurological or cranial nerve deficits on exam. No meningeal signs. The headache was gradual in onset, it is not exertional and does not appear consistent with subarachnoid hemorrhage or intracranial bleeding. No trauma. Has also been ongoing for months. He does have history of aneurysms and AVM so I will obtain imaging. Patient is given headache cocktail including Reglan, Benadryl On reevaluation, the patient feels significantly better with the headache resolved. Repeat BP 160s/80s; he does have h/o htn on BP meds already. No neurological deficits. Patient is comfortable going home for outpatient follow- up with primary care physician and/or neurology and provided with strict return precautions, especially for worsening headaches, neck pain/stiffness, fever or weakness, numbness/tingling or persistent vomiting Lab Data 08/27/24 15:23 08/27/24 15:23 Labs: Lab Results 08/27/24 Range/Units 15:23 WBC 5.1 (4.5-10.0) K/mm3 RBC 4.61 (4.6-6.20) M/mm3 Hgb 12.9 L (14.0-18.0) g/dL Hct 41.1 L (42.0-52.0) % MCV 89.2 (80-100) fl MCH 28.0 (26-34) pg MCHC 31.4 L (32-36) g/dl RDW 13.9 (11.5-14.5) % Plt Count 234 (150-375) k/mm3 MPV 9.7 (7.4-10.4) fl Immature Gran % (Auto) 0.4 (0-0.5) % Neut % (Auto) 53.0 (45.5-73.1) % Lymph % (Auto) 33.1 (18.3-44.2) % Edwards % (Auto) 8.6 H (2.6-8.5) % Eos % (Auto) 4.3 (0-4.4) % Baso % (Auto) 0.6 (0.2-1.2) % Lymph # (Auto) 1.69 (0.9-3.2) K/mm3 Edwards # (Auto) 0.4 (0.1-0.6) K/mm3 Eos # (Auto) 0.2 (0-0.3) K/mm3 Baso # (Auto) 0.0 (0.0-0.1) K/mm3 Abs Immat Gran (auto) 0.02 (0.00-0.031) K/mm3 Absolute Neuts (auto) 2.7 (1.3-6.7) K/mm3 Absolute Nucleated RBC 0.000 (0.0-0.012) K/mm3 Nucleated RBC % 0.0 (0.0-0.2) % Sodium 138 (137-145) mmol/L Potassium 3.8 (3.4-5.0) mmol/L Chloride 101 (98-107) mmol/L Carbon Dioxide 31 H (22-30) mmol/L Anion Gap 6 (4-12) mmol/L BUN 16 (9-20) mg/dL Creatinine 0.73 (0.7-1.3) mg/dL Estim Creat Clear Calc 64 ml/min Estimated GFR > 60 (59 - ) Glucose 88 (65-110) mg/dL Calcium 8.5 (8.4-10.2) mg/dL Discharge Plan Discharge Clinical Impression: Headache Patient Disposition: Home, Self-Care Condition: Stable Instructions: General Headache (ED) Additional Instructions: Please follow up with your doctor; you can always return for any further issues. Patient Language: Mongolian Prescriptions: No Action Excedrin Extra Strength 250-250-65 mg Tablet 1 tablet PO Q4-6H PRN (Reason: Headache) metoprolol succinate 25 mg tablet extended release 24 hr See Rx Instructions .ROUTE .COMPLEX Qty: 180 2RF Dose Instruction: TAKE 1 TABLET BY MOUTH TWICE DAILY Rx Instructions: TAKE 1 TABLET BY MOUTH TWICE DAILY losartan 50 mg tablet 50 mg PO BID Qty: 180 3RF Follow-up/Referrals: Robert Kendrick DO [Primary Care Provider] -
== END 2024-08-27 16:59 | disposition home or self-care (01) ==
PROVIDERS: Emergency Provider Emergency Medicine; PCP Internal Medicine
DX: J44.9 Chronic obstructive pulmonary disease, unspecified (principal); I71.40 Abdominal aortic aneurysm, without rupture, unspecified; F17.210 Nicotine dependence, cigarettes, uncomplicated; Z86.73 Personal history of transient ischemic attack (TIA), and cerebral infarction without residual deficits; Z79.899 Other long term (current) drug therapy
CPT/HCPCS: 36415; 70496; 70498; 80048; 85025; 96374; 96375; 99284; J1200; J2765; Q9967

== ENCOUNTER 2024-09-21 15:41 | Outpatient (CLI) | payer MEDICARE, SELFPAY ==
--- NOTE | ~2024-09-21 | MR_ITS ---
EXAMINATION: MR cervical spine wo con DATE: 09/21/2024 17:11 INDICATION: Neck pain. TECHNIQUE: Magnetic resonance imaging (MRI) of the cervical spine was performed without intravenous c ontrast. COMPARISON: Cervical spine MRI 05/03/2011 FINDINGS: There is kyphosis of cervical spine. There is 2 mm anterolisthesis of C7 on T1. There is mi ld chronic anterior wedging of T1 vertebral body. There are laminectomies at C3 and C4. There is mild ly decreased disc height at C3-C4, moderately decreased disc height at C4-C5 and C5-C6, and severely decreased disc height at C6-C7. There is increased T2-weighted signal intensity in the spinal cord at the right at C3, consistent with myelomalacia. There are old blood products in this area. The follow ing disc levels are specifically discussed: C2-C3: There is a central protrusion. There is mild bilateral uncovertebral joint osteoarthritis. The re is severe right and moderate left facet joint osteoarthritis. There is moderate right and mild lef t neural foraminal stenosis. There is mild central canal stenosis. C3-C4: The disc is bulging. There is moderate and severe left uncovertebral joint osteoarthritis. The re is moderate right and severe left facet joint osteoarthritis. There is mild right and moderate lef t neural foraminal stenosis. There is mild central canal stenosis. There is posterior decompression. C4-C5: The disc is bulging. There is mild right and severe left uncovertebral joint osteoarthritis. T here is mild bilateral facet joint osteoarthritis. There is mild right and moderate left neural mickey inal stenosis. There is mild central canal stenosis. There is posterior decompression. C5-C6: The disc is bulging. There is severe bilateral uncovertebral joint osteoarthritis. There is mi ld bilateral facet joint osteoarthritis. There is moderate right and mild left neural foraminal steno sis. There is mild central canal stenosis. C6-C7: The disc is bulging. There is severe bilateral uncovertebral joint osteoarthritis. There is mo derate bilateral facet joint osteoarthritis. There is moderate bilateral neural foraminal stenosis. T here is mild central canal stenosis. C7-T1: The disc does not extend beyond the endplate margin. There is no uncovertebral joint osteoarth ritis. There is severe bilateral facet joint osteoarthritis. There is mild bilateral neural foraminal stenosis. There is no central canal stenosis. IMPRESSION: 1. 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 2. Severe cervical spondylosis, worsened from 05/03/2011. Reviewed, dictated and finalized at location B.
--- OUTSIDE RECORDS SUMMARY | 2024-09-21 18:21 | XMS_ITS | Clinical Summary ---
Author Organization [facility] Address [address] [place] [address] Care Team Providers Care Life Science Technician Name Role Phone Jorge Sin MD Primary Care Provider [phone] Allergies No known active allergies Medications albuterol [...] Comments Blood Pressure 130/83 07/29/2020 11:06 AM NOVELTY DIPPER Pulse 58 07/29/2020 11:09 AM NOVELTY DIPPER Temperature 36.9 C (98.5 F) 07/29/2020 9:47 AM NOVELTY DIPPER Respiratory Rate 21 07/29/2020 11:09 AM NOVELTY DIPPER Oxygen Saturation 96% 07/29/2020 11:09 AM NOVELTY DIPPER Inhaled Oxygen Concentration - - Weight 63.5 kg (140 lb) 07/29/2020 9:47 AM NOVELTY DIPPER Height 171.5 cm (5' 7.5 ) 07/29/2020 9:47 AM NOVELTY DIPPER Body Mass Index 21.6 07/29/2020 9:47 AM NOVELTY DIPPER Plan of Treatment Health Maintenance Due Date [...] to complete this topic Insurance Care Teams Life Science Technician Relationship Specialty Start Date End Date Jorge Sin MD [address] [place] [address] PCP - General INTERNAL MEDICINE 03/24/19
--- OUTSIDE RECORDS SUMMARY | 2024-09-21 18:21 | XMS_ITS | Continuity of Care Document ---
Author Organization [facility] Address [address] [place] [address] Phone Care Team Providers Care Photograph Mounter Name Role Phone Doisy, Edward Unavailable Unavailable Advance Directives Directive Yes / No Effective Date File Name No Information Encounters Encounter Description Practice Location Reason(s) For Visit Diagnoses Date Provider Providers Copied on Encounter [facility], [address], [place], [place], [id number], [place] tel:[phone] [facility] [place] No Information Sep-1 8-200 0 Doisy Edward. [address] [facility] [address] [place] , [address], [place], [address], [place]. tel:[phone] Family History Family Member Type Diagnosis Age At Onset No Information Payers Payer name Insurance type Covered constitution party ID Authoriza tion(s) [employer] Workers Compensation [id number] Social History Type Description Quantity Date Captured [...]
--- OUTSIDE RECORDS SUMMARY | 2024-09-21 18:21 | XMS_ITS | Clinical Summary ---
Author Organization [facility] [address] Address [address] [place] [address] Care Team Providers Care It Applications Manager Name Role Phone Jorge Sin MD Primary Care Provider [phone] Allergies No known active allergies Medications metoprolol [...] 05/29/2011 Surgical History Surgery Date Site/Laterality Comments CT UNLISTED PROCEDURE ABDOMEN PERITONEUM & OMENTUM Hernia [...] on file Legal Sex Male 9:17 AM PERFORATOR OPERATOR Gender Identity Not on file Sexual Orientation Not on file Obstetrics History Last Filed Vital Signs Vital Sign Reading Time Taken Comments Blood Pressure 119/73 07/31/2012 10:19 AM PERFORATOR OPERATOR Pulse 75 07/31/2012 10:19 AM PERFORATOR OPERATOR Temperature - - Respiratory Rate 18 04/01/2023 9:32 AM CDT Oxygen Saturation 96% 07/31/2012 10:19 AM PERFORATOR OPERATOR Inhaled Oxygen Concentration - - Weight 56.7 kg (125 lb) 04/01/2023 9:32 AM CDT Height 170.2 cm (5' 7 ) 04/01/2023 9:32 AM CDT Body Mass Index 19.58 04/01/2023 9:32 AM CDT Plan of Treatment Health Maintenance Due Date Last Done Comments Colon Cancer Screening-Colonoscopy 1950 Depression Screening 1950 Fall Risk Assessment 1950 Hepatitis C Screening 1950 DTaP/Tdap/Td Vaccine (1 - Tdap) 1961 Hepatitis B Screening 1968 Pneumococcal vaccine 65+ (1 of 2 - PCV) 1969 Zoster Vaccine (1 of 2) 2000 Abdominal Aortic Aneurysm (AAA) Screen 2015 Well Visit 65+ 2015 Influenza Vaccine (#1) 2024 Insurance MEDICARE SOLUTIONS MEDICARE SOLUTIONS Care Teams It Applications Manager Relationship Specialty Start Date End Date Jorge Sin MD [address] [facility] [address] [place] [address] PCP - General Internal Medicine 12/24/22
--- OUTSIDE RECORDS SUMMARY | 2024-09-21 18:21 | XMS_ITS | Referral Summary ---
Author Organization [facility] [address] Address [address] [place] [address] Care Team Providers Care College Counselor Name Role Phone Jorge Sin MD Primary Care Provider [phone]- [phone] Allergies No known active allergies Medications metoprolol [...] on file Legal Sex Male 9:17 AM SUPERVISOR ASSEMBLY AND PACKING Gender Identity Not on file Sexual Orientation Not on file Last Filed Vital Signs Vital Sign Reading Time Taken Comments Blood Pressure 119/73 07/31/2012 10:19 AM SUPERVISOR ASSEMBLY AND PACKING Pulse 75 07/31/2012 10:19 AM SUPERVISOR ASSEMBLY AND PACKING Temperature - - Respiratory Rate 18 04/01/2023 9:32 AM CDT Oxygen Saturation 96% 07/31/2012 10:19 AM SUPERVISOR ASSEMBLY AND PACKING Inhaled Oxygen Concentration - - Weight 56.7 kg (125 lb) 04/01/2023 9:32 AM CDT Height 170.2 cm (5' 7 ) 04/01/2023 9:32 AM CDT Body Mass Index 19.58 04/01/2023 9:32 AM CDT Plan of Treatment Not on file Insurance MEDICARE SOLUTIONS Member Subscriber Plan / Payer (Ef fective 2022-Present) Name:Luis Felipe Robert Erica Relation to Subscriber:Self Name:Luis Felipe Robert Erica Payer ID:[id number] (NAIC) Type:[facility] Address: [place] [id number] MEDICARE SOLUTIONS Care Teams College Counselor Relationship Specialty Start Date End Date Jorge Sin MD [address] [facility] [address] [place] [address] PCP - General Internal Medicine 12/24/22
== END 2024-09-21 15:42 | disposition home or self-care (01) ==
PROVIDERS: PCP Internal Medicine; Visit Provider Internal Medicine
DX: G95.89 Other specified diseases of spinal cord (principal); M47.812 Spondylosis without myelopathy or radiculopathy, cervical region; Z98.890 Other specified postprocedural states
CPT/HCPCS: 72141

== ENCOUNTER 2024-12-23 00:48 | Day surgery (SDC) | payer MEDICARE, SELFPAY ==
[2024-12-11 13:30] VITALS: BMI 21.2
[2024-12-23 09:45] VITALS: BP 150/85; PULSE 84; RESP 16; TEMP 36.2; O2SAT 98; BMI 18.2
[2024-12-23] MEDS: LACTATED RINGERS 1,000 ML 150 ML IV CONT (10:01)
--- NOTE | 2024-12-23 10:14 | PM.HPGS ---
History of Present Illness History of Present Illness Consent: Risks, benefits, and alternatives have been discussed and questions answered. Patient agrees to proceed with procedure. Chief complaint: Diverticulitis of intestine Narrative: Luis Felipe Robert is a 74 year old male with sigmoid diverticulitis about 2 months ago treated with abx, now back to his baseline, last colonoscopy years ago Review of Systems Review of Systems: All systems reviewed & are unremarkable except as noted in HPI and below PMFSH Past Medical History Medical History (Updated 12/23/24 @ 10:16 by Noel Guillory MD) History of diverticulitis of colon Chronic obstructive pulmonary disease Migraine Transient ischemic attack Nicotine dependence Ascending aortic aneurysm Pulmonary nodule Surgical History Surgical History History of colonoscopy History of bilateral inguinal hernia repair History of neck surgery History of inguinal hernia repair Family History Family History Mother Patient's mother is Family history of congestive heart failure Diabetes mellitus Father Patient's father is Family history of pancreatic cancer Grandparent Diabetes mellitus Social History Social History Social History: Surrogate medical decision maker: Ciara Robert, spouse. Code status: Full code. Smoking packs per day: 1.5 Smoking cigarettes per day: 30.0 Years smoked: 56 Smoking pack-years: 84.00 Smoking status: Current every day smoker Tobacco type: cigarettes Alcohol intake: never Substance use: never Substance use type: does not use Do You Feel Safe in your Home?: Yes Lack of Transportation: No Lack of Food: Never True Current Housing: I Have Housing Concerned About Future Housing: No Difficulty Paying Gas/Electric Bills: No Difficulty Paying for Meds: No Currently Unemployed: No Education: Associate Degree Difficulty w/ Childcare or Family Care: No Additional living arrangements comments: Lives with spouse in [place]. Additional occupation/education comments: Retired. Spiritual care concerns: No Meds Home Medications and Allergies Home Medications ?Medication ?Instructions ?Recorded ?Confirmed ?Type puzeylu-kgdefkoeutxds-[id number] 250 1 tablet PO Q4-6H PRN Headache 12/24/22 12/11/24 History mg-250 mg-65 mg tablet (Excedrin Extra Strength) valsartan 320 mg tablet 320 mg PO DAILY #90 tabs 09/09/24 12/23/24 Rx metoprolol succinate 25 mg See Rx Instructions .Route 10/05/24 12/23/24 Rx tablet,extended release 24 hr .COMPLEX #180 tabs atogepant 30 mg tablet (Qulipta) 30 mg PO DAILY #90 tabs 12/08/24 12/23/24 Rx sumatriptan succinate 100 mg See Rx Instructions PO .COMPLEX 12/23/24 12/23/24 History tablet (Imitrex) PRN migraine headache Allergies Allergy/AdvReac Type Severity Reaction Status Date / Time No Known Allergies Allergy Unknown Verified 12/23/24 09:49 Vital Signs Vital Signs - 24 hr 12/23/24 09:45 Temperature 97.2 F L Pulse Rate 84 Respiratory Rate 16 Blood Pressure 150/85 H Pulse Oximetry 98 Oxygen Delivery Room Air Exam Const: General: comfortable and no acute distress HENMT: Face/Nose/Sinus: Normal nares present Eyes: General: appearance normal, both eyes and all related structures Neck: Neck: no JVD Resp: Auscultation: clear to auscultation bilaterally Cardio: Rate: regular rate Rhythm: regular rhythm GI: Inspection: non-distended GI Palp: Yes Soft to palpation Skin: General skin exam: normal color Neuro: General: gait normal Speech: normal speech Extrem: General: normal to inspection Psych: Mental Status: mental status grossly normal Assessment and Plan Assessment and plan (1) History of diverticulitis of colon: Code(s): Z87.19 - Personal history of other diseases of the digestive system Status: Acute Assessment and Plan: colonoscopy
--- NOTE | 2024-12-23 10:17 | P.PNAN_ITS ---
Anes - Initial Pre Proc Eval Procedure: Operation Date: 12/23/24 11:00 Proposed Procedures p Colonoscopy - Noel Guillory MD Date/Time: 12/23/24 10:17 Surgeon: Noel Guillory MD Pre Op Diagnosis: Diverticulitis of intestine Patient Data Age: 74 Gender: M Height: 1.7 m Weight: 52.9 kg Last Vital Signs Temp 36.2 C L 12/23/24 09:45 Pulse 84 12/23/24 09:45 Resp 16 12/23/24 09:45 BP 150/85 H 12/23/24 09:45 Pulse Ox 98 12/23/24 09:45 O2 Del Method Room Air 12/23/24 09:45 Allergies Allergy/AdvReac Type Severity Reaction Status Date / Time No Known Allergies Allergy Unknown Verified 12/23/24 09:49 Home Medications ?Medication ?Instructions ?Recorded ?Confirmed ?Type knedzvn-itibfnmsxvuld-tcjxsshr 250 1 tablet PO Q4-6H PRN Headache 12/24/22 12/11/24 History mg-250 mg-65 mg tablet (Excedrin Extra Strength) valsartan 320 mg tablet 320 mg PO DAILY #90 tabs 09/09/24 12/23/24 Rx metoprolol succinate 25 mg See Rx Instructions .Route 10/05/24 12/23/24 Rx tablet,extended release 24 hr .COMPLEX #180 tabs atogepant 30 mg tablet (Qulipta) 30 mg PO DAILY #90 tabs 12/08/24 12/23/24 Rx sumatriptan succinate 100 mg See Rx Instructions PO .COMPLEX 12/23/24 12/23/24 History tablet (Imitrex) PRN migraine headache Patient hx anesthesia problems: none Family hx anesthesia problems: none Results Review: All pre-operative results and documents have been reviewed as part of the pre- operative evaluation. [facility] Past Medical History Medical History History of diverticulitis of colon Chronic obstructive pulmonary disease Migraine Transient ischemic attack Nicotine dependence Ascending aortic aneurysm Pulmonary nodule Surgical History Surgical History History of colonoscopy History of bilateral inguinal hernia repair History of neck surgery History of inguinal hernia repair Family History Family History Mother Patient's mother is Family history of congestive heart failure Diabetes mellitus Father Patient's father is Family history of pancreatic cancer Grandparent Diabetes mellitus Social History Social History Social History: Surrogate medical decision maker: Ciara Robert, spouse. Code status: Full code. Smoking packs per day: 1.5 Smoking cigarettes per day: 30.0 Years smoked: 56 Smoking pack-years: 84.00 Smoking status: Current every day smoker Tobacco type: cigarettes Alcohol intake: never Substance use: never Substance use type: does not use Do You Feel Safe in your Home?: Yes Lack of Transportation: No Lack of Food: Never True Current Housing: I Have Housing Concerned About Future Housing: No Difficulty Paying Gas/Electric Bills: No Difficulty Paying for Meds: No Currently Unemployed: No Education: Associate Degree Difficulty w/ Childcare or Family Care: No Additional living arrangements comments: Lives with spouse in [place]. Additional occupation/education comments: Retired. Spiritual care concerns: No Anes - Eval Final PreProcedure Day of Procedure 12/23/24 10:17 Patient weight: normal Heart: regular rate and rhythm Lungs: decreased breath sounds Airway: Mallampati scale class II Neurological: alert and oriented Last oral intake: >/= 8 hours ASA classification: IV Emergent: no Anesthetic plan: proceed Anesthesia type and monitoring: general GIVS and standard monitoring Results Review: All pre-operative results and documents have been reviewed as part of the pre- operative evaluation. Informed Consent: The patient's anesthetic plan and its attendant risks and benefits were discussed with the patient/family/POA. Questions were solicited and answers provided to the satisfaction of the patient/family/POA.
--- NOTE | 2024-12-23 10:41 | S_PTH ---
PATIENT: Luis Felipe Robert LOC: [facility] Diaz#:[id number] AGE/SX: 74/M ROOM: RE12/23/[address]: Noel Guillory MD : 1950 BED: DIS: 12/23/2024 SPEC #: [id number] RECD: 12/23/24 11:42 STATUS: MAYE REQ #: [id number] JULIA: 12/23/24 10:[address]: Noel Guillory DEPT: [facility] Surgical RECD BY: Jackie Richardson ENTERED: 12/23/24 11:43 SP TYPE: Surgical OTHR DR: Robert Kendrick DO Tissues: A - Colon Polypectomy B - Colon Polypectomy Procedures: Hematoxylin and Eosin Stain Gross and Microscopic Level 4
[2024-12-23 10:43] VITALS: BP 135/59; PULSE 79; RESP 25; O2SAT 96
[2024-12-23 10:53] VITALS: BP 126/97; PULSE 69; RESP 17; O2SAT 94
[2024-12-23 11:03] VITALS: BP 124/70; PULSE 70; RESP 17; O2SAT 97
== END 2024-12-23 11:20 | disposition home or self-care (01) ==
PROVIDERS: PCP Internal Medicine; Referring Provider Internal Medicine; Visit Provider Internal Medicine Gastroenterology
PROC: 0DJD8ZZ Inspection of Lower Intestinal Tract, Via Natural or Artificial Opening Endoscopic (ICD-10-PCS; CPT 45378; principal; 2024-12-23 11:00)
DX: Z12.11 Encounter for screening for malignant neoplasm of colon (principal); D12.2 Benign neoplasm of ascending colon; D12.3 Benign neoplasm of transverse colon; K57.30 Diverticulosis of large intestine without perforation or abscess without bleeding; K64.8 Other hemorrhoids; F17.210 Nicotine dependence, cigarettes, uncomplicated; Z87.19 Personal history of other diseases of the digestive system
CPT/HCPCS: 45385; 88305; J2003; J2704; J7120

== ENCOUNTER 2025-03-24 08:39 | Outpatient (CLI) | payer MEDICARE, SELFPAY ==
--- OUTSIDE RECORDS SUMMARY | 2000-04-01 09:15 | XMS_ITS | Continuity of Care Document ---
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 [address] [facility] [address] , [address], [place], [address], [place]. tel:[phone] Family History Family Member Type Diagnosis Age At Onset No Information Payers Payer name Insurance type Covered republican ID Authoriza tion(s) [employer] [id number] Social History Type Description Quantity Date Captured Comments Sex Male Smoking Status No Information Chief Complaint And Reason For Visit No Information Reason For Referral Reason For Referral No Information History Of Present Illness Encounter Date Complaint History Of Prese nt Illness No Information Functional Status Date Functional Assessmen t No Information Instructions Date Instruction Additional Infor mation No Information Assessments Type Assessment Date No Information Patient Care Teams Name Effective Dates (start - stop) Status Members No Information
--- NOTE | 2025-03-24 | EST_ITS ---
Patient Info Name: Luis Felipe Robert Age: 74 years : 1950 Gender: Male Ht: 67 in Wt: 120 lbs BSA: 1.60 m2 HR: 56 bpm BP: 146 / 80 mmHg Exam Date: 03/24/2025 9:47 AM Patient Status: O Admit Date: 03/24/2025 Exam Type: CA stress test treadmill A treadmill exercise stress test was performed. Staff Referring Physician: Jerald Morris DO Attending Provider: Jerald Morris DO Exercise Technologist: Carmen Marquez Exercise Physician: Jerald Morris DO Summary 1. 1. Negative Ryley exercise stress test for ischemic ST changes by ECG criteria. 2. 2. Reduced functional capacity, achieving 5 METs of workload. 3. 3. Baseline hypertension. 4. 4. Appropriate HR response to exercise. 5. 5. Appropriate HR recovery at 1 minute post exercise. 6. 6. No imaging with stress testing. 7. 7. Patient informed of the above results. Protocol: Ryley Stress ECG Details Stage: REST Duration (min): 0 min : 37 sec Speed (mph): 0.0 Grade (%): 0 HR (bpm): 55 SBP (mmHg): 146 DBP (mmHg): 80 METS: --- Stage: REST Duration (min): 10 min : 1 sec Speed (mph): 0.0 Grade (%): 0 HR (bpm): 74 SBP (mmHg): 146 DBP (mmHg): 80 METS: --- Stage: STAGE 1 Duration (min): 1 min : 0 sec Speed (mph): 1.7 Grade (%): 10 HR (bpm): 97 SBP (mmHg): 146 DBP (mmHg): 80 METS: --- Stage: STAGE 1 Duration (min): 2 min : 0 sec Speed (mph): 1.7 Grade (%): 10 HR (bpm): 117 SBP (mmHg): 146 DBP (mmHg): 80 METS: --- Stage: STAGE 1 Duration (min): 3 min : 0 sec Speed (mph): 1.7 Grade (%): 10 HR (bpm): 129 SBP (mmHg): 191 DBP (mmHg): 95 METS: --- Stage: STAGE 2 Duration (min): 0 min : 18 sec Speed (mph): 2.5 Grade (%): 12 HR (bpm): 131 SBP (mmHg): 191 DBP (mmHg): 95 METS: --- Stage: RECOVERY Duration (min): 0 min : 42 sec Speed (mph): 0.0 Grade (%): 0 HR (bpm): 120 SBP (mmHg): 191 DBP (mmHg): 95 METS: --- Stage: RECOVERY Duration (min): 1 min : 42 sec Speed (mph): 0.0 Grade (%): 0 HR (bpm): 93 SBP (mmHg): 191 DBP (mmHg): 95 METS: --- Stage: RECOVERY Duration (min): 2 min : 42 sec Speed (mph): 0.0 Grade (%): 0 HR (bpm): 81 SBP (mmHg): 193 DBP (mmHg): 91 METS: --- Stage: RECOVERY Duration (min): 3 min : 42 sec Speed (mph): 0.0 Grade (%): 0 HR (bpm): 75 SBP (mmHg): 193 DBP (mmHg): 91 METS: --- Stage: RECOVERY Duration (min): 4 min : 14 sec Speed (mph): 0.0 Grade (%): 0 HR (bpm): 76 SBP (mmHg): 175 DBP (mmHg): 88 METS: --- Rest HR: 74 bpm Peak HR: 137 bpm Rest Sys BP: 146 mmHg Peak Sys BP: 193 mmHg Max Pred HR: 146 bpm % Max Pred HR: 94 % Target HR: 124 bpm Max RPP: 26,441 bpm*mmHg Fish Score: -2 Termination Reason: Reached target heart rate or workload Cardiac Symptoms: Shortness of breath Max ST Seg Deviation: -1.00 mm Total Time: 3 min : 18 sec Rest Hilliard BP: 80 mmHg Peak Hilliard BP: 91 mmHg Angina Score: None Total METS: 5.0 Resting ECG Sinus rhythm. Stress ECG No ST changes. Arrhythmias None. PVC's. Report Signatures
--- NOTE | 2025-03-24 | ECHO_ITS ---
Patient Info Name: Luis Felipe Robert Age: 74 years : 1950 Gender: Male Ht: 67 in Wt: 120 lbs BSA: 1.60 m2 HR: 58 bpm BP: 154 / 85 mmHg Technical Quality: Good Exam Date: 03/24/2025 10:19 AM Patient Status: O Admit Date: 03/24/2025 Exam Type: CA echo doppler color flow Complete two-dimensional, color flow and Doppler transthoracic echocardiogram is performed. Rat Exterminator: Ema Sgae Attending Provider: Jerald Morris DO Summary 1. Complete two-dimensional, color flow and Doppler transthoracic echocardiogram is performed. 2. Left ventricular chamber dimension is normal. 3. Left ventricular systolic function is normal, estimated at 60-65. 4. The left ventricular diastolic function is normal. 5. E/e' 7 is not elevated. 6. There is mild aortic valve sclerosis. 7. There is mild aortic valve regurgitation. 8. There is mild mitral valve regurgitation. 9. There is mild tricuspid valve regurgitation. 10. Moderate pulmonary hypertension, estimated pulmonary arterial systolic pressure is 50 mmHg. 11. There is mild pulmonic regurgitation. 12. The aortic root size at the sinus of Valsalva is borderline dilated at 4.1 cm. 13. Dilated inferior vena cava with >50% collapse upon inspiration consistent with elevated right atrial pressure, 10 mmHg. Left Ventricle E/e' 7 is not elevated. Left ventricular chamber dimension is normal. Left ventricular systolic function is normal, estimated at 60-65. The left ventricular diastolic function is normal. Right Ventricle Right ventricular chamber dimension is normal. Right ventricular systolic function is normal and with normal TAPSE 2.8 cm. Left Atria Left atrial chamber dimension is normal. Right Atria Right atrial chamber dimension is normal. Aortic Valve The aortic valve is trileaflet. There is mild aortic valve sclerosis. There is no aortic valve stenosis. There is mild aortic valve regurgitation. Pulmonic Valve There is mild pulmonic regurgitation. Mitral Valve There is no mitral valve stenosis. There is mild mitral valve regurgitation. Tricuspid Valve There is mild tricuspid valve regurgitation. Moderate pulmonary hypertension, estimated pulmonary arterial systolic pressure is 50 mmHg. Pericardium/Pleural There is no pericardial effusion. Inferior Vena Cava Dilated inferior vena cava with >50% collapse upon inspiration consistent with elevated right atrial pressure, 10 mmHg. Aorta The aortic root size at the sinus of Valsalva is borderline dilated at 4.1 cm. Left Ventricular Outflow Tract Name Value Normal LVOT 2D LVOT Diameter 2.3 cm LVOT Doppler LVOT Peak Velocity 71 cm/s LVOT Peak Gradient 2 mmHg LVOT Mean Gradient 1 mmHg LVOT VTI 17 cm LVOT Stroke Volume 70 ml LVOT CO 4.1 l/min LVOT CI 2.6 l/min/m2 Pulmonic Valve Name Value Normal RVOT Doppler RVOT Peak Velocity 69 cm/s RVOT Peak Gradient 2 mmHg PV Doppler PV Peak Velocity 75 cm/s PV Peak Gradient 2 mmHg PV Regurgitation Doppler MS Peak End Diastolic Velocity 160 cm/s Mitral Valve Name Value Normal MV Diastolic Function MV E Peak Velocity 54 cm/s MV A Peak Velocity 46 cm/s MV E/A 1.2 MV Decel Time (PW) 229 ms MV Annular TDI MV E/e' (Septal) 9.3 MV E/e' (Lateral) 5.7 MV E/e' (Average) 7.5 Tricuspid Valve Name Value Normal TV Regurgitation Doppler TR Peak Velocity 317 cm/s TR Peak Gradient 40 mmHg Estimated PAP/RSVP RA Pressure 10 mmHg <=5 PA Systolic Pressure 50 mmHg <36 RV Systolic Pressure 50 mmHg <36 Aortic Valve Name Value Normal AV Doppler AV Peak Velocity 73 cm/s AV Peak Gradient 2 mmHg AV Area (Cont Eq Bhupinder) 3.9 cm2 AV DI (Bhupinder) 0.97 AV Regurgitation 2D LVOT Area 4.1 cm2 Ventricles Name Value Normal LV Dimensions 2D/MM IVS Diastolic Thickness (2D) 0.8 cm 0.6-1.0 LVID Diastole (2D) 4.3 cm 4.2-5.8 LVIW Diastolic Thickness (2D) 0.9 cm 0.6-1.0 LVID Systole (2D) 2.7 cm 2.5-4.0 LVOT Diameter 2.3 cm LV Mass (2D Cubed) 115.51 g 88.00-224.00 LV Mass Index (2D Cubed) 72 g/m2 49-115 Relative Wall Thickness (2D) 0.43 <=0.42 LV Fractional Shortening/Ejection Fraction 2D/MM LV Fractional Shortening (2D) 38 % 25-43 LV EF (2D Teichholz) 68 % LV Diastolic Volume (4C MOD) 92 ml LV EF (4C MOD) 54 % LV Diastolic Volume (2C MOD) 106 ml LV EF (2C MOD) 55 % LV Diastolic Volume (BP MOD) 100 ml 62-150 LV Diastolic Volume Index (BP MOD) 63 ml/m2 34-74 LV Systolic Volume (BP MOD) 46 ml 21-61 LV Systolic Volume Index (BP MOD) 29 ml/m2 11-31 LV EF (BP MOD) 54 % 52-72 LV Diastolic Length (4C) 7.5 cm LV Systolic Length (4C) 6.5 cm LV Stroke Volume (4C MOD) 50 ml Atria Name Value Normal LA Dimensions LA Volume (4C A-L) 26 ml LA Volume (BP A-L) 32 ml RA Dimensions RA Systolic Major [place] Length (4C) 5.5 cm 2.1-2.7 RA Area (4C) 18.7 cm2 <=18.0 Report Signatures
--- OUTSIDE RECORDS SUMMARY | 2025-03-24 09:06 | XMS_ITS | Clinical Summary ---
Author Organization [facility] [place] [address] Address [address] [place] [address] Care Team Providers Care Occ Ther Name Role Phone Robert Kendrick DO Primary Care Provider [phone] Juanita De La Torre MD Unavailable [phone] Allergies No known active allergies Medications atogepant (Qulipta) 30 mg tablet Take 30 mg by mouth daily Active metoprolol XL (TOPROL-XL) 25 mg extended release tablet Take 1 tablet (25 mg total) by mouth 2 (two) times a day Active SUMAtriptan (IMITREX) 100 mg tabletIndications:M igraine Take 1 tablet (100 mg total) by mouth once as needed for migraine Active acetaminophen-aspir in-caffeine (EXCEDRIN MIGRAINE) 250-250-65 mg per tablet Take 1 tablet by mouth every 6 (six) hours as needed for headaches Active aspirin 81 mg enteric coated tabletIndications:c erebral ischemia Take 1 tablet (81 mg total) by mouth daily 30 tablet 01/12/20 25 026 Active atorvastatin (LIPITOR) 80 mg tabletIndications:S econdary Stroke Prevention Take 1 tablet (80 mg total) by mouth daily 30 tablet 01/12/20 25 026 Active clopidogreL (PLAVIX) 75 mg tabletIndications:C erebral Thromboembolism Prevention Take 1 tablet (75 mg total) by mouth daily for 19 doses 19 tablet 01/12/20 25 Active Additional Information Patient not taking.Reported on 02/09/2025 valsartan (DIOVAN) 320 mg tablet Take 0.5 tablets (160 mg total) by mouth daily 01/13/20 25 Active Active Problems Problem Noted Date Diagnosed Date Protein-calorie malnutrition, moderate Cerebrovascular accident (CVA) 01/09/2025 Epistaxis 04/01/2023 Deviated nasal septum 04/01/2023 Cervicalgia 08/30/2011 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 Encounters Date Type Department Care Team Description 02/09/2025 2:00 PM CDT Office Visit [facility] [address] [place] [address] Chantelle Roger NP Cerebrovascular accident (CVA), unspecified mechanism (HCC) (Primary Dx) 01/19/2025 [facility] Post Discharge Follow up phone call [facility] [address] [place] [phone] Kirstie Santana RN 01/12/2025 9:45 AM CDT Anesthesia Event [facility] [address] [place] [phone] Fletcher Marley MD 01/09/2025 12:09 PM CDT - 01/12/2025 1:52 PM CDT Hospital Encounter [facility] [address] [place] [phone] Amparo Tariq MD Anacius, Elisabeth, MD Phatak, Rahul S., MD Madej, Harshad Lopez, Cerebrovascular accident (CVA), unspecified mechanism (HCC) (Primary Dx); Benign neoplasm of spinal cord (HCC) [D33.4] Discharge Disposition: Discharge to home, home health skilled care from Last 3 Months Surgical History Surgery Date Site/Laterality Comments IA UNLISTED PROCEDURE ABDOMEN PERITONEUM & OMENTUM Hernia Repair - (Added by TW Conv) HAND SURGERY Hand Surgery - (Added by Conv) BACK SURGERY 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 Castañeda (Added by Conv) HERNIA REPAIR 07/15/2021 - 07/14/2022 Bilateral [...] uit: Not Asked; Counseling Given: Not Answered [facility] Utilities Answer Date Recorded In the past 12 months has th e electric, gas, oil, or water [employer] threatened to shut off services in your home? No 01/11/2025 Social Connection and Isolation Panel Answer Date Recorded In a typical week, how many times do you talk on the phone with family, friends, or neighbors? More than three times a week 01/11/2025 How often do you get togethe r with friends or relatives? More than three times a week 01/11/2025 How often do you attend [facility] or [facility] services? Patient unable to answer 01/11/2025 Do you belong to any clubs o r organizations such as uatsdin groups, unions, fraternal or athletic groups, or school groups? Patient declined 01/11/2025 How often do you attend meet ings of the clubs or organizations you belong to? Patient unable to answer 01/11/2025 Are you , , di vorced, , never , or living with a partner? 01/11/2025 AUDIT-C Answer Date Recorded Q1: How often do you have a drink containing alc ohol? Never 02/09/2025 Average Number of Drinks Not on file 025 Frequency of Binge Drinking Not on file 01/13 Overall Financial Resource Strain (CARDIA) Answe r Date Recorded How hard is it for you to pa y for the very basics like food, housing, medical care, and heating? Not very hard 01/11/2025 PHQ-2 Answer Date Recorded PHQ-2 Total Score (If total score is 3 or more points, staff should administer the PHQ-9) 0 01/09/2025 PRAPARE - Transportation Answer Date Re corded In the past 12 months, has l ack of transportation kept you from medical appointments or from getting medications? No 12/15 In the past 12 months, has l ack of transportation kept you from meetings, work, or from getting things needed for daily living? No 01/11/2025 Personal Safety Answer Date Recorded Have you ever been in or are you currently in a harmful physical or emotional relationship or is someone making you feel afraid or unsafe? Denies 01/09/2025 Sex and Gender Information Value Date Recorded Sex Assigned at Not on file Legal Sex Male 9:17 AM [employer] Gender Identity Not on file Sexual Orientation Not on file Obstetrics History Last Filed Vital Signs Vital Sign Reading Time Taken Comments Blood Pressure 126/62 02/09/2025 1:36 PM CDT Pulse 50 02/09/2025 1:36 PM CDT Temperature 36.6 C (97.8 F) 01/12/2025 12:10 PM CDT Respiratory Rate 16 02/09/2025 1:36 PM CDT Oxygen Saturation 97% 02/09/2025 1:36 PM CDT Inhaled Oxygen Concentration - - Weight 54.4 kg (120 lb) 02/09/2025 1:36 PM CDT Height 170.2 cm (5' 7) 02/09/2025 1:36 PM CDT Body Mass Index 18.79 02/09/2025 1:36 PM CDT Plan of Treatment Health Maintenance Due Date Last Done Comments Colon Cancer Screening-Colonoscopy 1950 Hepatitis C Screening 1950 DTaP/Tdap/Td Vaccine (1 - Tdap) 1961 Hepatitis B Screening 1968 Pneumococcal vaccine 65+ (1 of 2 - PCV) 1969 Zoster Vaccine (1 of 2) 2000 Well Visit 65+ 2015 Influenza Vaccine (#1) 2025 Depression Screening 01/09/2026 01/09/2025 Fall Risk Assessment 01/12/2026 01/12/2025 Abdominal Aortic Aneurysm (AAA) Screen Completed Procedures Procedure Name Priority Date/Time Associated Diagnosis Comments TRANSESOPHAGEAL ECHO (AILYN) W DOPPLER/CF WO CONTRAST Routine 01/12/2025 10:10 AM CDT CTA HEART AND CORONARIES WITH THORACIC AORTA IP Routine 01/11/2025 6:00 PM CDT TRANSTHORACIC ECHO (TTE) COMPLETE W DOPPLER/CF W CONTRAST W BUBBLE Routine 01/11/2025 11:39 AM CDT POCT GLUCOSE DEVICE Routine 01/11/2025 8 :07 AM CDT US CAROTIDS DUPLEX BILATERAL IP Routine 01/10/2025 4:24 PM CDT EGFR Routine 01/10/2025 5:19 AM CDT COMPREHENSIVE METABOLIC PANEL Routine 01/10/2025 5:19 AM CDT LIPID PANEL Routine 01/10/2025 5:19 AM CDT HEMOGLOBIN A1C Routine 01/10/2025 5:19 AM CDT MRI BRAIN W WO CONTRAST ED 01/10/20 5:28 PM CDT MRI LUMBAR SPINE W WO CONTRAST ED 01/09/2025 5:28 PM CDT TROPONIN T HIGH-SENSITIVITY 2-HOUR Timed 01/09/2025 3:33 PM CDT URINALYSIS AND REFLEX TO MICROSCOPIC AND CULTURE STAT 01/09/2025 3:33 PM CDT CTA HEAD NECK W WO CONTRAST ED 01/09/2025 1:35 PM CDT ECG 12-LEAD STAT 01/09/2025 12:39 PM CDT EGFR STAT 01/09/2025 12:22 PM CDT DIFFERENTIAL AUTO STAT 01/09/2025 12: 22 PM CDT TROPONIN T HIGH-SENSITIVITY SERIES (BASELINE, 2HR, 4HR, 6HR) STAT 01/09/2025 12:22 PM CDT PROTIME-INR STAT 01/09/2025 12:22 PM CDT APTT STAT 01/09/2025 12:22 PM CDT COMPREHENSIVE METABOLIC PANEL STAT 01/09/2025 12:22 PM CDT CBC WITH AUTO DIFFERENTIAL STAT 01/09/2025 12:22 PM CDT from Last 3 Months Results * TRANSESOPHAGEAL ECHO (AILYN) W DOPPLER/CF WO CONTRAST (01/12/2025 10:10 AM CDT) Estimated EF 55-60 % CONS SCIMAGE Anatomical Region Laterality Modality Echocardiography 01/12/2025 9:38 AM CDT Narrative 01/12/2025 9:38 PM CDT [facility] [address] 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 The procedure was monitored with automatic blood pressure monitoring, ECG tracings, and pulse oximetry. Sedation was achieved by anesthesia using Propofol IV. The transesophageal probe was placed in the esophagus posterior to the heart without any complications. The patient tolerated the procedure well. INDICATIONS: Aortic Valve Disease. MEASUREMENTS: 2D/MM Value Range Estimated EF 55-60 % AoR Diam 2D 4.20 cm [ 3.10 - 3.70 ] AoR Diam 2D Index 2.68 2D/MM Value Range - FINDINGS: BP: Blood pressure: 146/62 mmHg. Left Ventricle: Normal global and regional left ventricular systolic function. Ejection Fraction is estimated to be 55-60 %. Right Ventricle: Normal right ventricular size. Normal right ventricular systolic function. Left Atrium: There is mild enlargement of the left atrium. LA Appendage: No EMELY thrombus seen. Right Atrium: The right atrium is normal in size. Atrial Septum: Saline contrast study positive for R to L shunt consistent with PFO. Thin and hypermobile atrial septum (but no atrial septal aneurysm). Mitral Valve: Normal appearance of the mitral valve. Trace mitral valve regurgitation. Aortic Valve: Trileaflet aortic valve. There is mild to moderate aortic valve regurgitation. Eccentric jet, directed into anterior mitral leaflet. No aortic stenosis. Tricuspid Valve: Normal appearance of the tricuspid valve. There is mild- moderate tricuspid regurgitation. Pulmonic Valve: Normal pulmonic valve appearance and function with trace (physiologic) regurgitation. Pericardium: Normal pericardium with no significant pericardial effusion. Aorta: Sinus of valsalva is moderately dilated. 4.4 cm. Ascending aorta is normal in size. CONCLUSIONS: 1. Normal global and regional left ventricular systolic function. Ejection Fraction is estimated to be 55-60 %. 2. Normal right ventricular size. Normal right ventricular systolic function. 3. Saline contrast study positive for R to L shunt consistent with PFO. Thin and hypermobile atrial septum (but no atrial septal aneurysm). 4. Trileaflet aortic valve. There is mild to moderate aortic valve regurgitation. Eccentric jet, directed into anterior mitral leaflet. No aortic stenosis. 5. Normal appearance of the tricuspid valve. There is mild-moderate tricuspid regurgitation. 6. Sinus of valsalva is moderately dilated. 4.4 cm. Ascending aorta is normal in size. 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 The procedure was monitored with automatic blood pressuremonitoring, ECG tracings, and pulse oximetry. Sedation was achieved by anesthesia usingPropofol IV. The transesophageal probe was placed in the esophagus posterior to the heartwithout any complications. The patient tolerated the procedure well. INDICATIONS: Aortic Valve Disease. MEASUREMENTS: 2D/MM Value Range Estimated EF 55-60 % AoR Diam 2D 4.20 cm [ 3.10 - 3.70 ] AoR Diam 2D Index 2.68 2D/MM Value Range - FINDINGS: BP: Blood pressure: 146/62 mmHg. Left Ventricle: Normal global and regional left ventricular systolicfunction. Ejection Fraction is estimated to be 55-60 %. Right Ventricle: Normal right ventricular size. Normal right ventricularsystolic function. Left Atrium: There is mild enlargement of the left atrium. LA Appendage: No EMELY thrombus seen. Right Atrium: The right atrium is normal in size. Atrial Septum: Saline contrast study positive for R to L shunt consistentwith PFO. Thin and hypermobile atrial septum (but no atrial septal aneurysm). Mitral Valve: Normal appearance of the mitral valve. Trace mitral valveregurgitation. Aortic Valve: Trileaflet aortic valve. There is mild to moderate aorticvalve regurgitation. Eccentric jet, directed into anterior mitral leaflet. Noaortic stenosis. Tricuspid Valve: Normal appearance of the tricuspid valve. There ismild-moderate tricuspid regurgitation. Pulmonic Valve: Normal pulmonic valve appearance and function with trace(physiologic) regurgitation. Pericardium: Normal pericardium with no significant pericardialeffusion. Aorta: Sinus of valsalva is moderately dilated. 4.4 cm. Ascending aorta isnormal in size. CONCLUSIONS: 1. Normal global and regional left ventricular systolic function. EjectionFraction is estimated to be 55-60 %. 2. Normal right ventricular size. Normal right ventricular systolicfunction. 3. Saline contrast study positive for R to L shunt consistent with PFO.Thin and hypermobile atrial septum (but no atrial septal aneurysm). 4. Trileaflet aortic valve. There is mild to moderate aortic valveregurgitation. Eccentric jet, directed into anterior mitral leaflet. No aorticstenosis. 5. Normal appearance of the tricuspid valve. There is mild-moderatetricuspid regurgitation. 6. Sinus of valsalva is moderately dilated. 4.4 cm. Ascending aorta isnormal in size. Electronically Signed By: Juanita De La Torre [facility] Card 01/12/2025 9:38:12 PM CDT us Juanita De La Torre MD CV ECHO PROCEDURES Final Result * CTA, Thoracic Aorta with Contrast and without is performed with Heart and Coronary Arteries (01/11/2025 6:00 PM CDT) Anatomical Region Laterality Modality Chest N/A Computed Tomogra phy 01/12/2025 7:08 AM CDT Impressions 01/12/2025 7:08 AM CDT 1. Dilated aortic root with maximal measurement of 4.3 x 4.3 x 4.0 cm which has increased when compared to 2012 when it measured 4.1 x 4.1 cm. 2. No pulmonary embolism or acute aortic syndrome. 3. Severe emphysema with no dominant bulla or bleb. 4. Only minimal atherosclerosis of the proximal left anterior descending coronary artery with stenosis of less than 30%. There is no obstructive coronary atherosclerosis. Electronically signed by: Vega Moura M.D. Narrative 01/12/2025 7:08 AM CDT Examination: CT angiogram of the chest and coronary arteries with and without intravenous contrast HISTORY: Severe aortic root enlargement on echo TECHNIQUE: Standard ECG gated CT angiogram of the coronary arteries and thoracic aorta was performed prior to and after the administration of 100 mL of Optiray 350 intravenous contrast. Images and 3-dimensional workstation for further evaluation. FINDINGS: Comparison is made to prior chest CT of 07/28/2011. No supraclavicular, axillary or mediastinal lymphadenopathy. No pleural or pericardial effusion. The heart size is at upper limit of normal. Note is made of thickening of the mitral and tricuspid valves in keeping with mild myxoid degeneration. There is no filling defect seen within the heart. The left atrial appendage is normal and there is no intracameral thrombus. No pleural or pericardial effusion. The aortic arch is left-sided with only minimal atherosclerosis of the origin of the left clavian artery. The lung windows show severe emphysema with an apical predominance but no dominant bulla or bleb. Again seen is biapical pleural-parenchymal scarring. There is no noncalcified nodule seen. Mild bronchial wall thickening is in keeping with bronchitis and bronchiolitis. The patient has codominant coronary arteries. The calcium score is 1.4 placing the patient at less than 25% risk for age. The right coronary artery, circumflex coronary artery, left main coronary artery and ramus intermedius are normal in caliber without atherosclerosis. Very minimal calcified plaque is seen within the proximal left anterior descending coronary artery with less than 30% stenosis. There is a small myocardial bridge of the mid left anterior descending coronary artery. There is also a wraparound component to the left anterior descending coronary artery. The posterior descending coronary artery is not well formed. Images of the upper abdomen show flash filling hemangiomas of the liver and a replaced left hepatic artery. Renal cysts are seen but there is no hydronephrosis. The aorta is again noted to be mildly enlarged but there is no evidence for an acute aortic syndrome. The following measurements are obtained orthogonal to the long axis: 1. Sinuses of Valsalva 4.3 x 4.3 x 4.0 cm. Previously they measured 4.1 x 4.1 cm 2. Sinotubular junction 4 x 4 centimeters. 3. Ascending aorta at the level of the main pulmonary artery 3.7 x 3.7 cm. 4. Descending thoracic aorta 2.8 x 2.8 cm at the level of the left inferior pulmonary vein. The bone windows do not demonstrate any osseous lesion. Degenerative changes are seen throughout the lower cervical and gastric spine. Procedure Note Vega Moura MD - 01/12/2025 Examination: CT angiogram of the chest and coronary arteries with and without intravenous contrast HISTORY: Severe aortic root enlargement on echo TECHNIQUE: Standard ECG gated CT angiogram of the coronary arteries and thoracic aorta was performed prior to and after the administration of 100 mL of Optiray 350 intravenous contrast. Images and 3-dimensional workstation for further evaluation. FINDINGS: Comparison is made to prior chest CT of 07/28/2011. No supraclavicular, axillary or mediastinal lymphadenopathy. No pleural or pericardial effusion. The heart size is at upper limit of normal. Note is made of thickening of the mitral and tricuspid valves in keeping with mild myxoid degeneration. There is no filling defect seen within the heart. The left atrial appendage is normal and there is no intracameral thrombus. No pleural or pericardial effusion. The aortic arch is left-sided with only minimal atherosclerosis of the origin of the left clavian artery. The lung windows show severe emphysema with an apical predominance but no dominant bulla or bleb. Again seen is biapical pleural-parenchymal scarring. There is no noncalcified nodule seen. Mild bronchial wall thickening is in keeping with bronchitis and bronchiolitis. The patient has codominant coronary arteries. The calcium score is 1.4 placing the patient at less than 25% risk for age. The right coronary artery, circumflex coronary artery, left main coronary artery and ramus intermedius are normal in caliber without atherosclerosis. Very minimal calcified plaque is seen within the proximal left anterior descending coronary artery with less than 30% stenosis. There is a small myocardial bridge of the mid left anterior descending coronary artery. There is also a wraparound component to the left anterior descending coronary artery. The posterior descending coronary artery is not well formed. Images of the upper abdomen show flash filling hemangiomas of the liver and a replaced left hepatic artery. Renal cysts are seen but there is no hydronephrosis. The aorta is again noted to be mildly enlarged but there is no evidence for an acute aortic syndrome. The following measurements are obtained orthogonal to the long axis: 1. Sinuses of Valsalva 4.3 x 4.3 x 4.0 cm. Previously they measured 4.1 x 4.1 cm 2. Sinotubular junction 4 x 4 centimeters. 3. Ascending aorta at the level of the main pulmonary artery 3.7 x 3.7 cm. 4. Descending thoracic aorta 2.8 x 2.8 cm at the level of the left inferior pulmonary vein. The bone windows do not demonstrate any osseous lesion. Degenerative changes are seen throughout the lower cervical and gastric spine. IMPRESSION: 1. Dilated aortic root with maximal measurement of 4.3 x 4.3 x 4.0 cm which has increased when compared to 2012 when it measured 4.1 x 4.1 cm. 2. No pulmonary embolism or acute aortic syndrome. 3. Severe emphysema with no dominant bulla or bleb. 4. Only minimal atherosclerosis of the proximal left anterior descending coronary artery with stenosis of less than 30%. There is no obstructive coronary atherosclerosis. Electronically signed by: Vega Moura M.D. 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 INDICATIONS: Cerebrovascular accident. MEASUREMENTS: 2D/MM Value Range Doppler Value Range IVSd 2D 1.04 cm [ 0.60 - 1.00 ] AV Peak Bhupinder 0.95 m/s [ 1.00 - 1.70 ] LVIDd 2D 3.84 cm [ 4.20 - 5.80 ] AV Peak PG 3.6 mmHg LVIDs 2D 2.52 cm [ 2.50 - 4.00 ] AV Mean PG 1.9 mmHg LVPWd 2D 1.12 cm [ 0.60 - 1.00 ] AV VTI 17.4 cm Estimated EF 55-60 % SAMANTHA V max 2.8 cm2 LA Dimension 2D 2.24 cm [ 3.00 - 4.00 ] SAMANTHA VTI 2.6 cm2 AoR Diam 2D 4.80 cm [ 3.10 - 3.70 ] LVOT Peak Bhupinder 0.95 m/s [ 0.70 - 1.10 ] AoR Diam 2D Index 3.06 LVOT Diam 1.9 cm RA Volume 47.00 ml LVOT Peak PG 3.6 mmHg TAPSE 2.27 cm [ 1.71 - 5.00 ] LVOT VTI 16.2 cm MV Peak PG 1.2 mmHg MV Mean PG 0.8 mmHg MV E Peak Bhupinder 0.4 m/s [ 0.6 - 1.3 ] MV A Peak Bhupinder 0.5 m/s [ 1.0 - 1.2 ] MV PHT 101.7 ms [ 20.0 - 100.0 ] MV Decel Time 270.2 ms [ 104.0 - 258.0 ] MVA PHT 2.2 ms MV E/A Ratio 0.8 TR Peak Bhupinder 2.9 m/s [ 1.0 - 2.8 ] TR Peak PG 33 mmHg RVSP 35.9 mmHg [ 10.0 - 36.0 ] RA Pressure 3.0 mmHg PV Peak Bhupinder 0.8 m/s [ 0.4 - 0.8 ] PV Peak PG 2.6 mmHg Lat E` Bhupinder 0.10 m/s [ 0.10 - 0.15 ] Sept E' Bhupinder 0.08 m/s [ 0.08 - 0.15 ] E/E` 4.00 RV S' 0.21 m/s 2D/MM Value Range Doppler Value Range - FINDINGS: BP: Blood pressure: 119/71 mmHg. Left Ventricle: Normal global and regional left ventricular systolic function. Ejection Fraction is estimated at 55-60 %. Diastolic indices overall most consistent with Grade I diastolic dysfunction (impaired myocardial relaxation without elevated filling pressures). The left ventricular cavity is low normal in size. Mild concentric left ventricular hypertrophy. Right Ventricle: Normal right ventricular systolic function. Normal right ventricular size. Left Atrium: The left atrium is normal in size. Right Atrium: There is mild enlargement of the right atrium. Atrial Septum: Atrial septum color Doppler interrogation consistent with a PFO. Saline contrast study positive for R to L shunt consistent with PFO. Mitral Valve: Normal appearance of the mitral valve leaflets. Mitral stenosis is absent. Mild mitral valve regurgitation. Aortic Valve: Aortic valve appears tricuspid in configuration. Aortic cusps appear mildly calcified. Aortic valve cusps appear minimally sclerotic. There is no aortic stenosis. At least moderate eccentric aortic valve regurgitation; consider advanced imaging to quantify severity of AV disease if clinicaly indicated. Tricuspid Valve: Normal appearance of the tricuspid leaflets. Moderate to severe tricuspid regurgitation. Unable to assess RVSP in the setting of severe TV disease. Pulmonic Valve: Grossly normal appearing pulmonic valve. Pulmonic valve not well visualized. There is no pulmonic stenosis. Moderate pulmonic regurgitation. Pericardium: Normal appearing pericardial thickness. No significant pericardial effusion. Aortic Root and Aorta: Severe aortic root enlargement (4.8cm at SoV); consider CTA to better assess aortic root/asc ao dimensions given limited views in the current study. Mild ascending aortic enlargement (3.8 cm). Aortic Arch: The aortic arch is poorly visualized. IVC: Normal appearance of the inferior vena cava. CONCLUSIONS: 1. Normal global and regional left ventricular systolic function. Ejection Fraction is estimated at 55-60 %. Diastolic indices overall most consistent with Grade I diastolic dysfunction (impaired myocardial relaxation without elevated filling pressures). The left ventricular cavity is low normal in size. Mild concentric left ventricular hypertrophy. 2. Normal right ventricular systolic function. Normal right ventricular size. 3. Atrial septum color Doppler interrogation consistent with a PFO. Saline contrast study positive for R to L shunt consistent with PFO. 4. Normal appearance of the mitral valve leaflets. Mitral stenosis is absent. Mild mitral valve regurgitation. 5. Aortic valve appears tricuspid in configuration. Aortic cusps appear mildly calcified. Aortic valve cusps appear minimally sclerotic. There is no aortic stenosis. At least moderate eccentric aortic valve regurgitation; consider advanced imaging to quantify severity of AV disease if clinicaly indicated. 6. Normal appearance of the tricuspid leaflets. Moderate to severe tricuspid regurgitation. Unable to assess RVSP in the setting of severe TV disease. 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 INDICATIONS: Cerebrovascular accident. MEASUREMENTS: 2D/MM Value Range Doppler ValueRange IVSd 2D 1.04 cm [ 0.60 - 1.00 ] AV Peak Bhupinder 0.95m/s [ 1.00 - 1.70 ] LVIDd 2D 3.84 cm [ 4.20 - 5.80 ] AV Peak PG 3.6mmHg LVIDs 2D 2.52 cm [ 2.50 - 4.00 ] AV Mean PG 1.9mmHg LVPWd 2D 1.12 cm [ 0.60 - 1.00 ] AV VTI 17.4cm Estimated EF 55-60 % SAMANTHA V max 2.8cm2 LA Dimension 2D 2.24 cm [ 3.00 - 4.00 ] SAMANTHA VTI 2.6cm2 AoR Diam 2D 4.80 cm [ 3.10 - 3.70 ] LVOT Peak Bhupinder 0.95m/s [ 0.70 - 1.10 ] AoR Diam 2D Index 3.06 LVOT Diam 1.9cm RA Volume 47.00 ml LVOT Peak PG 3.6mmHg TAPSE 2.27 cm [ 1.71 - 5.00 ] LVOT VTI 16.2cm MV Peak PG 1.2 mmHg MV Mean PG 0.8 mmHg MV E Peak Bhupinder 0.4 m/s [ 0.6 - 1.3 ] MV A Peak Bhupinder 0.5 m/s [ 1.0 - 1.2 ] MV PHT 101.7 ms [ 20.0 - 100.0 ] MV Decel Time 270.2 ms [ 104.0 - 258.0 ] MVA PHT 2.2 ms MV E/A Ratio 0.8 TR Peak Bhupinder 2.9 m/s [ 1.0 - 2.8 ] TR Peak PG 33 mmHg RVSP 35.9 mmHg [ 10.0 - 36.0 ] RA Pressure 3.0 mmHg PV Peak Bhupinder 0.8 m/s [ 0.4 - 0.8 ] PV Peak PG 2.6 mmHg Lat E` Bhupinder 0.10 m/s [ 0.10 - 0.15 ] Sept E' Bhupinder 0.08 m/s [ 0.08 - 0.15 ] E/E` 4.00 RV S' 0.21 m/s 2D/MM Value Range Doppler ValueRange - FINDINGS: BP: Blood pressure: 119/71 mmHg. Left Ventricle: Normal global and regional left ventricular systolicfunction. Ejection Fraction is estimated at 55-60 %. Diastolic indices overall mostconsistent with Grade I diastolic dysfunction (impaired myocardial relaxation without elevatedfilling pressures). The left ventricular cavity is low normal in size. Mildconcentric left ventricular hypertrophy. Right Ventricle: Normal right ventricular systolic function. Normal rightventricular size. Left Atrium: The left atrium is normal in size. Right Atrium: There is mild enlargement of the right atrium. Atrial Septum: Atrial septum color Doppler interrogation consistent with aPFO. Saline contrast study positive for R to L shunt consistent with PFO. Mitral Valve: Normal appearance of the mitral valve leaflets. Mitralstenosis is absent. Mild mitral valve regurgitation. Aortic Valve: Aortic valve appears tricuspid in configuration. Aorticcusps appear mildly calcified. Aortic valve cusps appear minimally sclerotic. There is noaortic stenosis. At least moderate eccentric aortic valve regurgitation; consider advancedimaging to quantify severity of AV disease if clinicaly indicated. Tricuspid Valve: Normal appearance of the tricuspid leaflets. Moderate tosevere tricuspid regurgitation. Unable to assess RVSP in the setting of severe TVdisease. Pulmonic Valve: Grossly normal appearing pulmonic valve. Pulmonic valvenot well visualized. There is no pulmonic stenosis. Moderate pulmonicregurgitation. Pericardium: Normal appearing pericardial thickness. No significantpericardial effusion. Aortic Root and Aorta: Severe aortic root enlargement (4.8cm at SoV);consider CTA to better assess aortic root/asc ao dimensions given limited views in thecurrent study. Mild ascending aortic enlargement (3.8 cm). Aortic Arch: The aortic arch is poorly visualized. IVC: Normal appearance of the inferior vena cava. CONCLUSIONS: 1. Normal global and regional left ventricular systolic function. EjectionFraction is estimated at 55-60 %. Diastolic indices overall most consistent with GradeI diastolic dysfunction (impaired myocardial relaxation without elevated fillingpressures). The left ventricular cavity is low normal in size. Mild concentric left ventricularhypertrophy. 2. Normal right ventricular systolic function. Normal right ventricularsize. 3. Atrial septum color Doppler interrogation consistent with a PFO. Salinecontrast study positive for R to L shunt consistent with PFO. 4. Normal appearance of the mitral valve leaflets. Mitral stenosis isabsent. Mild mitral valve regurgitation. 5. Aortic valve appears tricuspid in configuration. Aortic cusps appearmildly calcified. Aortic valve cusps appear minimally sclerotic. There is no aorticstenosis. At least moderate eccentric aortic valve regurgitation; consider advanced imagingto quantify severity of AV disease if clinicaly indicated. 6. Normal appearance of the tricuspid leaflets. Moderate to severetricuspid regurgitation. Unable to assess RVSP in the setting of severe TVdisease. Electronically Signed By: Arnoldo Sanchez MD PhD 01/11/2025 1:03:44 PM CDT Amparo Tariq MD CV ECHO PROCEDURES Final Resu lt * POCT glucose (01/11/2025 8:07 AM CDT) [facility] Signature Glucose, POC 93 70 - 199 mg/dL Comment: For Glucose values <35 mg/dl when Hematocrit is >60 mg/dl,the test may not accurately detect significant hypoglycemia,and testing in the Laboratory should be considered if clinically indicated. POC Performer [phone] [facility] Blood 01/11/2025 8:07 AM CDT 01/11/2025 8:07 AM CDT Reg Kitchen MD LAB POCT ORDERABLES - DEVICE Final Result [facility] [address] Department [place] [address] * US CAROTIDS (01/10/2025 4:24 PM CDT) Anatomical Region Laterality Modality Vascular Bilateral Ultrasound 01/10/2025 4:29 PM CDT Impressions 01/10/2025 4:29 PM CDT 1) Very minimal isolated plaque is seen in the right external carotid artery with relatively normal velocities and flow throughout the right carotid system. On the left side there is a softer diffuse plaque in the distal common and at the bifurcation and at the bulb. This is non-hemodynamic plaque with normal velocities and flow throughout the left carotid system. 2) Vertebral arteries demonstrate antegrade flow on the right, and antegrade flow on the left. 3) No comparison available. The estimated degree of stenosis of the internal carotid arteries reported on this examination is based on the diagnostic criteria proposed by the Society of Radiologists in Ultrasound (SRU) Consensus Conference. Electronically signed by: Jerardo Quintero M.D. Narrative 01/10/2025 4:29 PM CDT DATE:01/10/2025 6:05 AM EXAM: Duplex imaging of the carotid arteries. INDICATION: Stroke bilateral carotid stenosis. COMPARISON STUDY DATE: None available IMAGE QUALITY: Good FINDINGS: RIGHT SIDE: B/P: Not record Right: B-mode imaging demonstrates dense plaque morphology in the right common carotid artery. The right common carotid artery peak systolic velocity is 113 cm/sec. B-mode imaging demonstrates dense plaque morphology in the right internal carotid artery. The right internal carotid artery peak systolic velocity is 91 cm/ sec. The end diastolic velocity is 27. The right internal carotid artery to common carotid artery ratio is 0.8. The right external carotid artery peak systolic velocity is 93 cm/sec. The right vertebral artery demonstrates antegrade flow. Incidental findings: None LEFT SIDE: B/P: 131 Left: B-mode imaging demonstrates soft complex plaque morphology in the left common carotid artery. The left common carotid artery peak systolic velocity is 95 cm/sec. B-mode imaging demonstrates complex plaque morphology in the left internal carotid artery.The left internal carotid artery peak systolic velocity is 92 cm/ sec. The end diastolic velocity is 37. The left internal carotid artery to common carotid artery ratio is 1. The left external carotid artery peak systolic velocity is 82 cm/sec. The left vertebral artery demonstrates antegrade flow. Incidental findings:None Procedure Note Jerardo Quintero MD - 01/10/2025 DATE:01/10/2025 6:05 AM EXAM: Duplex imaging of the carotid arteries. INDICATION: Stroke bilateral carotid stenosis. COMPARISON STUDY DATE: None available IMAGE QUALITY: Good FINDINGS: RIGHT SIDE: B/P: Not record Right: B-mode imaging demonstrates dense plaque morphology in the right common carotid artery. The right common carotid artery peak systolic velocity is 113 cm/sec. B-mode imaging demonstrates dense plaque morphology in the right internal carotid artery. The right internal carotid artery peak systolic velocity is 91 cm/ sec. The end diastolic velocity is 27. The right internal carotid artery to common carotid artery ratio is 0.8. The right external carotid artery peak systolic velocity is 93 cm/sec. The right vertebral artery demonstrates antegrade flow. Incidental findings: None LEFT SIDE: B/P: 131 Left: B-mode imaging demonstrates soft complex plaque morphology in the left common carotid artery. The left common carotid artery peak systolic velocity is 95 cm/sec. B-mode imaging demonstrates complex plaque morphology in the left internal carotid artery.The left internal carotid artery peak systolic velocity is 92 cm/ sec. The end diastolic velocity is 37. The left internal carotid artery to common carotid artery ratio is 1. The left external carotid artery peak systolic velocity is 82 cm/sec. The left vertebral artery demonstrates antegrade flow. Incidental findings:None IMPRESSION: 1) Very minimal isolated plaque is seen in the right external carotid artery with relatively normal velocities and flow throughout the right carotid system. On the left side there is a softer diffuse plaque in the distal common and at the bifurcation and at the bulb. This is non-hemodynamic plaque with normal velocities and flow throughout the left carotid system. 2) Vertebral arteries demonstrate antegrade flow on the right, and antegrade flow on the left. 3) No comparison available. The estimated degree of stenosis of the internal carotid arteries reported on this examination is based on the diagnostic criteria proposed by the Society of Radiologists in Ultrasound (SRU) Consensus Conference. Electronically signed by: Jerardo Quintero M.D. us Amparo Tariq MD [facility] US PROCEDURES Final Resul t * eGFR (01/10/2025 5:19 AM CDT) eGFR >90 >=60 mL/min/1. 73 m2 Comment: Interpretive Data Reference Interval Normal >/= 90 mL/min/1.73m2 Mildly decreased* 60 - 89 mL/min/1.73m2 Mildly to moderately decreased 45 - 59 mL/min/1.73m2 Moderately to severely decreased 30 - 44 mL/min/1.73m2 Severely decreased 15 - 29 mL/min/1.73m2 Kidney Failure < 15 mL/min/1.73m2 *Relative to young adult level Estimated glomerular filtration rate is determined by the 2020 CKD-EPI equation recommended by the National Kidney Foundation (A Unifying Approach to GFR Estimation: Recommendations of the NKF-ASK Task Force on Reassessing the Inclusion of Race in Diagnosing Kidney Disease, JASN 2020). The CKD-EPI equation should not be used for patients with unstable renal function and has not been validated in children and those over 70. Current interpretive data was last reviewed 2021. Blood 01/10/2025 5:19 AM CDT 01/10/2025 5:26 AM CDT Amparo Tariq MD LAB BLOOD ORDERABLES Final Re sult Performing Organization Address [facility] Co de Phone Number [facility] [address] [place] [address] * Hemoglobin A1c (01/10/2025 5:19 AM CDT) Hgb A1C 5.6 4.0 - 5.6 % Estimated Average Glucose 114 mg/dL [facility] Comment: The ADA recommends reporting an estimated Average Glucose (eAG) with all Hemoglobin A1c results using the equation derived from a study of 507 normal and diabetic adults. Minority populations were underrepresented and children were not included. (Diabetes Care 31:0365-4939, 2008). The eAG is not equivalent to a fasting glucose. Blood 01/10/2025 5:19 AM CDT 01/10/2025 5:27 AM CDT Amparo Tariq MD LAB BLOOD ORDERABLES Final Re sult Performing Organization Address City/[facility]/ZIP Co de Phone Number [facility] [address] [place] [address] * Lipid panel (01/10/2025 5:19 AM CDT) Cholesterol 184 30 - 199 mg/dL Comment: Interpretive Data Ages < or = 19 years Acceptable: <170 mg/dL Borderline high: 170-199 mg/dL High: >or= 200 mg/dL Ages > or = 20 years Desirable: <200 mg/dL Borderline high: 200-239 mg/dL High: >or= 240 mg/dL Literature References: 1. Expert Panel on Integrated Guidelines for Cardiovascular Health and Risk Reduction in Children and Adolescents. Pediatrics 2011;128:S213 2. NCEP Expert Panel. Circulation 2004;110:227 Current Interpretive Data was last revised on 2018. Triglycerides 106 <=149 mg/dL [facility] Comment: Interpretive Data Ages < or = 9 years Acceptable: <75 mg/dL Borderline high: 75-99 mg/dL High: >or= 100 mg/dL Ages 10 to 20 years Acceptable: <90 mg/dL Borderline high: 90-129 mg/dL High: >or= 130 mg/dL Ages > or = 20 years Desirable: <150 mg/dL Borderline high: 150-199 mg/dL High: 200-499 mg/dL Very high: >or= 499 mg/dL Literature References: 1. Expert Panel on Integrated Guidelines for Cardiovascular Health and Risk Reduction in Children and Adolescents. Pediatrics 2011;128:S213 2. NCEP Expert Panel. Circulation 2004;110:227 Current Interpretive Data was last revised on 2018. HDL 41 >=40 mg/dL [facility] Comment: Interpretive Data Ages < or = 19 years Acceptable: >45 mg/dL Borderline low: 40-45 mg/dL Low: <40 mg/dL Ages > or = 20 years Desirable: >or= 60 mg/dL Low: <40 mg/dL Literature References: 1. Expert Panel on Integrated Guidelines for Cardiovascular Health and Risk Reduction in Children and Adolescents. Pediatrics 2011;128:S213 2. NCEP Expert Panel. Circulation 2004;110:227 Current Interpretive Data was last revised on 2018. LDL, calculated 124 <=129 mg/dL [facility] Comment: Interpretive Data Ages < or = 19 years Acceptable: <110 mg/dL Borderline high: 110-129 mg/dL High: >or= 130 mg/dL Ages > or = 20 years Optimal: <100 mg/dL Near optimal: 100-129 mg/dL Borderline high: 130-159 mg/dL High: >160 mg/dL Calculated using the Kelly LDL-C estimating equation. This equation was implemented on 2024. Prior to this date LDL-C was estimated using the Friedewald equation. Literature References: 1. Expert Panel on Integrated Guidelines for Cardiovascular Health and Risk Reduction in Children and Adolescents. Pediatrics 2011;128:S213 2. NCEP Expert Panel. Circulation 2004;110:227 3. Robin Wood et al. OSCAR Cardiol. 2019November 12;5(5):540-548. doi: [email or web address] Current Interpretive Data was last revised on 2024. Non-HDL Cholesterol 143 mg/dL [facility] Comment: Interpretive Data Ages < or = 19 years Acceptable: <120 mg/dL Borderline high: 120-144 mg/dL High: >145 mg/dL Ages > or = 20 years When triglycerides are >200 mg/dL, Non-HDL cholesterol is a secondary target of therapy with treatment goals that are 30 mg/dL greater than the LDL cholesterol target. Literature References: 1. Expert Panel on Integrated Guidelines for Cardiovascular Health and Risk Reduction in Children and Adolescents. Pediatrics 2011;128:S213 2. NCEP Expert Panel. Circulation 2004;110:227 Current Interpretive Data was last revised on 2018. Chol/HDL ratio 4 [facility] Blood 01/10/2025 5:19 AM CDT 01/10/2025 5:26 AM CDT us Amparo Tariq MD LAB BLOOD ORDERABLES Final Re sult [facility] [address] Department [place] [address] * (ABNORMAL) Comprehensive metabolic panel (01/10/2025 5:19 AM CDT) Sodium 138 135 - 145 mmol/L Potassium, pl 3.8 3.3 - 4.9 mmol/L [facility] Chloride 101 97 - 110 mmol/L [facility] CO2 25 22 - 32 mmol/L [facility] Anion gap 12 2 - 15 mmol/L [facility] BUN 12 6 - 25 mg/dL [facility] Creatinine 0.80 0.80 - 1.30 mg/dL [facility] Glucose 82 70 - 199 mg/dL [facility] Comment: Interpretive Data Fasting glucose >/= 126 mg/dl is diagnostic for diabetes. Fasting is defined as no caloric intake for at least 8 hours. Fasting glucose between 100 mg/dl to 125 mg/dl is diagnostic of prediabetes. In a patient with classic symptoms of hyperglycemia or hyperglycemic crisis, a random glucose >/= 200 mg/dl is diagnostic for diabetes. In the absence of unequivocal hyperglycemia, results should be confirmed by repeat testing. The classification and Diagnosis of Diabetes Diabetes Care 2021; 46: S19-S40. Current interpretive data was last revised 2022. Calcium 9.4 8.5 - 10.3 mg/dL [facility] Bilirubin, total 0.4 0.1 - 1.2 mg/dL [facility] Protein, pl 6.7 6.5 - 8.5 g/dL [facility] Albumin 3.6 3.5 - 5.0 g/dL [facility] Alk phos 72 40 - 130 Units/L [facility] ALT 6(L) 7 - 55 Units/L [facility] AST 18 10 - 50 Units/L [facility] Blood 01/10/2025 5:19 AM CDT 01/10/2025 5:26 AM CDT us Amparo Tariq MD LAB BLOOD ORDERABLES Final Re sult [facility] [address] [place] [address] * MRI Brain W WO Contrast (01/09/2025 5:28 PM CDT) Anatomical Region Laterality Modality Head and Neck N/A Magnetic Resonan ce 01/09/2025 4:35 PM CDT Impressions 01/10/2025 11:54 AM CDT 1. Right frontoparietal small subcortical acute infarct. 2. No other acute intracranial abnormality or abnormal enhancement. For the purposes of manufacturing quality engineer, this study was initially interpreted by teleradiology. There is no significant discrepancy. Electronically signed by: Sky Coffey M.D. Narrative 01/10/2025 11:54 AM CDT MRI BRAIN W WO CONTRAST 01/09/2025 4:15 PM CLINICAL INDICATION: Transient ischemic attack (TIA). COMPARISON: CTA head and neck dated 01/09/2025. TECHNIQUE: Multiplanar multisequence MRI of the brain was performed without and with contrast. 10 mL of gadoterate meglumine was administered intravenously. FINDINGS: There is a right frontoparietal subcortical small acute infarct that measures approximately 10 x 5 mm. There is corresponding loss of ADC and mild increased FLAIR signal. There are no abnormal areas of enhancement. The ventricles and cortical sulci are stable in size and configuration. There is no mass/mass effect or midline shift. Multiple small subcortical and periventricular FLAIR/T2 signal intensities likely represent microvascular ischemic white matter change. There is a small round focus of susceptibility artifact in the anterior left frontal region that may represent chronic microhemorrhage. The basal cisterns are patent. The sellar and suprasellar structures are normal. There is preservation of normal flow voids in the major intracranial vessels. There are small cerebellar chronic infarcts bilaterally. There are no acute findings in the posterior fossa. There is trace right maxillary sinus mucosal thickening. The mastoid air cells are clear. The orbits are normal. There is partial visualization of cervical spondylosis, as well as postsurgical change posteriorly at C3-C4. Procedure Note Sky Coffey MD - 01/10/2025 MRI BRAIN W WO CONTRAST 01/09/2025 4:15 PM CLINICAL INDICATION: Transient ischemic attack (TIA). COMPARISON: CTA head and neck dated 01/09/2025. TECHNIQUE: Multiplanar multisequence MRI of the brain was performed without and with contrast. 10 mL of gadoterate meglumine was administered intravenously. FINDINGS: There is a right frontoparietal subcortical small acute infarct that measures approximately 10 x 5 mm. There is corresponding loss of ADC and mild increased FLAIR signal. There are no abnormal areas of enhancement. The ventricles and cortical sulci are stable in size and configuration. There is no mass/mass effect or midline shift. Multiple small subcortical and periventricular FLAIR/T2 signal intensities likely represent microvascular ischemic white matter change. There is a small round focus of susceptibility artifact in the anterior left frontal region that may represent chronic microhemorrhage. The basal cisterns are patent. The sellar and suprasellar structures are normal. There is preservation of normal flow voids in the major intracranial vessels. There are small cerebellar chronic infarcts bilaterally. There are no acute findings in the posterior fossa. There is trace right maxillary sinus mucosal thickening. The mastoid air cells are clear. The orbits are normal. There is partial visualization of cervical spondylosis, as well as postsurgical change posteriorly at C3-C4. IMPRESSION: 1. Right frontoparietal small subcortical acute infarct. 2. No other acute intracranial abnormality or abnormal enhancement. For the purposes of manufacturing quality engineer, this study was initially interpreted by teleradiology. There is no significant discrepancy. Electronically signed by: Sky Coffey M.D. Ruby Thompson NP IMG MRI PROCEDURES Final Result * MRI Lumbar Spine W WO Contrast (01/09/2025 5:28 PM CDT) Anatomical Region Laterality Modality Spine N/A Magnetic Resonan ce 01/09/2025 4:35 PM CDT Impressions 01/10/2025 11:54 AM CDT 1. Multilevel lumbar spondylosis. 2. Moderate to severe right neural foraminal stenosis at L5-S1. 3. No high-grade central stenosis. 4. Partial visualization of incidental right hepatic lesion, which could represent a cyst or hemangioma. Dedicated CT can be performed for further evaluation. For the purposes of manufacturing quality engineer, this study was initially interpreted by teleradiology. There is no significant discrepancy. Electronically signed by: Sky Coffey M.D. Narrative 01/10/2025 11:54 AM CDT MRI LUMBAR SPINE W WO CONTRAST 01/09/2025 4:10 PM CLINICAL INDICATION: Myelopathy, acute, lumbar spine. COMPARISON: None. TECHNIQUE: Multiplanar multisequence MRI of the lumbar spine was performed without and with contrast. 10 mL of gadoterate meglumine was administered intravenously. FINDINGS: There is preservation of normal vertebral body alignment. There is no compression deformity or acute marrow signal abnormality. Loss of disc space height is most pronounced at L1-L2. There is a small annular fissure at L3-L4. The prevertebral soft tissues are normal. There is mild elevation of the right hemidiaphragm. There are renal cysts bilaterally. There is partial visualization of a T2 bright structure in the right hepatic lobe that may represent a cyst or hemangioma; there may be enhancement on the postcontrast sequence. There are no acute findings in the visualized abdomen. The conus is in normal in appearance and terminates at L1. There is no abnormal enhancement along the nerve roots. There is multilevel lumbar spondylosis. For example, there are small disc bulges at L1-L2 through L5-S1. There is mild ligamentous thickening and facet degenerative change at multiple levels. There is no high-grade central stenosis. There is moderate to severe right neural foraminal narrowing at L5-S1. The visualized sacrum and bony pelvis are intact. Procedure Note Sky Coffey MD - 01/10/2025 MRI LUMBAR SPINE W WO CONTRAST 01/09/2025 4:10 PM CLINICAL INDICATION: Myelopathy, acute, lumbar spine. COMPARISON: None. TECHNIQUE: Multiplanar multisequence MRI of the lumbar spine was performed without and with contrast. 10 mL of gadoterate meglumine was administered intravenously. FINDINGS: There is preservation of normal vertebral body alignment. There is no compression deformity or acute marrow signal abnormality. Loss of disc space height is most pronounced at L1-L2. There is a small annular fissure at L3-L4. The prevertebral soft tissues are normal. There is mild elevation of the right hemidiaphragm. There are renal cysts bilaterally. There is partial visualization of a T2 bright structure in the right hepatic lobe that may represent a cyst or hemangioma; there may be enhancement on the postcontrast sequence. There are no acute findings in the visualized abdomen. The conus is in normal in appearance and terminates at L1. There is no abnormal enhancement along the nerve roots. There is multilevel lumbar spondylosis. For example, there are small disc bulges at L1-L2 through L5-S1. There is mild ligamentous thickening and facet degenerative change at multiple levels. There is no high-grade central stenosis. There is moderate to severe right neural foraminal narrowing at L5-S1. The visualized sacrum and bony pelvis are intact. IMPRESSION: 1. Multilevel lumbar spondylosis. 2. Moderate to severe right neural foraminal stenosis at L5-S1. 3. No high-grade central stenosis. 4. Partial visualization of incidental right hepatic lesion, which could represent a cyst or hemangioma. Dedicated CT can be performed for further evaluation. For the purposes of manufacturing quality engineer, this study was initially interpreted by teleradiology. There is no significant discrepancy. Electronically signed by: Sky Coffey M.D. Ruby Thompson NP IMG MRI PROCEDURES Final Result * Troponin T high-sensitivity 2-hour (01/09/2025 3:33 PM CDT) Trop T hs 15 <=22 ng/L Comment: Interpretive Data For further hscTnT resources including the diagnostic algorithm and an aid in interpretation, copy and paste this link: https://nrl.testcatalog.org/show/hsTrop Current Interpretive Data last revised 2020. Trop T hs delta See Comment ng/L [facility] Comment:Inappropriate collec tion time to report a delta. Trop T hs pct delta See Comment % [facility] Comment:Inappropriate collec tion time to report a delta. Trop T hs interp See Comment [facility] Comment:Inappropriate collec tion time to report a delta. Blood 01/09/2025 3:33 PM CDT 01/09/2025 3:38 PM CDT Ruby Thompson NP LAB BLOOD ORDERABLES Fin al Result [facility] [address] [place] [address] * Urinalysis reflex to microscopic and culture Urine (01/09/2025 3:33 PM CDT) Color, ur Yellow Yellow Clarity, ur Clear Clear [facility] Specific gravity, ur 1.030 1.003 - 1.030 [facility] pH, urine 6.5 [facility] Comment: Interpretive Data U rine pH is affected by diet, medications, systemic acid-base disturbances, and renal tubular function. pH may affect urinary stone formation. For example, urine pH below 6.0 may help reduce the tendency for calcium phosphate stones and pH greater than 6.0 may reduce the tendency for uric acid stone formation. Source: [facility] Current Interpretive Data was last revised on 2017 Protein, ur ql Negative Negative [facility] Glucose, ur ql Negative Negative [facility] Ketones, ur Negative Negative [facility] Bilirubin, ur Negative Negative [facility] Blood, ur Negative Negative [facility] Urobilinogen, ur <2.0 <2.0 mg/dL [facility] Nitrite, ur Negative Negative [facility] Leukocyte esterase, ur Negative Negative [facility] UA reflex comment Reflex conditions for microscopic UA and culture not met. [facility] Urine 01/09/2025 3:33 PM CDT 01/09/2025 3:38 PM CDT Ruby Thompson NP LAB MICROBIOLOGY - [facility] AL ORDERABLES Final Result [facility] [address] [place] [address] * CTA Head Neck W WO Contrast (01/09/2025 1:35 PM CDT) Anatomical Region Laterality Modality Head and Neck N/A Computed Tomogra phy 01/09/2025 2:53 PM CDT Impressions 01/09/2025 7:26 PM CDT 1. No acute intracranial hemorrhage, significant mass effect, or midline shift. 2. 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 3. No large arterial occlusion or significant stenoses in the head or neck. 4. Advanced multilevel bilateral neural foraminal stenosis in the cervical spine with postsurgical changes from posterior decompression at C3-C4. Dictated by: Gisell Pratt, The radiology attending physician has personally reviewed this study, and had reviewed and/or edited this written report and agrees with it. Electronically signed by: Brian Beach MD, PHD Narrative 01/09/2025 7:26 PM CDT EXAMINATION: 1. Computed tomography angiography (CTA) of the head without and with contrast 2. Computed tomography angiography (CTA) of the neck with contrast HISTORY: 74-year-old male with left lower extremity weakness for a little over 24 hours TECHNIQUE: CT of the head was performed with images acquired from skull base to vertex without intravenous contrast. Computed tomographic angiography was obtained from the aortic arch to the vertex following the uneventful administration of intravenous contrast. 3D images of the CTA were generated on a dedicated workstation/bistro server. Contrast information: 70 mL Optiray-350 IV COMPARISON: MRI cervical spine dated 07/18/2012 FINDINGS: HEAD: There is no acute intracranial hemorrhage. 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 Mild generalized parenchymal volume loss with mild ex vacuo ventricular dilation. No mass effect or midline shift is present. Patchy periventricular and subcortical white matter hypoattenuation is nonspecific but may represent chronic small vessel changes. The church-white matter differentiation is preserved. Atherosclerotic calcification of the carotid siphons. The visualized portions of the orbits are normal. The mastoid air cells are clear. Small mucus retention cyst in the right inferior maxillary sinus. No acute fractures are identified. NECK: Scattered subcentimeter lymph nodes are seen in the neck. The muscles of the neck are normal. Fascial planes are preserved and the deep spaces of the neck are normal. The visualized airway is patent. The base of the skull and the temporal bones are normal. The patient is edentulous. Postsurgical changes in the cervical spine with posterior decompression at C3-C4 levels. Multilevel degenerative changes in the cervical spine, with no significant spinal canal stenosis but with multilevel severe bilateral neural foraminal stenosis. Emphysematous changes and scarring in the visualized upper lungs. CTA: There is a common origin of the brachiocephalic trunk and left common carotid artery. The innominate artery and both subclavian arteries are normal in course and caliber. The common carotid arteries are patent without significant stenosis. The cervical internal carotid arteries are patent without significant stenosis. The visualized course and caliber of the internal carotid arteries in the head are normal with mild atherosclerosis without significant stenosis. The anterior and middle cerebral arteries are normal. The vertebral arteries are codominant. The basilar artery is normal. The posterior cerebral arteries are normal. There is no aneurysm or vascular malformation identified. Procedure Note Brian Beach MD PhD - 01/09/2025 EXAMINATION: 1. Computed tomography angiography (CTA) of the head without and with contrast 2. Computed tomography angiography (CTA) of the neck with contrast HISTORY: 74-year-old male with left lower extremity weakness for a little over 24 hours TECHNIQUE: CT of the head was performed with images acquired from skull base to vertex without intravenous contrast. Computed tomographic angiography was obtained from the aortic arch to the vertex following the uneventful administration of intravenous contrast. 3D images of the CTA were generated on a dedicated workstation/bistro server. Contrast information: 70 mL Optiray-350 IV COMPARISON: MRI cervical spine dated 07/18/2012 FINDINGS: HEAD: There is no acute intracranial hemorrhage. 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 Mild generalized parenchymal volume loss with mild ex vacuo ventricular dilation. No mass effect or midline shift is present. Patchy periventricular and subcortical white matter hypoattenuation is nonspecific but may represent chronic small vessel changes. The church-white matter differentiation is preserved. Atherosclerotic calcification of the carotid siphons. The visualized portions of the orbits are normal. The mastoid air cells are clear. Small mucus retention cyst in the right inferior maxillary sinus. No acute fractures are identified. NECK: Scattered subcentimeter lymph nodes are seen in the neck. The muscles of the neck are normal. Fascial planes are preserved and the deep spaces of the neck are normal. The visualized airway is patent. The base of the skull and the temporal bones are normal. The patient is edentulous. Postsurgical changes in the cervical spine with posterior decompression at C3-C4 levels. Multilevel degenerative changes in the cervical spine, with no significant spinal canal stenosis but with multilevel severe bilateral neural foraminal stenosis. Emphysematous changes and scarring in the visualized upper lungs. CTA: There is a common origin of the brachiocephalic trunk and left common carotid artery. The innominate artery and both subclavian arteries are normal in course and caliber. The common carotid arteries are patent without significant stenosis. The cervical internal carotid arteries are patent without significant stenosis. The visualized course and caliber of the internal carotid arteries in the head are normal with mild atherosclerosis without significant stenosis. The anterior and middle cerebral arteries are normal. The vertebral arteries are codominant. The basilar artery is normal. The posterior cerebral arteries are normal. There is no aneurysm or vascular malformation identified. IMPRESSION: 1. No acute intracranial hemorrhage, significant mass effect, or midline shift. 2. 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 3. No large arterial occlusion or significant stenoses in the head or neck. 4. Advanced multilevel bilateral neural foraminal stenosis in the cervical spine with postsurgical changes from posterior decompression at C3-C4. Dictated by: Gisell Pratt DO The radiology attending physician has personally reviewed this study, and had reviewed and/or edited this written report and agrees with it. Electronically signed by: Brian Beach MD, PHD Ruby Thompson NP IMG CT PROCEDURES Final Result * ECG 12 lead (01/09/2025 12:39 PM CDT) 01/09/2025 12:3 9 PM CDT Narrative [facility] - 01/10/2025 12:09 PM CDT Vent Rate: 57 bpm RR Interval: 1042 msec IA Interval: 181 msec QRS Duration: 87 msec QT Interval: 412 msec QTC Interval: 406 msec P-R-T Skippers: 74 - 39 - 64 degrees IMPRESSION: SINUS BRADYCARDIA BORDERLINE ECG Electronically Signed By: Juanita De La Torre [facility] Card us Ruby Thompson NP ECG ORDERABLES Final Re sult [facility] * Troponin T high-sensitivity series (baseline, 2hr, 4hr, 6hr) (01/09/2025 12:22 PM CDT) Trop T hs 14 <=22 ng/L Comment: Interpretive Data For further hscTnT resources including the diagnostic algorithm and an aid in interpretation, copy and paste this link: https://nrl.testcatalog.org/show/hsTrop Current Interpretive Data last revised 2020. Blood 01/09/2025 12:2 2 PM CDT 01/09/2025 12:30 PM CDT us Ruby Renetta Jay VERIFY REP LAB BLOOD ORDERABLES Fin al Result Performing Organization Address [facility] Co de Phone Number [facility] [address] [place] [address] * eGFR (01/09/2025 12:22 PM CDT) Pathologist [facility] eGFR >90 >=60 mL/min/1. 73 m2 Comment: Interpretive Data Reference Interval Normal >/= 90 mL/min/1.73m2 Mildly decreased* 60 - 89 mL/min/1.73m2 Mildly to moderately decreased 45 - 59 mL/min/1.73m2 Moderately to severely decreased 30 - 44 mL/min/1.73m2 Severely decreased 15 - 29 mL/min/1.73m2 Kidney Failure < 15 mL/min/1.73m2 *Relative to young adult level Estimated glomerular filtration rate is determined by the 2020 CKD-EPI equation recommended by the National Kidney Foundation (A Unifying Approach to GFR Estimation: Recommendations of the NKF-ASK Task Force on Reassessing the Inclusion of Race in Diagnosing Kidney Disease, JASN 2020). The CKD-EPI equation should not be used for patients with unstable renal function and has not been validated in children and those over 70. Current interpretive data was last reviewed 2021. Blood 01/09/2025 12:2 2 PM CDT 01/09/2025 12:30 PM CDT Ruby Thompson VERIFY REP LAB BLOOD ORDERABLES Fin al Result Performing Organization Address City/[facility] Co de Phone Number [facility] [address] Department [place] [address] * Differential, auto (01/09/2025 12:22 PM CDT) Pathologist [facility] Neutrophil abs 4.33 1.50 - 6.50 K/cumm Imm gran abs 0.01 0.00 - 0.10 K/cumm [facility] Lymphocyte abs 1.74 0.80 - 3.30 K/cumm [facility] Monocyte abs 0.73 0.20 - 0.80 K/cumm [facility] Eosinophil abs 0.26 0.00 - 0.50 K/cumm [facility] Basophil abs 0.06 0.00 - 0.10 K/cumm [facility] Neutrophil pct 60.9 % [facility] Comment: Interpretive Data Percent cell count reference ranges are not reported, since discordance with absolute values may lead to misinterpretation of CBC data. Current Interpretive Data was last revised on 2017. Imm gran pct 0.1 % [facility] Comment: Interpretive Data Percent cell count reference ranges are not reported, since discordance with absolute values may lead to misinterpretation of CBC data. Current Interpretive Data was last revised on 2017. Lymphocyte pct 24.4 % [facility] Comment: Interpretive Data Percent cell count reference ranges are not reported, since discordance with absolute values may lead to misinterpretation of CBC data. Current Interpretive Data was last revised on 2017. Monocyte pct 10.2 % [facility] Comment: Interpretive Data Percent cell count reference ranges are not reported, since discordance with absolute values may lead to misinterpretation of CBC data. Current Interpretive Data was last revised on 2017. Eosinophil pct 3.6 % [facility] Comment: Interpretive Data Percent cell count reference ranges are not reported, since discordance with absolute values may lead to misinterpretation of CBC data. Current Interpretive Data was last revised on 2017. Basophil pct 0.8 % [facility] Comment: Interpretive Data Percent cell count reference ranges are not reported, since discordance with absolute values may lead to misinterpretation of CBC data. Current Interpretive Data was last revised on 2017. Blood 01/09/2025 12:2 2 PM CDT 01/09/2025 12:30 PM CDT us Ruby Thompson NP LAB BLOOD ORDERABLES Fin al Result [facility] [address] Department [place] [address] * (ABNORMAL) CBC with auto differential (01/09/2025 12:22 PM CDT) WBC 7.13 3.80 - 9.90 K/cumm Hgb 15.3 13.0 - 17.5 g/dL [facility] Hct 48.2 38.9 - 50.3 % [facility] Plt 285 150 - 400 K/cumm [facility] MPV 9.8 9.1 - 12.3 fL [facility] RBC 5.40 4.30 - 5.80 M/cumm [facility] MCV 89.3 81.3 - 96.4 fL [facility] MCH 28.3 27.1 - 33.3 pg [facility] MCHC 31.7(L) 32.3 - 35.7 g/dL [facility] RDW CV 13.6 11.1 - 14.9 % [facility] RDW SD 44.6 35.7 - 48.1 fL [facility] NRBC abs 0.00 0.00 - 0.01 K/cumm [facility] Blood 01/09/2025 12:2 2 PM CDT 01/09/2025 12:30 PM CDT Ruby Thompson LAB BLOOD ORDERABLES Fin al Result Performing Organization Address City/[facility] Co de Phone Number [facility] [address] [place] [place] [address] * aPTT (01/09/2025 12:22 PM CDT) aPTT 33 28 - 38 sec Comment: Interpretive Data Heparin therapeutic range: 66.0 - 100.0 seconds. Range based on correlation with therapeutic heparin activity range of 0.3 - 0.7 Units/mL. Current interpretive data was last revised on 2023. Blood 01/09/2025 12:2 2 PM CDT 01/09/2025 12:31 PM CDT Ruby Thompson VERIFY REP LAB BLOOD ORDERABLES Fin al Result Performing Organization Address City/[facility]/ZIP Co de Phone Number [facility] [address] Department [place] [place], [place] [id number] [phone] * Protime-INR (01/09/2025 12:22 PM CDT) PT 11.6 9.7 - 13.0 sec INR 1.07 0.90 - 1.20 [facility] Comment: Interpretive data Oral anticoagulant therapeutic ranges: Venous thromboembolism prophylaxis or treatment: 2.0-3.0 CARDIOLOGY Standard range: 2.0-3.0 High-intensity range: 2.5-3.5 Refer to indication-specific guidelines for appropriate target ranges for prosthetic heart valve replacement. Current interpretive data was last revised on 2019. Blood 01/09/2025 12:2 2 PM CDT 01/09/2025 12:31 PM CDT Ruby Thompson NP LAB BLOOD ORDERABLES Fin al Result [facility] [address] [place] [address] * Comprehensive metabolic panel (01/09/2025 12:22 PM CDT) Pathologist [facility] Sodium 139 135 - 145 mmol/L Potassium, pl 3.8 3.3 - 4.9 mmol/L [facility] Chloride 98 97 - 110 mmol/L [facility] CO2 29 22 - 32 mmol/L [facility] Anion gap 12 2 - 15 mmol/L [facility] BUN 10 6 - 25 mg/dL [facility] Creatinine 0.80 0.80 - 1.30 mg/dL [facility] Glucose 88 70 - 199 mg/dL [facility] Comment: Interpretive Data Fasting glucose >/= 126 mg/dl is diagnostic for diabetes. Fasting is defined as no caloric intake for at least 8 hours. Fasting glucose between 100 mg/dl to 125 mg/dl is diagnostic of prediabetes. In a patient with classic symptoms of hyperglycemia or hyperglycemic crisis, a random glucose >/= 200 mg/dl is diagnostic for diabetes. In the absence of unequivocal hyperglycemia, results should be confirmed by repeat testing. The classification and Diagnosis of Diabetes Diabetes Care 202; 46: S19-S40. Current interpretive data was last revised 2022. Calcium 9.3 8.5 - 10.3 mg/dL [facility] Bilirubin, total 0.5 0.1 - 1.2 mg/dL [facility] Protein, pl 7.5 6.5 - 8.5 g/dL [facility] Albumin 4.1 3.5 - 5.0 g/dL [facility] Alk phos 84 40 - 130 Units/L [facility] ALT 9 7 - 55 Units/L [facility] AST 19 10 - 50 Units/L [facility] Blood 01/09/2025 12:2 2 PM CDT 01/09/2025 12:30 PM CDT Ruby Thompson NP LAB BLOOD ORDERABLES Fin al Result [facility] [address] [place] [address] from Last 3 Months Insurance MEDICARE ADVANTAGE MEDICARE ADVANTAGE MEDICARE ADVANTAGE Advance Directives For more information, please contact: [phone] * Full Code (Latest Code Status on File) Date Activated Date Inactivated Comments 01/09/2025 9:50 PM 01/12/2025 5:57 PM Care Teams Occ Ther Relationship Specialty Start Date End Date Robert Kendrick DO PCP - General Internal Medicine 01/09/25 Juanita De La Torre MD [address] [place] [address] Consulting Physician Cardiology 01/12/25
--- OUTSIDE RECORDS SUMMARY | 2025-03-24 09:06 | XMS_ITS | Clinical Summary ---
Author Organization [facility] Address [address] [place] [address] Care Team Providers Care Work Adjustment Instructor Name Role Phone Robert Kendrick DO Primary Care Provider [phone] Allergies No known active allergies Medications SUMAtriptan (IMITREX) 50 MG tablet Take 1 tablet (50 mg total) by mouth 3 (three) times daily as needed for Migraine. 09/16/2024 Active valsartan (DIOVAN) 320 MG tablet Take 1 tablet (320 mg total) by mouth daily. 09/09/2024 Active atogepant (QULIPTA) tablet Take 1 tablet (30 mg total) by mouth daily. Active metoprolol succinate ER (TOPROL-XL) 25 MG 24 hr tablet Take 1 tablet (25 mg total) by mouth 2 (two) times daily. Active Active Problems Problem Noted Date Diagnosed Date Acute diverticulitis 09/27/2024 Social History Tobacco Use Types Packs/Day Years Used Date Smoking Tobacco: Every Day Cigarettes 1 50 Smokeless Tobacco: Never Tobacco Cessation:Ready to Q uit: No; Counseling Given: Yes Alcohol Use Standard Drinks/Week Comments Never 0 (1 standard drink = 0.6 oz pur e alcohol) [facility] Utilities Answer Date Recorded In the past 12 months has e [employer], gas, oil, or water [employer] threatened to shut off services in your home? No 09/27/2024 Humiliation, Afraid, Rape, and Kick questionnair e Answer Date Recorded Within the last year, have y ou been afraid of your partner or ex-partner? No 09/27/2024 Within the last year, have y ou been humiliated or emotionally abused in other ways by your partner or ex-partner? No Within the last year, have y ou been kicked, hit, slapped, or otherwise physically hurt by your partner or ex-partner? No 09/27/2024 Within the last year, have y ou been raped or forced to have any kind of sexual activity by your partner or ex-partner? No 09/27/2024 AUDIT-C Answer Date Recorded Q1: How often do you have a drink containing alc ohol? Never 07/29/2020 Average Number of Drinks Not on file 021 Frequency of Binge Drinking Not on file 07/15 Overall Financial Resource Strain (CARDIA) Answe r Date Recorded How hard is it for you to pa y for the very basics like food, housing, medical care, and heating? Not very hard 09/27/2024 Hunger Vital Sign Answer Date Recorded Within the past 12 months, y ou worried that your food would run out before you got the money to buy more. Never true 09/28/19 25 Within the past 12 months, t he food you bought just didn't last and you didn't have money to get more. Never true 09/27/2024 PRAPARE - Transportation Answer Date Re corded In the past 12 months, has l ack of transportation kept you from medical appointments or from getting medications? No 09/12 In the past 12 months, has l ack of transportation kept you from meetings, work, or from getting things needed for daily living? No 09/27/2024 Housing Stability Vital Sign Answer Ben e Recorded In the last 12 months, was t here a time when you were not able to pay the mortgage or rent on time? No 09/27/2024 In the past 12 months, how m any times have you moved where you were living? 0 09/27/2024 At any time in the past 12 m [facility], were you homeless or living in a jail (including now)? No 09/27/2024 Sex and Gender Information Value Date Recorded Sex Assigned at Male 09/27/2024 9:14 AM CDT Legal Sex Male 5:32 PM CDT Gender Identity Not on file Sexual Orientation Not on file Last Filed Vital Signs Vital Sign Reading Time Taken Comments Blood Pressure 177/83 09/30/2024 7:20 AM CDT nurse notified Pulse 56 09/30/2024 7:20 AM CDT nurse notified Temperature 36.5 C (97.7 F) 09/30/2024 7:20 AM CDT Respiratory Rate 20 09/30/2024 7:20 AM CDT Oxygen Saturation 96% 09/30/2024 7:2 0 AM CDT Inhaled Oxygen Concentration - - Weight 61.1 kg (134 lb 11.2 oz) 09/30/2024 4:23 AM CDT Height 170.2 cm (5' 7) 09/27/2024 2:00 PM CDT Body Mass Index 21.1 09/27/2024 2:00 PM CDT Plan of Treatment Health Maintenance Due Date Last Done Comments Colorectal Cancer Screening Colonoscopy (10 Years) 1950 Hepatitis C 1968 DTaP, Tdap and Td Vaccines (1 - Tdap) 1969 Pneumococcal Vaccine: 50+ Years (1 of 2 - PCV) 1969 Zoster Vaccines (1 of 2) 2000 Annual Medicare Wellness Visit 2015 Lung Cancer Screening 02/08/2021 02/09/2020, 019 COVID-19 Vaccine ( - season) 2025 RSV Immunization or 60+ Years (1 - 1-dose 75+ series) 2025 AAA SCREENING Completed 09/27/2024, 01/13, 2019, Additional history exists Meningococcal B Vaccine Aged Out No l onger eligible based on patient's age to complete this topic Meningococcal Vaccine Aged Out No jacoby ean eligible based on patient's age to complete this topic RSV Immunizations Under 20 Months Aged Out No longer eligible based on patient's age to complete this topic Goals Goal Patient Goal Type Associated Problems Recent Progress Patient-Stated? 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 Severe diverticulitis of the sigmoid colon. 2. No definite perforation or abscess formation at this time. 3. There are multiple small scattered hepatic hypodensities, technically indeterminate. There is an enhancing lesion within the right lobe of the liver measuring 3.5 cm. The appearance is highly suggestive of a hepatic hemangioma but this is incompletely evaluated on this exam. Further evaluation of the liver with MRI of the abdomen with/without contrast is recommended. This can be performed on a nonemergent basis within the near future. 4. Prostatomegaly. Referred By: Interpreted By: Yoan Jacobs DO, 09/27/2024 10:29 AM Narrative 09/27/2024 10:42 AM CDT [address] [address] EXAMINATION: CT abdomen/pelvis with contrast HISTORY: Left lower abdominal pain. No bowel movement for several days. COMPARISON: None. TECHNIQUE: Axial CT images of the abdomen and pelvis after the uneventful intravenous administration of 75 mL of Isovue-370 given through the right antecubital fossa. Sagittal and coronal reformatted image sets. A dose lowering technique was used for this procedure, which may include, but is not limited to, dose reduction technique, automated exposure control, the use of degenerative reconstruction, and ALARA/image gently techniques. FINDINGS: Lower chest: The partially included lung bases are clear. The heart is normally sized. Upper abdomen: The liver is normal in size and contour. There are multiple small scattered hepatic hypodensities, technically indeterminate. There is an enhancing lesion within the right lobe of the liver measuring 3.5 cm. The appearance is highly suggestive of a hepatic hemangioma but this is incompletely evaluated on this exam. Further evaluation of the liver with MRI of the abdomen with/without contrast is recommended. This can be performed on a nonemergent basis within the near future. There is no cholelithiasis. No evidence of acute cholecystitis. There is no biliary ductal dilatation. No visible acute pancreatic abnormalities. The spleen size is at the upper limits of normal. There are small benign calcified splenic granulomas. No adrenal masses. Kidneys: The kidneys enhance symmetrically. No hydronephrosis or nephrolithiasis. There is a simple benign nonenhancing left renal cyst, no imaging follow-up is necessary per consensus criteria. No hydronephrosis or nephrolithiasis. No visible urolithiasis. Vascular: There is atherosclerotic vascular disease. The abdominal aorta remains normal caliber Bowel/mesentery: No ascites or free intraperitoneal air. There is no bowel obstruction. There is colonic diverticulosis. There is severe diverticulitis of the sigmoid colon. No definite perforation or abscess formation at this time. No free air. No bowel obstruction. Moderate stool burden. No herniated bowel loops. Pelvis: There is scattered free fluid and edema within the pelvis related to the diverticulitis. The prostate gland is enlarged. The urinary bladder is under distended and is not well evaluated. Other findings: None. Osseous: There are multilevel degenerative changes within the spine. Mild lumbar scoliosis. Procedure Note Yoan Jacobs DO - 09/27/2024 [facility] [address] [facility] [place] [address] EXAMINATION: CT abdomen/pelvis with contrast HISTORY: Left lower abdominal pain. No bowel movement for several days. COMPARISON: None. TECHNIQUE: Axial CT images of the abdomen and pelvis after the uneventful intravenousadministration of 75 mL of Isovue-370 given through the right antecubitalfossa. Sagittal and coronal reformatted image sets. A dose lowering technique was used for this procedure, which may include,but is not limited to, dose reduction technique, automated exposurecontrol, the use of degenerative reconstruction, and ALARA/image gentlytechniques. FINDINGS: Lower chest: The partially included lung bases are clear. The heart isnormally sized. Upper abdomen: The liver is normal in size and contour. There aremultiple small scattered hepatic hypodensities, technically indeterminate.There is an enhancing lesion within the right lobe of the liver measuring3.5 cm. The appearance is highly suggestive of a hepatic hemangioma butthis is incompletely evaluated on this exam. Further evaluation of theliver with MRI of the abdomen with/without contrast is recommended. Thiscan be performed on a nonemergent basis within the near future. There is no cholelithiasis. No evidence of acute cholecystitis. There isno biliary ductal dilatation. No visible acute pancreatic abnormalities.The spleen size is at the upper limits of normal. There are small benigncalcified splenic granulomas. No adrenal masses. Kidneys: The kidneys enhance symmetrically. No hydronephrosis ornephrolithiasis. There is a simple benign nonenhancing left renal cyst,no imaging follow-up is necessary per consensus criteria. Nohydronephrosis or nephrolithiasis. No visible urolithiasis. Vascular: There is atherosclerotic vascular disease. The abdominal aortaremains normal caliber Bowel/mesentery: No ascites or free intraperitoneal air. There is nobowel obstruction. There is colonic diverticulosis. There is severediverticulitis of the sigmoid colon. No definite perforation or abscessformation at this time. No free air. No bowel obstruction. Moderatestool burden. No herniated bowel loops. Pelvis: There is scattered free fluid and edema within the pelvis relatedto the diverticulitis. The prostate gland is enlarged. The urinarybladder is under distended and is not well evaluated. Other findings: None. Osseous: There are multilevel degenerative changes within the spine. Mildlumbar scoliosis. IMPRESSION: 1. Severe diverticulitis of the sigmoid colon. 2. No definite perforation or abscess formation at this time. 3. There are multiple small scattered hepatic hypodensities, technicallyindeterminate. There is an enhancing lesion within the right lobe of theliver measuring 3.5 cm. The appearance is highly suggestive of a hepatichemangioma but this is incompletely evaluated on this exam. Furtherevaluation of the liver with MRI of the abdomen with/without contrast isrecommended. This can be performed on a nonemergent basis within the nearfuture. 4. Prostatomegaly. Referred By: Interpreted By: Yoan Jacobs DO, 09/27/2024 10:29 AM us Princess Martinez MD CT Final Resu lt * CT CHEST WO CON (02/09/2020 2:12 PM CDT) Anatomical Region Laterality Modality Chest Computed Tomogra phy 02/09/2020 4:48 PM CDT Impressions 02/09/2020 5:14 PM CDT IMPRESSION: 1. Moderately advanced emphysema and the sequelae of remote granulomatous disease. 2. Nonspecific mediastinal adenopathy with slight interval decrease in size of dominant precarinal lymph node and aortopulmonary fritz conglomeration as above. 3. Indeterminate hypodense 3.3 cm mass within the right hepatic lobe, unchanged relative to 09/09/2018 comparison. Stability suggests benignity and appearance on prior contrast enhanced CT is most suggestive of a hepatic hemangioma. This can be more definitively evaluated with dedicated hepatic hemangioma protocol MRI versus CT. 4. Simple left renal cyst. Interpreted By: Delfino Comer, 02/09/2020 4:48 PM Narrative 02/09/2020 5:14 PM CDT EXAMINATION: CT CHEST WO CON INDICATIONS: Tobacco use, Enlarged lymph nodes, unspecified TECHNIQUE: Contiguous unenhanced axial CT images through the chest with coronal and sagittal reformats. A dose lowering technique was used for this procedure, which may include, but is not limited to, dose reduction technique, automated exposure control, the use of iterative reconstruction, and ALARA (As Low As Reasonably Achievable) / Image Gently techniques. COMPARISON: CT chest 03/27/2019 and 09/09/2018; PET/CT 2019. FINDINGS: Unremarkable unenhanced appearance of the visualized thyroid. No visualized supraclavicular, axillary, or thoracic inlet adenopathy. Slight interval decrease in size of a circumscribed 8 mm retrosternal lymph node centrally within the anterior mediastinum at the thoracic inlet (previously 9 mm in short axis). Lack of intravenous contrast limits evaluation of the vasculature, mediastinum, and abdominal viscera. Normal variant two-vessel aortic arch.. Scattered atherosclerotic calcifications of the aorta and its major branching vessels. Heart size is normal without pericardial effusion. The central airways are patent without endobronchial lesion. Multiple prominent mediastinal lymph nodes measuring up to 1.3 cm in short axis at the precarinal station (previously 1.5 cm by my measurements). Slight interval decrease in size of a calcified 11 x 32 mm fritz conglomeration at the aortopulmonary window (previously 11 x 36 mm by my measurements). Stable hyperdense 8 mm lymph node at the right hilum. Calcified mediastinal and hilar granulomata. No bulky hilar adenopathy. The lungs are well expanded without consolidation, effusion, or pneumothorax. Biapical fibrotic scarring, unchanged. Moderate upper zone predominant centrilobular and paraseptal emphysema. Scattered calcified granulomata. No suspicious pulmonary nodule. Fat-containing right Bochdalek hernia. Gross stable ill-defined hypoattenuating 3.3 cm mass at the right hepatic lobe. Additional 9 mm low-density lesion anteriorly at the subcapsular right hepatic lobe is too small to fully characterize by any imaging modality, but grossly unchanged and statistically benign. Numerous calcified splenic granulomata. Partially exophytic noncalcified 3.7 cm simple fluid attenuating left renal cyst. No adenopathy or ascites visualized upper abdomen. The aorta and IVC are normal in caliber. Retroareolar gynecomastia bilaterally. No soft tissue mass or fluid collection. No acute or aggressive osseous lesion. Procedure Note Delfino Comer MD - 02/09/2020 EXAMINATION: CT CHEST WO [facility] INDICATIONS: Tobacco use, Enlarged lymph nodes, unspecified TECHNIQUE: Contiguous unenhanced axial CT images through the chest with coronal and sagittal reformats. A dose lowering technique was used for this procedure, which mayinclude, but is not limited to, dose reduction technique, automated exposure control, the use of iterative reconstruction, and ALARA (As Low As Reasonably Achievable) / Image Gently techniques. COMPARISON: CT chest 03/27/2019 and 09/09/2018; PET/CT 2019. FINDINGS: Unremarkable unenhanced appearance of the visualized thyroid. No visualized supraclavicular, axillary, or thoracic inlet adenopathy. Slight interval decrease in size of a circumscribed 8 mm retrosternallymph node centrally within the anterior mediastinum at the thoracic inlet (previously 9 mm in short axis). Lack of intravenous contrast limits evaluation of the vasculature, mediastinum, and abdominal viscera. Normal variant two-vessel aortic arch.. Scattered atherosclerotic calcifications of the aorta and its major branching vessels. Heart size is normal without pericardial effusion. The central airways are patent without endobronchial lesion. Multiple prominent mediastinal lymph nodes measuring up to 1.3 cm inshort axis at the precarinal station (previously 1.5 cm by my measurements). Slight interval decrease in size of a calcified 11 x 32 mm fritz conglomeration at the aortopulmonary window (previously 11 x 36 mm by my measurements). Stable hyperdense 8 mm lymph node at the right hilum. Calcified mediastinal and hilar granulomata. No bulky hilar adenopathy. The lungs are well expanded without consolidation, effusion, or pneumothorax. Biapical fibrotic scarring, unchanged. Moderate upper zone predominant centrilobular and paraseptal emphysema. Scattered calcified granulomata. No suspicious pulmonary nodule. Fat-containing right Bochdalek hernia. Gross stable ill-defined hypoattenuating 3.3 cm mass at the righthepatic lobe. Additional 9 mm low-density lesion anteriorly at the subcapsular right hepatic lobe is too small to fully characterize by any imaging modality, but grossly unchanged and statistically benign. Numerous calcified splenic granulomata. Partially exophytic noncalcified 3.7 cm simple fluid attenuating leftrenal cyst. No adenopathy or ascites visualized upper abdomen. The aorta and IVC are normal in caliber. Retroareolar gynecomastia bilaterally. No soft tissue mass or fluid collection. No acute or aggressive osseous lesion. IMPRESSION: 1. Moderately advanced emphysema and the sequelae of remotegranulomatous disease. 2. Nonspecific mediastinal adenopathy with slight interval decrease insize of dominant precarinal lymph node and aortopulmonary nodalconglomeration as above. 3. Indeterminate hypodense 3.3 cm mass within the right hepatic lobe, unchanged relative to 09/09/2018 comparison. Stability suggests benignity and appearance on prior contrast enhanced CT is most suggestive of a hepatic hemangioma. This can be more definitively evaluated withdedicated hepatic hemangioma protocol MRI versus CT. 4. Simple left renal cyst. Interpreted By: Delfino Comer, 02/09/2020 4:48 PM us Celsa Dyson MD CT Final Resul t from Last 3 Months or Most Recently Relevant to [place] [id number] Advance Directives * Full Code (Latest Code Status on File) Date Activated Date Inactivated Comments 09/27/2024 11:23 AM 09/30/2024 1:09 PM Care Teams Work Adjustment Instructor Relationship Specialty Start Date End Date Robert Kendrick DO [address] [place] [id number] PCP - General INTERNAL MEDICINE 09/27/24
== END 2025-03-24 08:40 | disposition home or self-care (01) ==
PROVIDERS: PCP Internal Medicine; Visit Provider Internal Medicine Cardiovascular Disease
DX: R93.1 Abnormal findings on diagnostic imaging of heart and coronary circulation (principal); I47.29 Other ventricular tachycardia; R07.9 Chest pain, unspecified
CPT/HCPCS: 93017; 93306

== ENCOUNTER 2025-05-31 07:59 | Outpatient (CLI) | payer MEDICARE, SELFPAY ==
--- NOTE | ~2025-05-31 | CT_ITS ---
EXAMINATION:CT lung screening DATE: 05/31/2025 08:27 INDICATION: Screening TECHNIQUE: Computed tomography (CT) of the chest was performed without intravenous contrast. The dose-length product (DLP) was 69.96 mGy-cm. COMPARISON: June 02, 2024 FINDINGS: Atypical right apical pleural thickening unchanged in appearance. Calcified granulomas unchanged in appearance. No new nodules or masses. Moderately severe emphysematous changes throughout the lungs. No acute process. 4.6 cm ascending thoracic aortic aneurysm at the level sinuses not significantly changed given variation in measurement. Heart size normal with no significant pericardial effusion or bulky lymphadenopathy. Bones intact. Large cyst in the left kidney not grossly changed given technique. IMPRESSION: 1. No significant interval change from the May 2024 exam. Lung RAD 2. Recommend follow-up low-dose lung cancer screening chest CT in 12 months. Reviewed, dictated and finalized at location A. RSEMENT CLERK IMPRESSION: 1. No significant interval change from the May 2024 exam. Lung RAD 2. Neil mmend follow-up low-dose lung cancer screening chest CT in 12 months.
== END 2025-05-31 08:00 | disposition home or self-care (01) ==
PROVIDERS: PCP Internal Medicine; Visit Provider Nurse Practitioner Family
DX: Z12.2 Encounter for screening for malignant neoplasm of respiratory organs (principal); Z87.891 Personal history of nicotine dependence
CPT/HCPCS: 71271